=== PATIENT | female | born 1965 | race Caucasian/White ===

== ENCOUNTER 2022-07-31 14:00 | Inpatient (IN) ==
--- OUTSIDE RECORDS SUMMARY | 2022-07-31 14:56 | External Medical Summary | Encounter Summary ---
:1965 Author Care Team Providers Name Role Phone Shakila Crockett NP Primary Care Provider [phone] Marisa Goyal DO General Surgeon [phone] Reason for Visit Left arm pain left arm swollen after surgery Assessment and Plan 1. Phlebitis Patient had dropped a metal planter on her foot and had a laceration. Patient went to the emergency department and was found to have metal shards that she needed to have surgery. For the last 2 days lonnie lebron's left arm along the medial aspect above her elbow is started to hurt and have redness. Patient did have an left antecubital IV for surgery. Erythemic area is 10-1/2 cm x 5 cm. Patient is currently on cephalexin 500 mg 4 times a day. Plan: We will start patient on sulfameth oxazole trimethoprim 1 tablet twice daily for 7 days and order a stat venous ultrasound of her left upper extremity. We will call patient with these results and l et her know if she needs to continue wit h her antibiotics. sulfamethoxazole 800 mg-trimethoprim 160 mg tablet US, duplex, venous, upper extremity Discussion Note: None recorded.Patient educational handouts: No information available. Plan of Care Reminders Provider Appointments Medicare Annual 08/12/2022 3:15PM Shakila Zheng, [facility] CABLE INSTALLATION MANAGER Return to Office on or around [address] mukul NP 07/30/2023 Return to Office on or around 09/27/2023 Lab None recorded. Referral None recorded. Procedures None recorded. Surgeries None recorded. Imaging US, Duplex, Venous, 05/05/2022 [facility] Upper Extremity Medications Name Start Date albuterol 90 mcg/actuation aerosol inhaler albuterol sulfate HFA 90 mcg/actuation aerosol inhaler inhale 2 puffs by mouth every 6 hours i f needed for shortness of ... (REFER TO PRESCRIPTION NOTES). atorvastatin 40 mg tablet take 1 tablet by mouth once daily calcium carbonate 1200 mg daily calcium carbonate 600 mg-vitamin D3 5 mcg (200 unit) t ablet cyanocobalamin (vit B-12) 1,000 mcg/mL injection solut ion Inject 1 mL every month by intramuscular route. Eliquis 5 mg tablet take 2 tablets by mouth twice a day for 7 days then t gabriela 1 tablet twice a day eszopiclone 1 mg tablet take 1 tablet by mouth at bedtime fentanyl 12 mcg/hr transdermal patch apply 1 patch every 72 hours fluoxetine 40 mg capsule take 2 capsules by mouth once daily ipratropium 0.5 mg-albuterol 2.5 mg/2.5 mL solution fo r nebulization Inhale 1 mL every 6 hours by inhalation route as need ed. levothyroxine 100 mcg tablet take 1 tablet by mouth once daily lithium carbonate 300 mg capsule take 1 capsule by mouth once daily metoclopramide 10 mg tablet take 1 tablet by mouth before meals TAKE ABOUT 30 MIN UTES BEFORE MEALS molnupiravir 200 mg capsule (EUA) naloxone 4 mg/actuation nasal spray ADMINISTER A SINGLE spray INTO ONE NOSTRIL CALL 911 M AY REPEAT ONCE omeprazole 20 mg capsule,delayed release take 1 capsule by mouth twice a day oxycodone-acetaminophen 10 mg-325 mg tablet take 1 tablet by mouth three times a day NEEDED FO R PAIN Prolia 60 mg/mL subcutaneous syringe 07/17/2022 Inject 1 mL every day by subcutaneous route. promethazine 25 mg tablet take 1 tablet by mouth every 8 hours Promethegan 25 mg rectal suppository unwrap and insert 1 suppository rectall y every 6 hours if needed for nausea and vomiting scopolamine 1 mg over 3 days transdermal patch apply 1 PATCH TO SKIN BEHIND EAR AND REPLACE EVERY 72 HOURS DIRECTED sucralfate 100 mg/mL oral suspension take 10 milliliters by mouth four times a day topiramate 25 mg tablet take 1-4 tablets by mouth twice a day Trelegy Ellipta 1 qd valacyclovir 1 gram tablet take 1 tablet by mouth twice a day Vitamin D3 25 mcg (1,000 unit) capsule Take 2 capsules every day by oral route. Xtampza ER 18 mg capsule sprinkle take 1 capsule by mouth every 12 hours Yupelri 175 mcg/3 mL solution for nebulization inhale contents of 1 vial WITH NEBULIZE R ONCE DAILY RINSE AND CLEAR MOUTH AFTER USE zolpidem 10 mg tablet take 1 tablet by mouth at bedtime Notes: Also takes Chad, monty med ications with patient verbally. -AG 07/30 Medications Administered None recorded. Vitals Height Weight BMI Blood Pressure 5 ft 6.5 in 112/58 mm[Hg] Results Lab Results None recorded. 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 Bipolar Disorder Active 11/14/2019 History of Malignant Neoplasm of Cervix Active 11/14/20 19 History of Malignant Neoplasm of Uterine Body Active History of non-Hodgkins Lymphoma Active 11/14/2019 History of Pulmonary Embolus Active 11/14/2019 Impingement Syndrome of Shoulder Region Active 05/02/20 20 Partial Thickness Rotator Cuff Tear Active 05/02/2020 Primary Herpes Simplex Infection of Genitalia Active SjGren's Syndrome Active 08/06/2021 Persistent Insomnia Active 02/19/2022 Unexplained Weight Loss Active 02/19/2022 Insomnia Active 02/25/2022 Second Degree Atrioventricular Block Active 04/16/2022 Bradycardia Active 04/16/2022 Postural Dizziness Active 04/16/2022 Nausea and Vomiting Active 04/16/2022 Phlebitis Active 05/05/2022 Thrombophlebitis Active 05/05/2022 Superficial Thrombophlebitis Active 05/06/2022 Hernia of Anterior Abdominal Wall Active 06/17/2022 Dysfunction of Eustachian Tube Active 07/03/2022 Lymphadenopathy Active 07/03/2022 History of Myocardial Infarction Active 07/17/2022 Lesion of Spleen Active 07/17/2022 Malignant Neoplastic Disease Active Pulmonary Embolism Active Pharyngitis Active Acute Exacerbation of Chronic Bronchitis Active Chronic Obstructive Lung Disease Active Cholecystitis Active Cellulitis Active Pain in Right Lower Limb Active Vertigo Active Headache Active Neck Swelling Active Cough Active Chest Pain Active Rib Pain Active Fracture of Phalanx of Foot Active Procedures Date Name Performed by 11/16/2019 Hysterectomy Information not avai lable 01/10/2019 Excision Information not avai lable Notes: Excision of soft ti ssue masses, left elbow in the subcutaneous tissue by Dr. Marisa Goyal. 11/16/2013 Breast Implants Information not avai lable Fracture Surgery Information not avai lable Notes: left foot open fx metatarsals Procedure on Tongue Information not avai lable Notes: removed lump Elbow Surgery Information not avai lable Notes: multiple soft tissue mass remov als Wrist Surgery Information not avai lable Notes: left Shoulder Surgery Information not avai lable Notes: left Caesarean Section Information not avai lable Tonsilectomy/adenoids Information not av ailable 04/16/2022 [facility] [address] [place] [address] [place] [id number] (Work Place) 05/05/2022 US, Duplex, Venous, Upper Extremity [facility] [address] [facility] [place] [id number] (Work Place) Vaccine List Vaccine Type COVID-19 (SARS-COV-2) vaccine, unspecifi ed 12/31/2020 01/28/2021 influenza, injectable, quadrivalent, pre servative free 09/27/20180.5 mL 09/12/20190.5 mL 10.5 mL Tdap 09/27/20180.5 mL Social History Tobacco Smoking Status Light Tobacco Smoker (1/4 pack per da y) Do you have difficulty walking or climbing N stairs? What type of diet are you following? REGULAR Are you able to walk? YESWOREST Are you able to care for yourself? Y Are you currently employed? N Have you processed blood or body fluids N from an Ebola virus disease patient without appropriate PPE? What is your relationship status? What is your level of alcohol consumption? None Which illicit or recreational drugs have none you used? Have you been to an area known to be high N risk for COVID-19? Are you deaf or do you have serious N difficulty hearing? Are you passively exposed to smoke? Y Do you use your seat belt or car seat Y routinely? Do you or have you ever used any other N forms of tobacco or nicotine? Do you have difficulty dressing or bathing? N What is the highest grade or level of [id number] school you have completed or the highest degree you have received? Has tobacco cessation counseling been Y provided? Are you blind or do you have difficulty Y seeing? Do you have smoke and carbon monoxide Y detectors in your home? In the 14 days before symptom onset, have N you had close contact with a person who is under investigation for COVID-19 while that person was ill? Do you have difficulty doing errands alone? N Do you reside in or have you traveled to an area where Ebola virus transmission is active? What was the date of your most recent 07/30/2022 tobacco screening? Do you or have you ever used e-cigarettes Current user of el ectronic cigarettes or vape? Do you have an advanced directive? N Do you use any illicit or recreational N drugs? What is your exercise level? Occasional In the 14 days before symptom onset, have N you had close contact with a laboratory-confirmed COVID-19 while that case was ill? Have there been any changes to your family N or social situation? How many years have you smoked tobacco? 35 Do you or have you ever used smokeless Never used smokeless tobacco tobacco? On what date was tobacco cessation 07/03/2022 counseling provided? Do you have difficulty concentrating, N remembering or making decisions? What is your level of caffeine consumption? Heavy Do you feel stressed (tense, restless, [id number] nervous, or anxious, or unable to sleep at night)? 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 Yes Past Encounters 05/05/2022 Phlebitis Shakila Crockett CABLE INSTALLATION MANAGER: [address] [facility] [place] [address], Ph. 04/16/2022 Postural Dizziness; Nausea and Vomiting; Bradycardia; Second Degree Atrioventricular Block Shakila Crockett, CABLE INSTALLATION MANAGER: [address] [place] [address], Ph. History of Present Illness Note: <div>56-year-old female in today with concerns of left arm pain after a foot surgery.</div><div>
</div><div>Patient had dropped a metal planter on her foot and had a laceration. Patient went to the emergency department and was found to have metal shards that sheneeded to have surgery. For the last 2 days patient's left arm along the medial aspect aboveher elbow is started to hurt and have redness. Patient did have an left antecubital IV for surgery. Erythemic area is 10-1/2 cm x 5 cm. Patient is currently on cephalexin 500 mg 4 times a day.</div> Review of Systems Comprehensive General Adult ROS Reported By: Patient Constitutional: Required Findings Pain scale (5 / 10). Constitutional: no fever, no night sweats, no s ignificant weight gain, no significant weight loss, no exercise intolerance, no chills, no malaise Eyes: Eyes: no dry eyes, no vision change, no irritation, no eye disease/injury ENMT: Ears: no difficulty hearing, no ear pain. Nose: no frequent nosebleeds, no nose problems , no sinus problems. Mouth/Throat: no sore throat, no bleeding gums, no snoring, no dry mouth, no mouth ulcers, no oral abnorm alities, no teeth problems, no ringing in the ears, no sinu sitis Cardiovascular: Cardiovascular: no chest jovanni n, no arm pain on exertion, no shortness of breath when wal hossein, no shortness of breath when lying down, no palpitations, no known heart murmur, no ankle swelling Respiratory: Respiratory: cough Gastrointestinal: Gastrointestinal: no abdomin al pain, no nausea, no vomiting, no constipation, normal appe tite, no diarrhea, not vomiting blood, no dyspepsia, no GERD Genitourinary: Genitourinary: no incontinen ce, no difficulty urinating, no hematuria, no increased freq uency Musculoskeletal: Musculoskeletal: muscle ache s, difficulty walking Integumentary: Skin: no abnormal mole, no j aundice, no rashes, no laceration, no non-healing areas, no lorna nges in hair/nails, no psoriasis, no change in skin color, no breast lump Neurologic: Neurologic: weakness, dizzin ess, gait dysfunction Psychiatric: Psych: anxiety Endocrine: Endocrine: no fatigue Hematologic/Lymphatic: Hematologic/Lymphatic no swo llen glands, no bruising, no excessive bleeding, no anemi a, no phlebitis Allergic/Immunologic: Allergy/Immunologic: no runn y nose, no sinus pressure, no itching, no hives, no freque nt sneezing Notes: <div><strong>PAIN ASSESSMENT </strong></div><div>1. Pain assessed rating {{0|1|2|3|4| 5*|6|7|8|9|10}}/10 using standard pain scale.</div><div>2. Int ervention for pain {{n/a|yes|no}} ___</div><div>3. Pain reassessed at minutes as {{0|1|2 |3|4|5|6|7|8|9|10}} using standard pain scale.</div><div><stron g> SAFETY / ABUSE SCREENING ASSESSMENT </strong></div><d iv>1. Have you fallen in the last 30 days? {{yes*|no}}</div><d iv>2. Are you currently in a relationship where you feel threatened or afraid? {{yes|no*}}</div><div>3. [place] / neglect symptoms observed by clinician? {{yes|no}} If yes , was a referral made to an agency {{n/a|yes|no}}</div><div>&lt ;br></div> Physical Exam Skin Exam Reported By: Patient Skin: Lower Extremities Right: pat ch; Warm and tender Notes: <div>General appearance: No acute distress, pleasant.
Grooming: Adequate.
Orientation: X3
Speech: Fluent
Comprehension: Intact
Eye contact: Good< br>Mood: Good
Thoughts: Logical
Insight: Good
Judgment: Good
Recall: Good</div><div>Assessment: 2 0-minute [id number] interview discussing symptoms and treatment optio ns
</div>"
--- OUTSIDE RECORDS SUMMARY | 2022-07-31 14:56 | External Medical Summary ---
:1965 Author Care Team Providers Name Role Phone ALVAL STOCK DO General Surgeon [phone] [employer]AKIL[employer] Primary Care Provider [phone] Allergies Code Code System Name Reaction Severity Status Onset 7052 RxNorm Morphine Active 05/05/2022 NKDA Notes: Patient indicated NO allergies 07/29/2022 Medications Name Status Start Date Stop Date albuterol 90 mcg/actuation aerosol inhaler Active Not available albuterol sulfate HFA 90 mcg/actuation aerosol inhaler Active Not available inhale 2 puffs by mouth every 6 hours i f needed for shortness of ... (REFER TO PRESCRIPTION NOTES). amoxicillin 875 mg-potassium clavulanate 125 mg Completed 04/22/2017 01/04/2019 tablet aspirin 81 mg tablet,delayed release Completed 06/17/2022 atorvastatin 40 mg tablet Active Not av ailable take 1 tablet by mouth once daily atorvastatin calcium 40 mg tabs Completed 04/16/2020 azithromycin 250 mg tablet Completed 01/21 take 2 tablets by mouth today then take 1 tablet DAILY FOR 4 DA YS azithromycin 500 mg tablet Completed 08/02 BinaxNOW COVID-19 Ag Card kit Completed biotin Completed 04/16/2020 calcium carbonate Active Not available 1200 mg daily calcium carbonate 600 mg-vitamin D3 5 mcg (200 Active Not available unit) tablet cephalexin 500 mg capsule Completed 2021 take 1 capsule by mouth four times a day ciprofloxacin 250 mg tablet Completed 09/16 clotrimazole 10 mg sherin Completed 2019 cyanocobalamin (vit B-12) 1,000 mcg/mL injection solution Active Not available Inject 1 mL every month by intramuscular route. diphenhydramine 25 mg-acetaminophen 500 mg Completed 01/05/2017 tablet docusate sodium 100 mg capsule Completed 0 04/22/2017 Eliquis 5 mg tablet Active Not availabl e take 2 tablets by mouth twice a day for 7 days then take 1 tablet twice a day erythromycin 5 mg/gram (0.5 %) eye ointment Completed 05/16/2019 eszopiclone 1 mg tablet Active Not avai lable take 1 tablet by mouth at bedtime eszopiclone 2 mg tablet Completed 02/20/20 22 take 1 tablet by mouth at bedtime fentanyl 12 mcg/hr transdermal patch Active Not available apply 1 patch every 72 hours fluconazole 150 mg tablet Completed 2018 Take 1 tablet every day by oral route. fluconazole 200 mg tablet Completed 2017 fluoxetine 20 mg capsule Completed 022 fluoxetine 40 mg capsule Active Not arpit ilable take 2 capsules by mouth once daily fluoxetine 60 mg tablet Completed 11/05/20 21 take 1 tablet by mouth once daily fluticasone propionate 50 mcg/actuation blister Completed 04/28/2017 powder for inhalation hydrocodone 10 mg-acetaminophen 325 mg tablet Completed 10/29/2016 hydrocodone 5 mg-acetaminophen 325 mg tablet Completed 06/17/2022 take 1 tablet by mouth every 6 hours hydrocodone 7.5 mg-acetaminophen 325 mg tablet Completed 10/29/2016 ibuprofen Completed 11/13/2021 prn ibuprofen 200 mg capsule Completed 017 ipratropium 0.5 mg-albuterol 2.5 mg/2.5 mL solution for nebuliza tion Active Not available Inhale 1 mL every 6 hours by inhalation route as needed. ipratropium 0.5 mg-albuterol 3 mg (2.5 mg Completed 06/17/2022 base)/3 mL nebulization soln levothyroxine 100 mcg tablet Active Not available take 1 tablet by mouth once daily levothyroxine 50 mcg tablet Completed 12/17 levothyroxine 75 mcg tablet Completed 07/17 levothyroxine 88 mcg tablet Active Not available levothyroxine sodium 100 mcg tabs Completed 04/16/2020 lidocaine 5 % topical patch Active 07/31/2021 Not available lithium carbonate 300 mg capsule Active Not available take 1 capsule by mouth once daily lithium carbonate 300 mg tablet Completed 09/27/2018 Take 1 tablet every day by oral route. methylprednisolone 4 mg tablets in a dose pack Completed 11/13/2021 use as directed FOLLOW DIRECTIONS ON BACK OF FOIL PACK metoclopramide 10 mg tablet Active Not available take 1 tablet by mouth before meals TAKE ABOUT 30 MINUTES BEFOR E MEALS molnupiravir 200 mg capsule (EUA) Active Not available naloxone 4 mg/actuation nasal spray Active Not available ADMINISTER A SINGLE spray INTO ONE NOSTRIL CALL 911 MAY REPEAT ONCE nystatin 100,000 unit/mL oral suspension Completed 11/13/2021 omeprazole 20 mg cpdr Completed 04/16/2020 omeprazole 20 mg capsule,delayed release Active Not available take 1 capsule by mouth twice a day ondansetron HCl 4 mg tablet Completed 12/21/201712/17 oxycodone ER 10 mg tablet,crush resistant,extended release 12 hr Completed 11/14/2019 Take 1 tablet every 12 hours by oral route. oxycodone-acetaminophen 10 mg-325 mg tablet Active Not available take 1 tablet by mouth three times a day NEEDED FOR PAIN OxyContin 20 mg tablet,crush resistant,extended release Unknown Not available take 1 tablet by mouth every 12 hours oxygen Completed 11/13/2021 Paxlovid 300 mg (150 mg x 2)-100 mg tablets in a dose pack (EUA) Completed 05/06/2022 Take 3 tablets twice a day by oral route. prednisone 10 mg tablet Completed 12/21/2017 01/04/20 19 prednisone 20 mg tablet Completed 01/22/20 21 take 1 tablet by mouth once daily prednisone 5 mg tablet Completed 6 pregabalin 100 mg capsule Completed 2016 Prolia 60 mg/mL subcutaneous syringe Active 07/17/2022 Not available Inject 1 mL every day by subcutaneous route. promethazine 25 mg tablet Active Not av ailable take 1 tablet by mouth every 8 hours Promethegan 25 mg rectal suppository Active Not available unwrap and insert 1 suppository rectall y every 6 hours if needed for nausea and vomiting rivaroxaban 10 mg tablet Completed 016 rivaroxaban 20 mg tablet Completed 017 scopolamine 1 mg over 3 days transdermal patch Active Not available apply 1 PATCH TO SKIN BEHIND EAR AND REPLACE EVERY 72 HOURS DIRECTED sennosides 8.6 mg tablet Completed 016 sertraline 100 mg tablet Completed 020 Take 1 tablet every day by oral route. Spiriva with HandiHaler Completed 09/27/20 18 1 inhalation daily sucralfate 1 gram tablet Completed 018 sucralfate 100 mg/mL oral suspension Active Not available take 10 milliliters by mouth four times a day sulfamethoxazole 800 mg-trimethoprim 160 mg tablet Active Not available take 1 tablet by mouth twice a day for 7 days Symbicort 160 mcg-4.5 mcg/actuation HFA aerosol Completed 06/17/2022 inhaler tiotropium bromide 18 mcg capsule with Completed 06/17/2022 inhalation device topiramate 25 mg tablet Active Not avai lable take 1-4 tablets by mouth twice a day Trelegy Ellipta Active Not available 1 qd valacyclovir 1 gram tablet Active Not a vailable take 1 tablet by mouth twice a day valacyclovir 500 mg tablet Completed 06/17 Vitamin D3 25 mcg (1,000 unit) capsule Active Not available Take 2 capsules every day by oral route. Xtampza ER 18 mg capsule sprinkle Active Not available take 1 capsule by mouth every 12 hours Yupelri 175 mcg/3 mL solution for nebulization Active Not available inhale contents of 1 vial WITH NEBULIZE R ONCE DAILY RINSE AND CLEAR MOUTH AFTER USE zolpidem 10 mg tablet Active Not availa ble take 1 tablet by mouth at bedtime zolpidem 5 mg tablet Completed 04/16/2022 take 1 tablet by mouth at bedtime Notes: Also takes Kratom, verified med ications with patient verbally. 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 Al Stock. 11/16/2013 Breast Implants Information not avai lable [...] avai lable Tonsilectomy/adenoids Information not av ailable 05/16/2019 Unlisted Imaging Order [facility] [address] [place] [id number] (Work Place) 07/19/2019 MAMMO, Screening, Bilateral [facility] [address] [place], [place] [id number] (Work Place) 08/02/2019 MAMMO, Diagnostic, Digital, Unilateral [facility] [address] [place] [id number] (Work Place) 11/30/2019 US, Abdomen [facility] [address] [place] [id number] (Work Place) 01/30/2020 US, Breast [facility] [address] [place] [address], [place] [id number] (Work Place) 02/15/2020 Unlisted Imaging Order [facility] [address] [place] [id number] (Work Place) 06/19/2020 Dexa [facility] [address] [place] [id number] (Work Place) 10/22/2020 MAMMO, Screening, Digital, Bilateral [facility] [address] [place] [id number] (Work Place) 10/22/2020 US, Breast, Unilateral [facility] [address] [place] [id number] (Work Place) 08/06/2021 MAMMO, Screening, Digital, Bilateral [facility] [address] [place] [id number] (Work Place) 11/18/2021 CT, Neck, Soft Tissue, W/wo Contrast [facility] [address] [place] [address], [place] [id number] (Work Place) 12/11/2021 PET-CT, Skull Base to Mid-thigh Scan [facility] [address] [place] [address], [place] [id number] (Work Place) 01/02/2022 XR, Chest, 2 View [facility] [address] [place] [address], [place] [id number] (Work Place) 04/16/2022 Electrocardiogram [facility] [address] [place] [id number] (Work Place) 05/05/2022 US, Duplex, Venous, [facility] Extremity [facility] [address] [place] [address], [place] [id number] (Work Place) Results Lab Results Date Name Specimen Result Interpretation Description Value Range Status Address 04/16/2022 CBC W/ Whole Wbc 4.6 K/mcL 4.5-11.0 Final P athologists' Auto Diff Blood K/mcL Regiona l Lab: [address] [facility] , [place] Whole Rbc 4.13 3.59-5.38 Final Patholo gists' Blood M/mcL M/mcL Regional L ab: [address] [facility] , [place] Whole Hgb 12.6 g/dL 11.2-15.7 Final Path ologists' Blood g/dL Regional L ab: [address] [facility] , [place] Whole Hct 38.6 % 34.1-44.9 % Final Patho logists' Blood Regional L ab: [address] [facility] , [place] Whole Mcv 93.5 fL 80.0-100.0 Final Patho logists' Blood fL Regional L ab: [address] [facility] , [place] Whole Mch 30.5 pg 26.0-34.0 pg Final Pat hologists' Blood Regional L ab: [address] [facility] , [place] Whole Mchc 32.6 g/dL 31.0-36.0 Final Path ologists' Blood g/dL Regional L ab: [address] [facility] , [place] Whole Rdw 13.1 % 11.5-14.5 % Final Patho logists' Blood Regional L ab: [address] [facility] , [place] Whole Plt CT 263 K/mcL 140-440 Final Patho logists' Blood K/mcL Regional L ab: [address] [facility] , [place] Whole High Mpv 10.6 fL 7.4-10.4 fL Final Path ologists' Blood Regional L ab: [address] [facility] , [place] Whole Neut % 38.8 % 38.0-78.0 % Final Path ologists' Blood Regional L ab: [address] [facility] , [place] Whole High Lymph 50.2 % 15.5-49.0 % Final Patho logists' Blood % Regional L ab: [address] [facility] , [place] Whole [place] % 6.8 % 1.0-12.0 % Final Patho logists' Blood Regional L ab: [address] [facility] , [place] Whole Eos % 3.5 % 0.0-7.0 % Final Patholo gists' Blood Regional L ab: [address] [facility] , [place] Whole Baso % 0.7 % 0.0-2.0 % Final Pathol ogists' Blood Regional L ab: [address] , [place] Whole Low Absolu 1.78 1.80-8.00 Final Pathol ogists' Blood te K/mcL K/mcL Regional L ab: Neutrop [address], hil [place] Count Whole Lymph 2.30 1.50-4.80 Final Patholo gists' Blood # K/mcL K/mcL Regional L ab: [address] , [place] Whole [place] # 0.31 0.10-0.90 Final Pathol ogists' Blood K/mcL K/mcL Regional L ab: [address] , [place] Whole Eos # 0.16 0.00-0.70 Final Patholo gists' Blood K/mcL K/mcL Regional L ab: [address] [facility] , [place] Whole Baso # 0.03 0.00-0.30 Final Pathol ogists' Blood K/mcL K/mcL Regional L ab: [address] [facility] , [place] 04/16/2022 Troponin Plasma Tropon <0.01 <0.03 NG/mL Final Pathologists' T, Serum in T NG/mL Regional Lab: [address] [place] [address] 04/16/2022 CMP, Plasma Glucos 87 mg/dL 70-105 mg/dL Lesli l Pathologists' Serum or e,rando Regiona l Lab: Plasma m [address] [facility] , [place] Plasma Blood 8 mg/dL 6-20 mg/dL Final Patho logists' Urea Regional L ab: Nitroge [address], n [place] Plasma Creati 0.6 mg/dL 0.6-1.1 Final Patho logists' nine mg/dL Regional L ab: [address] , [place] Plasma Sodium 137 133-145 Final Patholog ists' mmol/L mmol/L Regional L ab: [address] , [place] Plasma Potass 4.3 3.3-5.1 Final Patholog ists' ium mmol/L mmol/L Regional L ab: [address] [facility] , [place] Plasma Chlori 101 96-108 Final Pathologi sts' de mmol/L mmol/L Regional L ab: [address] [facility] , [place] Plasma Carbon 30 mmol/L 22-30 mmol/L Final Pathologists' Dioxide Regional Lab: [address] [facility] , [place] Plasma Low Anion 6.0 8.0-16.0 Final Patholog ists' Gap Regional L ab: [address] , [place] Plasma Calciu 8.7 mg/dL 8.6-10.4 Final Path ologists' m mg/dL Regional L ab: [address] , [place] Plasma Total 6.1 gm/dL 5.9-8.4 Final Pathol ogists' Protein gm/dL Regional Lab: [address] , [place] Plasma Albumi 4.2 gm/dL 3.2-5.2 Final Patho logists' n gm/dL Regional L ab: [address] , [place] Plasma Low Globul 1.9 gm/dL 2.2-3.7 Final Patho logists' in gm/dL Regional L ab: [address] , [place] Plasma Alb/gl 2.2 1.0-2.3 Final Patholog ists' ob Regional L ab: Ratio [address] , [place] Plasma Biliru 0.3 mg/dL 0.1-1.0 Final Patho logists' bin,tot mg/dL Regional Lab: al [address] , [place] Plasma AST/SG 18 U/L <32 U/L Final Patholog ists' OT Regional L ab: [address] , [place] Plasma ALT/SG 8 U/L <40 U/L Final Patholog ists' PT Regional L ab: [address] , [place] Plasma Low Alkali 36 U/L 39-117 U/L Final Patho logists' ne Regional L ab: Phospha [address], tase [place] Plasma Glomer 102 Final Pathologi sts' ular Regional L ab: Filtrat [address], ion [place] Rate 04/16/2022 UA U Urine yellow Final Pathol ogists' W/microsc Color Regiona l Lab: opic [address] , Always, [place] (CS If Ind.) U Urine clear clear Final Pathologis ts' [place] Regional Lab: nce [address] , [place] U Specif <=1.005 1.000-1.035 Final Pat hologists' ic Regional L ab: Deport [address], ,urine [place] U pH,uri 6.0 5.0-9.0 Final Patholog ists' ne Regional L ab: [address] , [place] U Urine negative negative Final Pathol ogists' Protein mg/dL mg/dL Regional Lab: [address] , [place] U Urine negative negative Final Pathol ogists' Glucose mg/dL mg/dL Regional Lab: (UA) [address] , [place] U Urine negative negative Final Pathol ogists' Ketone mg/dL mg/dL Regional L ab: [address] , [place] U Urine normal negative/nor Final Path ologists' Urobili mg/dL mal mg/dL Region al Lab: nogen [address] , [place] U Urine negative negative Final Pathol ogists' Bilirub mg/dL mg/dL Regional Lab: in [address] , [place] U ABNORM Urine small negative Final Patholog ists' AL Blood valeria/mcL valeria/mcL Regional Lab: [address] , [place] U Urine negative negative Final Pathol ogists' Nitrite Regional Lab: [address] , [place] U Urine negative negative /uL Final Pa thologists' Leukocy /uL Regional Lab: te [address] , Esteras [place] e U Urine 2 /hpf 0-3 /hpf Final Patholog ists' RBC Regional L ab: [address] , [place] U Urine 1 /hpf 0-4 /hpf Final Patholog ists' WBC Regional L ab: [address] , [place] U Urine 0 /hpf 0-4 /hpf Final Patholog ists' [place] Regional Lab: s Epi [address] , Cells [place] U Urine none /hpf 0 /hpf Final Patholo gists' Bacteri Regional Lab: a [address] , [place] U ABNORM Urine few /hpf none /hpf Final Patho logists' AL Mucus Regional L ab: [address] , [place] U Add no Final Pathologis ts' Culture Regional Lab: ? [address] , [place] 04/10/2022 Noninvasi Stool Cologu negative negative Final [employer] [facility] Colorecta Result (Cologu jacqui l Cancer Reporta Orders Only): DNA + ble [address] , Blood Margy Screening , QL, Stool 02/19/2022 Drug U Amphet none Final Patho logists' Screen, amine,u detected Region al Lab: Urine rine [address] , Screen [place] U Barbit none Final Pathologi sts' urates, detected Regiona l Lab: Urine [address] , Screen [place] U Benzod none Final Pathologi sts' iazepin detected Regiona l Lab: es,urin [address], e,scre [place] U Cannab none Final Pathologi sts' inoid,u detected Regiona l Lab: rine [address] , Screen [place] U Cocain none Final Pathologi sts' e,urine detected Regiona l Lab: Screen [address] , [place] U ABNORM Opiate suspect Final Patholog ists' AL ,urine positive Regional Lab: Screen [address] , [place] U ABNORM Oxycod suspect Final Patholog ists' AL one,uri positive Regiona l Lab: ne [address] , Screen [place] U Phenyc none Final Pathologi sts' yclidin detected Regiona l Lab: e,urine [address], Screen [place] U Methad none Final Pathologi sts' one,uri detected Regiona l Lab: ne [address] , Screen [place] 02/19/2022 Opiates, U Opiate positive Final P athologists' Quantitat Confirm Region al Lab: brayden, ation [address] , Urine [place] 02/19/2022 Oxycodone U Oxycod positive Final Pathologists' ,oxymorph one,oxy Region al Lab: one Conf morphon [address], ([facility]) e Conf [place] ([facility]) 02/19/2022 Oxycodone U Oxycod positive Final Pathologists' ,oxymorph one,oxy Region al Lab: one Conf morphon [address], ([facility]) e Conf [place] ([facility]) 02/11/2022 BMP, Plasma High Glucos 130 mg/dL 70-105 mg/dL Fin al Pathologists' Serum or e,rando Regiona l Lab: Plasma m [address] , [place] Plasma Low Blood 5 mg/dL 6-20 mg/dL Final Patho logists' Urea Regional L ab: Nitroge [address], n [place] Plasma Creati 0.6 mg/dL 0.6-1.1 Final Patho logists' nine mg/dL Regional L ab: [address] , [place] Plasma Sodium 141 133-145 Final Patholog ists' mmol/L mmol/L Regional L ab: [address] , [place] Plasma Potass 4.0 3.3-5.1 Final Patholog ists' ium mmol/L mmol/L Regional L ab: [address] , [place] Plasma Chlori 108 96-108 Final Pathologi sts' de mmol/L mmol/L Regional L ab: [address] , [place] Plasma Carbon 23 mmol/L 22-30 mmol/L Final Pathologists' Dioxide Regional Lab: [address] , [place] Plasma Anion 10.0 8.0-16.0 Final Patholog ists' Gap Regional L ab: [address] , [place] Plasma Calciu 9.6 mg/dL 8.6-10.4 Final Path ologists' m mg/dL Regional L ab: [address] , [place] Plasma Glomer 102 Final Pathologi sts' ular Regional L ab: Filtrat [address], ion [place] Rate 02/11/2022 Magnesium Plasma Magnes 1.8 mg/dL 1.6-2.5 Final Pathologists' , Serum ium mg/dL Regional Lab: or Plasma [address] , [place] 02/11/2022 Phosphoru Plasma Phosph 4.1 mg/dL 2.5-4.5 Final Pathologists' s, Serum orus mg/dL Regional Lab: or Plasma [address], [place] 02/11/2022 [place], Serum Lithiu 0.6 Final Pat hologists' Serum m mmol/L Regional L ab: [address] , [place] 11/05/2021 CMP, Plasma Glucos 97 mg/dL 70-105 mg/dL Lesli l Pathologists' Serum or e,rando Regiona l Lab: Plasma m [address] , [place] Plasma Blood 7 mg/dL 6-20 mg/dL Final Patho logists' Urea Regional L ab: Nitroge [address], n [place] Plasma Creati 0.7 mg/dL 0.6-1.1 Final Patho logists' nine mg/dL Regional L ab: [address] , [place] Plasma Sodium 139 133-145 Final Patholog ists' mmol/L mmol/L Regional L ab: [address] , [place] Plasma Potass 3.5 3.3-5.1 Final Patholog ists' ium mmol/L mmol/L Regional L ab: [address] , [place] Plasma Chlori 104 96-108 Final Pathologi sts' de mmol/L mmol/L Regional L ab: [address] , [place] Plasma Carbon 26 mmol/L 22-30 mmol/L Final Pathologists' Dioxide Regional Lab: [address] , [place] Plasma Anion 9.0 8.0-16.0 Final Patholog ists' Gap Regional L ab: [address] , [place] Plasma Calciu 8.8 mg/dL 8.6-10.4 Final Path ologists' m mg/dL Regional L ab: [address] , [place] Plasma Total 6.1 gm/dL 5.9-8.4 Final Pathol ogists' Protein gm/dL Regional Lab: [address] , [place] Plasma Albumi 3.8 gm/dL 3.2-5.2 Final Patho logists' n gm/dL Regional L ab: [address] , [place] Plasma Globul 2.3 gm/dL 2.2-3.7 Final Patho logists' in gm/dL Regional L ab: [address] , [place] Plasma Alb/gl 1.7 1.0-2.3 Final Patholog ists' ob Regional L ab: Ratio [address] , [place] Plasma Biliru 0.2 mg/dL 0.1-1.0 Final Patho logists' bin,tot mg/dL Regional Lab: al [address] , [place] Plasma AST/SG 13 U/L <32 U/L Final Patholog ists' OT Regional L ab: [address] , [place] Plasma ALT/SG 8 U/L <40 U/L Final Patholog ists' PT Regional L ab: [address] , [place] Plasma Low Alkali 38 U/L 39-117 U/L Final Patho logists' ne Regional L ab: Phospha [address], tase [place] Plasma Glomer 98 Final Pathologi sts' ular Regional L ab: Filtrat [address], ion [place] Rate 11/05/2021 TSH, Plasma Thyroi 0.76 0.27-5.01 Final Pa thologists' Serum or d uIU/mL uIU/mL Regional Lab: Plasma Stimula [address], ting [place] Hormone 11/05/2021 CBC W/ Whole Wbc 6.4 K/mcL 4.5-11.0 Final P athologists' Manual Blood K/mcL Regional L ab: Diff [address] , [place] Whole Rbc 3.90 3.59-5.38 Final Patholo gists' Blood M/mcL M/mcL Regional L ab: [address] , [place] Whole Hgb 12.0 g/dL 11.2-15.7 Final Path ologists' Blood g/dL Regional L ab: [address] , [place] Whole Hct 36.5 % 34.1-44.9 % Final Patho logists' Blood Regional L ab: [address] , [place] Whole Mcv 93.6 fL 80.0-100.0 Final Patho logists' Blood fL Regional L ab: [address] , [place] Whole Mch 30.8 pg 26.0-34.0 pg Final Pat hologists' Blood Regional L ab: [address] , [place] Whole Mchc 32.9 g/dL 31.0-36.0 Final Path ologists' Blood g/dL Regional L ab: [address] , [place] Whole Rdw 13.0 % 11.5-14.5 % Final Patho logists' Blood Regional L ab: [address] , [place] Whole [address]t CT 303 K/mcL 140-440 Final Patho logists' Blood K/mcL Regional L ab: [address] , [place] Whole Mpv 10.3 fL 7.4-10.4 fL Final Path ologists' Blood Regional L ab: [address] , [place] Whole Low Segmen 37 % 38-78 % Final Patholog ists' Blood jg Regional L ab: Neutrop [address], hils [place] Whole High Lympho 53 % 15-49 % Final Patholog ists' Blood cyte Regional L ab: [address] , [place] Whole Monocy 5 % 1-12 % Final Pathologi sts' Blood te Regional L ab: [address] , [place] Whole Eosino 5 % 0-7 % Final Pathologi sts' Blood lasha Regional L ab: [address] , [place] Whole Platel normal normal Final Pathologi sts' Blood et Regional L ab: Estimat [address], e [place] Whole RBC normal normal Final Pathologis ts' Blood Morphol Regional Lab: ogy [address] , [place] 10/09/2021 [place], Serum Lithiu 0.5 Final Pat hologists' Serum m mmol/L Regional L ab: [address] , [place] 09/09/2021 [place], Serum Lithiu <0.1 Final Pat hologists' Serum m mmol/L Regional L ab: [address] , [place] 08/06/2021 Amylase, Plasma Low Amylas 27 U/L 28-100 U/L Final Pathologists' Serum or e Regional Lab: Plasma [address] , [place] 08/06/2021 Lipase, Plasma Lipase 15 U/L 7-60 U/L Final Pa thologists' Serum or Regional Lab: Plasma [address] , [place] 08/06/2021 CMP, Plasma Glucos 74 mg/dL 70-105 mg/dL Lesli l Pathologists' Serum or e,rando Regiona l Lab: Plasma m [address] , [place] Plasma Low Blood 5 mg/dL 6-20 mg/dL Final Patho logists' Urea Regional L ab: Nitroge [address], n [place] Plasma Creati 0.6 mg/dL 0.6-1.1 Final Patho logists' nine mg/dL Regional L ab: [address] , [place] Plasma Sodium 138 133-145 Final Patholog ists' mmol/L mmol/L Regional L ab: [address] , [place] Plasma Potass 4.8 3.3-5.1 Final Patholog ists' ium mmol/L mmol/L Regional L ab: [address] , [place] Plasma Chlori 101 96-108 Final Pathologi sts' de mmol/L mmol/L Regional L ab: [address] [place] Plasma Carbon 27 mmol/L 22-30 mmol/L Final Pathologists' Dioxide Regional Lab: [address] [place] Plasma Anion 10.0 8.0-16.0 Final Patholog ists' Gap Regional L ab: [address] , [place] Plasma Calciu 9.6 mg/dL 8.6-10.4 Final Path ologists' m mg/dL Regional L ab: [address] , [place] Plasma Total 6.6 gm/dL 5.9-8.4 Final Pathol ogists' Protein gm/dL Regional Lab: [address] [place] Plasma Albumi 4.2 gm/dL 3.2-5.2 Final Patho logists' n gm/dL Regional L ab: [address] , [place] Plasma Globul 2.4 gm/dL 2.2-3.7 Final Patho logists' in gm/dL Regional L ab: [address] , [place] Plasma Alb/gl 1.8 1.0-2.3 Final Patholog ists' ob Regional L ab: Ratio [address] , [place] Plasma Biliru 0.2 mg/dL 0.1-1.0 Final Patho logists' bin,tot mg/dL Regional Lab: al [address] , [place] Plasma AST/SG 15 U/L <32 U/L Final Patholog ists' OT Regional L ab: [address] , [place] Plasma ALT/SG 8 U/L <40 U/L Final Patholog ists' PT Regional L ab: [address] , [place] Plasma Alkali 45 U/L 39-117 U/L Final Patho logists' ne Regional L ab: Phospha [address], tase [place] Plasma Glomer 103 Final Pathologi sts' ular Regional L ab: Filtrat [address], ion [place] Rate 08/06/2021 TSH, Plasma Thyroi 0.97 0.27-5.01 Final Pa thologists' Serum or d uIU/mL uIU/mL Regional Lab: Plasma Stimula [address], ting [place] Hormone 08/06/2021 Lipid Plasma High Choles 247 mg/dL <200 mg/dL Final Pathologists' Panel, terol Regional L ab: Blood [address] , [place] Plasma High Trigly 346 mg/dL <150 mg/dL Final Pa thologists' cerides Regional Lab: [address] , [place] Plasma High LDL,ca 135 mg/dL <100 mg/dL Final Pa thologists' lculate Regional Lab: d [address] , [place] Plasma HDL 43 mg/dL >40 mg/dL Final Patho logists' Cholest Regional Lab: francisco [address] , [place] Plasma High non-HD 204 mg/dL <130 mg/dL Final Pa thologists' L Regional L ab: Cholest [address], francisco [place] 08/06/2021 CBC W/ Whole Wbc 5.5 K/mcL 4.5-11.0 Final P athologists' Auto Diff Blood K/mcL Regiona l Lab: [address] , [place] Whole Rbc 4.30 3.59-5.38 Final Patholo gists' Blood M/mcL M/mcL Regional L ab: [address] , [place] Whole Hgb 13.6 g/dL 11.2-15.7 Final Path ologists' Blood g/dL Regional L ab: [address] , [place] Whole Hct 40.1 % 34.1-44.9 % Final Patho logists' Blood Regional L ab: [address] , [place] Whole Mcv 93.3 fL 80.0-100.0 Final Patho logists' Blood fL Regional L ab: [address] , [place] Whole Mch 31.6 pg 26.0-34.0 pg Final Pat hologists' Blood Regional L ab: [address] , [place] Whole Mchc 33.9 g/dL 31.0-36.0 Final Path ologists' Blood g/dL Regional L ab: [address] , [place] Whole Rdw 13.2 % 11.5-14.5 % Final Patho logists' Blood Regional L ab: [address] , [place] Whole Plt CT 323 K/mcL 140-440 Final Patho logists' Blood K/mcL Regional L ab: [address] , [place] Whole High Mpv 10.6 fL 7.4-10.4 fL Final Path ologists' Blood Regional L ab: [address] , [place] Whole Neut % 46.0 % 38.0-78.0 % Final Path ologists' Blood Regional L ab: [address] , [place] Whole Lymph 45.8 % 15.5-49.0 % Final Patho logists' Blood % Regional L ab: [address] , [place] Whole [place] % 5.3 % 1.0-12.0 % Final Patho logists' Blood Regional L ab: [address] , [place] Whole Eos % 2.4 % 0.0-7.0 % Final Patholo gists' Blood Regional L ab: [address] , [place] Whole Baso % 0.5 % 0.0-2.0 % Final Pathol ogists' Blood Regional L ab: [address] , [place] Whole Absolu 2.51 1.80-8.00 Final Pathol ogists' Blood te K/mcL K/mcL Regional L ab: Neutrop [address], hil [place] Count Whole Lymph 2.50 1.50-4.80 Final Patholo gists' Blood # K/mcL K/mcL Regional L ab: [address] , [place] Whole [place] # 0.29 0.10-0.90 Final Pathol ogists' Blood K/mcL K/mcL Regional L ab: [address] , [place] Whole Eos # 0.13 0.00-0.70 Final Patholo gists' Blood K/mcL K/mcL Regional L ab: [address] , [place] Whole Baso # 0.03 0.00-0.30 Final Pathol ogists' Blood K/mcL K/mcL Regional L ab: [address] , [place] 08/06/2021 UA U Urine test not Final Path ologists' W/microsc Color performed Karine onal Lab: opic [address] , Always, [place] (CS If Ind.) U ABNORM Urine test not clear Final Patholog ists' AL Appeara performed Region al Lab: nce [address] , [place] U Specif test not 1.000-1.035 Final Pa thologists' ic performed Regiona l Lab: Deport [address], ,urine [place] U pH,uri test not 5.0-9.0 Final Pathol ogists' ne performed Regiona l Lab: [address] , [place] U ABNORM Urine test not negative Final Pathol ogists' AL Protein performed mg/dL Region al Lab: mg/dL [address] , [place] U ABNORM Urine test not negative Final Pathol ogists' AL Glucose performed mg/dL Region al Lab: (UA) mg/dL [address] , [place] U ABNORM Urine test not negative Final Pathol ogists' AL Ketone performed mg/dL Regiona l Lab: mg/dL [address] , [place] U ABNORM Urine test not negative/nor Final Pa thologists' AL Urobili performed mal mg/dL Reg ional Lab: nogen mg/dL [address] , [place] U ABNORM Urine test not negative Final Pathol ogists' AL Bilirub performed mg/dL Region al Lab: in mg/dL [address] , [place] U ABNORM Urine test not negative Final Pathol ogists' AL Blood performed mg/dL Regiona l Lab: mg/dL [address] , [place] U ABNORM Urine test not negative Final Pathol ogists' AL Nitrite performed Region al Lab: [address] , [place] U ABNORM Urine test not negative /ug Final Pa thologists' AL Leukocy performed Region al Lab: te /ug [address] , Esteras [place] e U Urine test not 0-3 /hpf Final Pathol ogists' RBC performed Regiona l Lab: /hpf [address] , [place] U Urine test not 0-4 /hpf Final Pathol ogists' WBC performed Regiona l Lab: /hpf [address] , [place] U Urine test not 0-4 /hpf Final Pathol ogists' [place] performed Region nc Lab: s Epi /hpf [address] , Cells [place] U ABNORM Urine test not 0 /hpf Final Patholog ists' AL Bacteri performed Region nc Lab: a /hpf [address] , [place] U Add test not Final Patholog ists' Culture performed Region nc Lab: ? [address] , [place] 02/26/2021 Drug U Amphet none Final Patho logists' Screen, amine,u detected Region al Lab: Urine rine [address] , Screen [place] U Barbit none Final Pathologi sts' urates, detected Regiona l Lab: Urine [address] , Screen [place] U Benzod none Final Pathologi sts' iazepin detected Regiona l Lab: es,urin [address], e,scre [place] U Cannab none Final Pathologi sts' inoid,u detected Regiona l Lab: rine [address] , Screen [place] U Cocain none Final Pathologi sts' e,urine detected Regiona l Lab: Screen [address] , [place] U ABNORM Opiate suspect Final Patholog ists' AL ,urine positive Regional Lab: Screen [address] , [place] U ABNORM Oxycod suspect Final Patholog ists' AL one,uri positive Regiona l Lab: ne [address] , Screen [place] U Phenyc none Final Pathologi sts' yclidin detected Regiona l Lab: e,urine [address], Screen [place] U Methad none Final Pathologi sts' one,uri detected Regiona l Lab: ne [address] , Screen [place] 02/26/2021 Opiates, U Opiate positive Final P athologists' Quantitat Confirm Region al Lab: brayden, ation [address] , Urine [place] 01/21/2021 Terence Prep, Swab Source other Final Pa thologists' Fungal Regional L ab: [address] , [place] Swab Specim other Final Pathologi sts' en Regional L ab: Descrip [address], tion [place] Swab Terence no Final Pathologis ts' Result budding Regional Lab: yeasts or [address], fungal [place] elements seen. 01/21/2021 Wet [place] Source other Final Pa thologists' Regional L ab: [address] , [place] Saline Specim other Final Pathologi sts' en Regional L ab: Descrip [address], tion [place] Saline Wet Final Pathologis ts' [place] Regional L ab: Result [address] , [place] 01/21/2021 Syphilis Serum Syphil non-react Final Pathologists' is brayden Regional L ab: [address] , [place] 01/21/2021 Hepatitis Serum Hepati non-react non-reactive Final Pathologists' Panel tis a brayden Regional L ab: (A+B+C), Antibod [address], Acute, y IgM [place] Serum Serum Hepati non-react non-reactive Final Pathologists' tis C brayden Regional L ab: Antibod [address], y [place] Serum Hepati non-react non-reactive Final Pathologists' tis B brayden Regional L ab: Core [address] , Antibod [place] y IgM Serum Hepati negative negative Final Patho logists' tis B Regional L ab: Surface [address], Antigen [place] 01/21/2021 HIV 1+2 Serum HIV non-react non-reactive Fin al Pathologists' AB + HIV 1/2 brayden Regional Lab: 1 P24 Ag, Ag/Ab [address], Qualitati 4TH [place] ve Generat Immunoass ion ay, Serum 01/21/2021 CT + NG Misc Chlamy negative negative Final Pathologists' RNA, zaid Regional L ab: Urine Trachom [address], atis [place] Misc Neisse negative negative Final Patho logists' refugio Regional L ab: Gonorrh [address], oeae [place] 01/21/2021 Hsv (1+2) Not High Hsv 1 8.90 Final Pat hologists' Igg Ab, Specified IgG, index Region al Lab: Serum Type [address] , Specifi [place] c Ab Not High Hsv 2 9.27 Final Pathologis ts' Specified IgG, index Regiona l Lab: Type [address] , Specifi [place] c Ab 09/19/2020 Phosphoru Plasma Phosph 4.3 mg/dL 2.5-4.5 Final Pathologists' s, Serum orus mg/dL Regional Lab: or Plasma [address], [place] 09/19/2020 BMP, Plasma Glucos 81 mg/dL 70-105 mg/dL Lesli l Pathologists' Serum or e,rando Regiona l Lab: Plasma m [address] , [place] Plasma Low Blood 4 mg/dL 6-20 mg/dL Final Patho logists' Urea Regional L ab: Nitroge [address], n [place] Plasma Creati 0.7 mg/dL 0.6-1.1 Final Patho logists' nine mg/dL Regional L ab: [address] , [place] Plasma Sodium 139 133-145 Final Patholog ists' mmol/L mmol/L Regional L ab: [address] , [place] Plasma Potass 3.6 3.3-5.1 Final Patholog ists' ium mmol/L mmol/L Regional L ab: [address] , [place] Plasma Chlori 101 96-108 Final Pathologi sts' de mmol/L mmol/L Regional L ab: [address] , [place] Plasma Carbon 29 mmol/L 22-30 mmol/L Final Pathologists' Dioxide Regional Lab: [address] , [place] Plasma Anion 9.0 8.0-16.0 Final Patholog ists' [place] Regional L ab: [address] , [place] Plasma Calciu 8.8 mg/dL 8.6-10.4 Final Path ologists' m mg/dL Regional L ab: [address] , [place] Plasma Glomer 98 Final Pathologi sts' ular Regional L ab: Filtrat [address], ion [place] Rate 09/19/2020 Magnesium Plasma Magnes 1.9 mg/dL 1.6-2.5 Final Pathologists' , Serum ium mg/dL Regional Lab: or Plasma [address], [place] 06/23/2020 C Diff STOOL Result Patho logists' Toxin s Regional L ab: A+B, [address] , Qualitati [place] ve, Stool 06/19/2020 CBC W/ Automated Wbc 4.9 K/mcL 4.50-11.00 Fin al Pathologists' Auto Diff blood K/mcL Regiona l Lab: basophil [address], count [place] (number/vo lume) Automated Rbc 4.18 3.59-5.38 Final Path ologists' blood M/mcL M/mcL Regional L ab: basophil [address], count [place] (number/vo lume) Automated Hemogl 12.8 g/dL 11.2-15.7 Final Pathologists' blood obin g/dL Regional L ab: basophil [address], count [place] (number/vo lume) Automated Hemato 39.2 % 34.1-44.9 % Final P athologists' blood crit Regional L ab: basophil [address], count [place] (number/vo lume) Automated Mean 93.8 fL 80.0-100.0 Final Pa thologists' blood Cell fL Regional L ab: basophil Volume [address], count [place] (number/vo lume) Automated Mean 30.6 pg 26.0-34.0 pg Final Pathologists' blood Corpusc Regional Lab: basophil ular [address], count Hemoglo Jaime (number/vo bin lume) Automated Mean 32.7 g/dL 31.0-36.0 Final P athologists' blood Corpusc g/dL Regional Lab: basophil ular [address], count HGB Jaime (number/vo Conc lume) Automated Red 13.6 % 11.5-14.5 % Final Pa thologists' blood Cell Regional L ab: basophil Distrib [address], count ution Jaime (number/vo Width lume) Automated [place] 280 K/mcL 140-440 Final Pa thologists' blood et K/mcL Regional L ab: basophil Count [address], count [place] (number/vo lume) Automated High Mean 11.1 fL 7.4-10.4 fL Final P athologists' blood Platele Regional Lab: basophil t [address], count Volume [place] (number/vo lume) Automated Gran % 50.0 % 38.0-78.0 % Final P athologists' blood Regional L ab: basophil [address], count [place] (number/vo lume) Automated Lymph 40.4 % 15.5-49.0 % Final Pa thologists' blood % Regional L ab: basophil [address], count [place] (number/vo lume) Automated [place] % 5.5 % 1.0-12.0 % Final Pa thologists' blood Regional L ab: basophil [address], count [place] (number/vo lume) Automated Eos % 3.3 % 0.0-7.0 % Final Path ologists' blood Regional L ab: basophil [address], count [place] (number/vo lume) Automated Baso % 0.8 % 0.0-2.0 % Final Pat hologists' blood Regional L ab: basophil [address], count [place] (number/vo lume) Automated Gran # 2.44 1.80-8.00 Final Pat hologists' blood K/mcL K/mcL Regional L ab: basophil [address], count [place] (number/vo lume) Automated Lymph 1.97 1.50-4.80 Final Path ologists' blood # K/mcL K/mcL Regional L ab: basophil [address], count [place] (number/vo lume) Automated [place] # 0.27 0.10-0.90 Final Pat hologists' blood K/mcL K/mcL Regional L ab: basophil [address], count [place] (number/vo lume) Automated Eos # 0.16 0.00-0.70 Final Path ologists' blood K/mcL K/mcL Regional L ab: basophil [address], count [place] (number/vo lume) Automated Baso # 0.04 0.00-0.30 Final Pat hologists' blood K/mcL K/mcL Regional L ab: basophil [address], count [place] (number/vo lume) 06/19/2020 CMP, Estimation Glucos 93 mg/dL 70-105 mg/dL Final Pathologists' Serum or of e,rando Regiona l Lab: Plasma glomerular m [address], filtration [place] rate (GFR)/1.73 sq m using serum, plasma, or whole blood creatin Estimation Blood 10 mg/dL 6-20 mg/dL Final Pathologists' of Urea Regional L ab: glomerular Nitroge [address], filtration n [place] rate (GFR)/1.73 sq m using serum, plasma, or whole blood creatin Estimation Creati 0.7 mg/dL 0.6-1.1 Final P athologists' of nine mg/dL Regional L ab: glomerular [address], filtration [place] rate (GFR)/1.73 sq m using serum, plasma, or whole blood creatin Estimation Sodium 143 133-145 Final Path ologists' of mmol/L mmol/L Regional L ab: glomerular [address], filtration [place] rate (GFR)/1.73 sq m using serum, plasma, or whole blood creatin Estimation Potass 3.5 3.3-5.1 Final Path ologists' of ium mmol/L mmol/L Regional L ab: glomerular [address], filtration [place] rate (GFR)/1.73 sq m using serum, plasma, or whole blood creatin Estimation Chlori 105 96-108 Final Patho logists' of de mmol/L mmol/L Regional L ab: glomerular [address], filtration [place] rate (GFR)/1.73 sq m using serum, plasma, or whole blood creatin Estimation Carbon 26 mmol/L 22-30 mmol/L Fin al Pathologists' of Dioxide Regional Lab: glomerular [address], filtration [place] rate (GFR)/1.73 sq m using serum, plasma, or whole blood creatin Estimation Anion 12.0 8-16 Final Pathol ogists' of [place] Regional L ab: glomerular [address], filtration [place] rate (GFR)/1.73 sq m using serum, plasma, or whole blood creatin Estimation Calciu 8.8 mg/dL 8.6-10.4 Final Pathologists' of m mg/dL Regional L ab: glomerular [address], filtration [place] rate (GFR)/1.73 sq m using serum, plasma, or whole blood creatin Estimation Total 6.3 gm/dL 5.9-8.4 Final Pa thologists' of Protein gm/dL Regional Lab: glomerular [address], filtration [place] rate (GFR)/1.73 sq m using serum, plasma, or whole blood creatin Estimation Albumi 3.8 gm/dL 3.2-5.2 Final P athologists' of n gm/dL Regional L ab: glomerular [address], filtration [place] rate (GFR)/1.73 sq m using serum, plasma, or whole blood creatin Estimation Globul 2.5 gm/dL 2.2-3.7 Final P athologists' of in gm/dL Regional L ab: glomerular [address], filtration [place] rate (GFR)/1.73 sq m using serum, plasma, or whole blood creatin Estimation Alb/gl 1.5 1.0-2.3 Final Path ologists' of ob Regional L ab: glomerular Ratio [address], filtration [place] rate (GFR)/1.73 sq m using serum, plasma, or whole blood creatin Estimation Biliru 0.2 mg/dL 0.0-1.0 Final P athologists' of bin,tot mg/dL Regional Lab: glomerular al [address], filtration [place] rate (GFR)/1.73 sq m using serum, plasma, or whole blood creatin Estimation AST/SG 14 U/l 0-37 U/l Final Pat hologists' of OT Regional L ab: glomerular [address], filtration [place] rate (GFR)/1.73 sq m using serum, plasma, or whole blood creatin Estimation ALT/SG 5 U/l 0-40 U/l Final Pat hologists' of PT Regional L ab: glomerular [address], filtration [place] rate (GFR)/1.73 sq m using serum, plasma, or whole blood creatin Estimation Alkali 39 U/L 39-117 U/L Final P athologists' of ne Regional L ab: glomerular Phospha [address], filtration tase [place] rate (GFR)/1.73 sq m using serum, plasma, or whole blood creatin Estimation Glomer 99 Final Patho logists' of ular Regional L ab: glomerular Filtrat [address], filtration ion [place] rate Rate (GFR)/1.73 sq m using serum, plasma, or whole blood creatin Estimation Result Patho logists' of s Regional L ab: glomerular [address], filtration [place] rate (GFR)/1.73 sq m using serum, plasma, or whole blood creatin 06/18/2020 Drug Urine Amphet none nondetected Final Pathologists' Screen, methadone amine,u detected Reg ional Lab: Urine detection rine [address], by Screen [place] screening method Urine Barbit none nondetected Final Path ologists' methadone urates, detected [facility] Lab: detection Urine [address], by Screen [place] screening method Urine Benzod none nondetected Final Path ologists' methadone iazepin detected [facility] Lab: detection es,urin [address], by e,scree [place] screening n method Urine Cannab none nondetected Final Path ologists' methadone inoid,u detected [facility] on[facility] Lab: detection rine [address], by Screen [place] screening method Urine Cocain none nondetected Final Path ologists' methadone e,urine detected [facility] on[facility] Lab: detection Screen [address], by [place] screening method Urine High Opiate suspect nondetected Final Pat hologists' methadone ,urine positive Regio nal Lab: detection Screen [address], by [place] screening method Urine Oxycod none nondetected Final Path ologists' methadone one,uri detected [facility] on[facility] Lab: detection ne [address], by Screen [place] screening method Urine Phenyc none nondetected Final Path ologists' methadone yclidin detected [facility] on[facility] Lab: detection e,urine [address], by Screen [place] screening method Urine Methad none nondetected Final Path ologists' methadone one,uri detected [facility] onal Lab: detection ne [address], by Screen [place] screening method Urine Result Pathologi sts' methadone s Regiona l Lab: detection [address], by [place] screening method 06/18/2020 Lipid High Choles 230 mg/dL <200 mg/dL Final Pathologists' Panel, terol Regional L ab: Blood [address] , [place] High Trigly 294 mg/dL <150 mg/dL Final Pa thologists' cerides Regional Lab: [address] , [place] Low HDL 34 mg/dL >40 mg/dL Final Patho logists' Cholest Regional Lab: francisco [address] , [place] High LDL,ca 138 mg/dL see chart Final Pat hologists' lculate mg/dL Regional Lab: d [address] , [place] High non-HD 196 LDL Final Pathologi sts' L target+30 Regiona l Lab: Cholest [address], [place] 06/18/2020 TSH, Serum or TSH 3.12 0.27-5.01 Final P athologists' Serum or plasma with uIU/mL uIU/mL Regional Lab: Plasma thyroid Reflex [address], stimulatin FT4 [place] g hormone (TSH) measuremen t (units/vol ume) Serum or Result Patholo gists' plasma s Regional L ab: thyroid [address], stimulatin [place] g hormone (TSH) measuremen t (units/vol ume) 06/18/2020 Opiates, Urine Opiate positive N NG/mL Final Pathologists' Quantitat opiates Confirm NG/mL Regio nal Lab: brayden, detection ation [address], Urine Paml [place] Urine Result Pathologi sts' opiates s Regional Lab: detection [address], [place] 04/16/2020 Histology Pos outpatien Final [place] Specimen t [facility]: [address], [place] Final Final [place] DX [facility]: [address] e 2, [place] Pre-op dysplasti Final Ana te DX c nevus. [facility]: [address] e 2, [place] Gross Final [place] Desc [facility]: [address] e 2, [place] 12/29/2019 Urinalysi Urine yellow Final Pat hologists' s, Color Regional L ab: Microscop [address], ic [place] Urine clear Final Pathologis ts' Appeara Regional Lab: nce [address] , [place] Specif 1.011 1.000-1.035 Final Path ologists' ic Regional L ab: Deport [address], ,urine [place] pH,uri 6.0 5.0-9.0 Final Patholog ists' ne Regional L ab: [address] , [place] Urine neg mg/dL neg mg/dL Final Path ologists' Protein Regional Lab: [address] , [place] Urine negative neg mg/dL Final Patho logists' Glucose mg/dL Regional Lab: (UA) [address] , [place] Urine neg mg/dL neg mg/dL Final Path ologists' Ketone Regional L ab: [address] , [place] Urine neg mg/dL neg mg/dL Final Path ologists' Urobili Regional Lab: nogen [address] , [place] Urine neg mg/dL neg mg/dL Final Path ologists' Bilirub Regional Lab: in [address] , [place] High Urine 0.2 mg/dL <0.03 mg/dL Final Pa thologists' Blood Regional L ab: [address] , [place] Urine neg neg Final Pathologis ts' Nitrite Regional Lab: [address] , [place] Urine neg /uL neg /uL Final Patholog ists' Leukocy Regional Lab: te [address] , Esteras [place] e High Urine 2 /hpf 0-1 /hpf Final Patholog ists' RBC Regional L ab: [address] , [place] Urine 4 /hpf 0-4 /hpf Final Patholog ists' WBC Regional L ab: [address] , [place] Urine 3 /hpf 0-4 /hpf Final Patholog ists' [place] Regional Lab: s [address] , Epithel [place] ial Cell Urine 0 /hpf 0 /hpf Final Pathologis ts' Bacteri Regional Lab: a [address] , [place] High Urine 92 /lpf 0-2 /lpf Final Patholo gists' Hyaline Regional Lab: Cast [address] , [place] High Urine many /hpf 0 /hpf Final Patholo gists' Mucus Regional L ab: [address] , [place] Add no Final Pathologis ts' Culture Regional Lab: ? [address] , [place] 11/30/2019 Urinalysi Urine yellow Final Pat hologists' s, Color Regional L ab: Microscop [address], ic [place] Urine clear Final Pathologis ts' Appe[place] Regional Lab: nce [address] , [place] Specif 1.023 1.000-1.035 Final Path ologists' ic Regional L ab: Deport [address], ,urine [place] pH,uri 5.0 5.0-9.0 Final Patholog ists' ne Regional L ab: [address] , [place] High Urine 30 mg/dL neg mg/dL Final Patho logists' Protein Regional Lab: [address] , [place] Urine negative neg mg/dL Final Patho logists' Glucose mg/dL Regional Lab: (UA) [address] , [place] Urine neg mg/dL neg mg/dL Final Path ologists' Ketone Regional L ab: [address] , [place] Urine neg mg/dL neg mg/dL Final Path ologists' Urobili Regional Lab: nogen [address] , [place] Urine neg mg/dL neg mg/dL Final Path ologists' Bilirub Regional Lab: in [address] , [place] High Urine 0.2 mg/dL <0.03 mg/dL Final Pa thologists' Blood Regional L ab: [address] , [place] Urine neg neg Final Pathologis ts' Nitrite Regional Lab: [address] , [place] Urine neg /uL neg /uL Final Patholog ists' Leukocy Regional Lab: te [address] , Esteras [place] e High Urine 11 /hpf 0-1 /hpf Final Patholo gists' RBC Regional L ab: [address] , [place] High Urine 6 /hpf 0-4 /hpf Final Patholog ists' WBC Regional L ab: [address] , [place] Urine 2 /hpf 0-4 /hpf Final Patholog ists' [place] Regional Lab: s [address] , Epithel [place] ial Cell Urine < 1 /hpf 0-2 /hpf Final Pathol ogists' Transit Regional Lab: ional [address] , Epi [place] Cells Urine 0 /hpf 0 /hpf Final Pathologis ts' Bacteri Regional Lab: a [address] , [place] High Urine 165 /lpf 0-2 /lpf Final Pathol ogists' Hyaline Regional Lab: Cast [address] , [place] High Urine many /hpf 0 /hpf Final Patholo gists' Mucus Regional L ab: [address] , [place] Add no Final Pathologis ts' Culture Regional Lab: ? [address] , [place] 11/14/2019 Urinalysi Urine yellow Final Pat hologists' s, Color Regional L ab: Microscop [address], ic [place] Urine clear Final Pathologis ts' [place] Regional Lab: nce [address] , [place] Specif 1.019 1.000-1.035 Final Path ologists' ic Regional L ab: Deport [address], ,urine [place] pH,uri 5.0 5.0-9.0 Final Patholog ists' ne Regional L ab: [address] , [place] Urine neg mg/dL neg mg/dL Final Path ologists' Protein Regional Lab: [address] , [place] Urine negative neg mg/dL Final Patho logists' Glucose mg/dL Regional Lab: (UA) [address] , [place] Urine neg mg/dL neg mg/dL Final Path ologists' Ketone [facility] L ab: [address] , [place] Urine neg mg/dL neg mg/dL Final Path ologists' Urobili Regional Lab: nogen [address] , [place] Urine neg mg/dL neg mg/dL Final Path ologists' Bilirub Regional Lab: in [address] , [place] High Urine 0.2 mg/dL <0.03 mg/dL Final Pa thologists' Blood Regional L ab: [address] , [place] Urine neg neg Final Pathologis ts' Nitrite Regional Lab: [address] , [place] Urine neg /uL neg /uL Final Patholog ists' Leukocy Regional Lab: te [address] , [place] e High Urine 5 /hpf 0-1 /hpf Final Patholog ists' RBC Regional L ab: [address] , [place] Urine 4 /hpf 0-4 /hpf Final Patholog ists' WBC Regional L ab: [address] , [place] Urine 1 /hpf 0-4 /hpf Final Patholog ists' [place] [facility] Lab: s [address] , Epithel [place] ial Cell Urine 0 /hpf 0 /hpf Final Pathologis ts' Bacteri Regional Lab: a [address] , [place] High Urine 8 /lpf 0-2 /lpf Final Patholog ists' Hyaline Regional Lab: Cast [address] , [place] Urine mod /hpf 0 /hpf Final Patholog ists' Mucus Regional L ab: [address] , [place] Add no Final Pathologis ts' Culture Regional Lab: ? [address] , [place] 11/14/2019 CBC W/ Automated Wbc 6.9 K/mcL 4.5-11.0 Final Pathologists' Auto Diff blood K/mcL Regiona l Lab: basophil [address], count [place] (number/vo lume) Automated Rbc 4.37 4.00-5.20 Final Path ologists' blood M/mcL M/mcL Regional L ab: basophil [address], count [place] (number/vo lume) Automated Hemogl 13.5 g/dL 12.0-15.0 Final Pathologists' blood obin g/dL Regional L ab: basophil [address], count [place] (number/vo lume) Automated Hemato 41.2 % 36.0-48.0 % Final P athologists' blood crit Regional L ab: basophil [address], count [place] (number/vo lume) Automated Mean 94.1 fL 80.0-100.0 Final Pa thologists' blood Cell fL Regional L ab: basophil Volume [address], count [place] (number/vo lume) Automated Mean 30.9 pg 26.0-34.0 pg Final Pathologists' blood Corpusc Regional Lab: basophil ular [address], count Hemoglo [place] (number/vo bin lume) Automated Mean 32.8 g/dL 31.0-36.0 Final P athologists' blood Corpusc g/dL Regional Lab: basophil ular [address], count HGB [place] (number/vo Conc lume) Automated Red 14.2 % 11.5-14.5 % Final Pa thologists' blood Cell Regional L ab: basophil Distrib [address], count ution [place] (number/vo Width lume) Automated Platel 393 K/mcL 140-440 Final Pa thologists' blood et K/mcL Regional L ab: basophil Count [address], count [place] (number/vo lume) Automated Mean 8.3 fL 7.4-10.4 fL Final Pa thologists' blood Platele Regional Lab: basophil t [address], count Volume [place] (number/vo lume) Automated Gran % 53.2 % 38.0-78.0 % Final P athologists' blood Regional L ab: basophil [address], count [place] (number/vo lume) Automated Lymph 38.3 % 15.5-49.0 % Final Pa thologists' blood % Regional L ab: basophil [address], count [place] (number/vo lume) Automated [place] % 4.6 % 1.0-12.0 % Final Pa thologists' blood Regional L ab: basophil [address], count [place] (number/vo lume) Automated Eos % 3.3 % 0.0-7.0 % Final Path ologists' blood Regional L ab: basophil [address], count [place] (number/vo lume) Automated Baso % 0.6 % 0.0-2.0 % Final Pat hologists' blood Regional L ab: basophil [address], count [place] (number/vo lume) Automated Gran # 3.7 K/mcL 1.8-8.0 Final Pa thologists' blood K/mcL Regional L ab: basophil [address], count [place] (number/vo lume) Automated Lymph 2.6 K/mcL 1.5-4.8 Final Pat hologists' blood # K/mcL Regional L ab: basophil [address], count [place] (number/vo lume) Automated [place] # 0.3 K/mcL 0.1-0.9 Final Pa thologists' blood K/mcL Regional L ab: basophil [address], count [place] (number/vo lume) Automated Eos # 0.2 K/mcL 0.0-0.7 Final Pat hologists' blood K/mcL Regional L ab: basophil [address], count [place] (number/vo lume) Automated Baso # 0.0 K/mcL 0.0-0.3 Final Pa thologists' blood K/mcL Regional L ab: basophil [address], count [place] (number/vo lume) 11/14/2019 CMP, Glucos 99 mg/dL 70-105 mg/dL Lesli l Pathologists' Serum or e,rando Regiona l Lab: Plasma m [address] , [place] Low Blood 5 mg/dL 6-20 mg/dL Final Patho logists' Urea Regional L ab: Nitroge [address], n [place] Creati 0.8 mg/dL 0.6-1.1 Final Patho logists' nine mg/dL Regional L ab: [address] , [place] Sodium 136 133-145 Final Patholog ists' mmol/L mmol/L Regional L ab: [address] , [place] Potass 4.2 3.3-5.1 Final Patholog ists' ium mmol/L mmol/L Regional L ab: [address] , [place] Chlori 98 mmol/L 96-108 Final Pathol ogists' de mmol/L Regional L ab: [address] , [place] Carbon 26 mmol/L 22-30 mmol/L Final Pathologists' Dioxide Regional Lab: [address] , [place] Anion 12.0 8-16 Final Pathologis ts' Gap [facility] L ab: [address] , [place] Calciu 9.4 mg/dL 8.6-10.4 Final Path ologists' m mg/dL Regional L ab: [address] , [place] Total 7.0 gm/dL 5.9-8.4 Final Pathol ogists' Protein gm/dL Regional Lab: [address] , [place] Albumi 4.1 gm/dL 3.2-5.2 Final Patho logists' n gm/dL Regional L ab: [address] , [place] Globul 2.9 gm/dL 2.2-3.7 Final Patho logists' in gm/dL Regional L ab: [address] , [place] Alb/gl 1.4 1.0-2.3 Final Patholog ists' ob Regional L ab: Ratio [address] , [place] Biliru < 0.2 0.0-1.0 Final Patholog ists' bin,tot mg/dL mg/dL Regional Lab: al [address] , [place] AST/SG 20 U/l 0-37 U/l Final Patholo gists' OT Regional L ab: [address] , [place] ALT/SG 6 U/l 0-40 U/l Final Patholo gists' PT Regional L ab: [address] , [place] Low Alkali 28 U/L 39-117 U/L Final Patho logists' ne Regional L ab: Phospha [address], tase [place] Glomer 84 Final Pathologi sts' ular Regional L ab: Filtrat [address], ion [place] Rate 11/14/2019 Lipid High Choles 312 mg/dL <200 mg/dL Final Pathologists' Panel, terol Regional L ab: Blood [address] , [place] High Trigly 640 mg/dL <150 mg/dL Final Pa thologists' cerides Regional Lab: [address] , [place] Low HDL 30 mg/dL >40 mg/dL Final Patho logists' Cholest Regional Lab: francisco [address] , [place] LDL,ca tnp mg/dL see chart Final Pat hologists' lculate mg/dL Regional Lab: d [address] , [place] High non-HD 282 LDL Final Pathologi sts' L target+30 Regiona l Lab: Cholest [address], [place] 11/14/2019 TSH, Serum or High Thyroi 7.36 0.27-5.01 Final Pathologists' Serum or plasma d uIU/mL uIU/mL Regional Lab: Plasma thyroid Stimula [address], stimulatin ting Anamt on g hormone Hormone (TSH) measuremen t Serum or Result Patholo gists' plasma s Regional L ab: thyroid [address], stimulatin [place] on g hormone (TSH) measuremen t 11/14/2019 Cytology Qa agree Final Luan mclaughlin Agree/d Family isagree Medicine [facility]: [address], [place] Specim satisfact Final Ana te en ory, no Family Adequac endocervi Medici ne - y jacy [place]: [address], present [place] Commen specimen Final Tristat e t submitted Family for HPV Medicine - testing. [place] : [address], [place] ABNORM Genera epithelia Final Ana te AL l l cell Family Categor abnormali Medici ne - ization ty [place]: [address], [place] ABNORM Screen atypical Final Tristat e AL ing squamous Family Test cells of Medicine - Interpr undetermi [facility] on: [address], significa Lew[place] n nce Manager Care HPV test Final Tristat e al if ASCUS: Family Comment yes Medicine - [place]: [address], [place] 11/14/2019 HPV DNA, ENDOCERVIX Result Pathologists' High-risk s Regiona l Lab: [address] , [place] 05/26/2019 B-hem THROAT Result Patho logists' Strep Ql s Regional Lab: Cult [address] , [place] 05/16/2019 Urinalysi Urine yellow Final Pat hologists' s, Color Regional L ab: Microscop [address], ic [place] Urine clear Final Pathologis ts' Appeara Regional Lab: nce [address] , [place] Specif 1.019 1.000-1.035 Final Path ologists' ic Regional L ab: Deport [address], ,urine [place] pH,uri 5.0 5.0-9.0 Final Patholog ists' ne Regional L ab: [address] , [place] Urine neg mg/dL neg mg/dL Final Path ologists' Protein Regional Lab: [address] , [place] Urine negative neg mg/dL Final Patho logists' Glucose mg/dL Regional Lab: (UA) [address] , [place] Urine neg mg/dL neg mg/dL Final Path ologists' Ketone Regional L ab: [address] , [place] Urine neg mg/dL neg mg/dL Final Path ologists' Urobili Regional Lab: nogen [address] , [place] Urine neg mg/dL neg mg/dL Final Path ologists' Bilirub Regional Lab: in [address] , [place] Urine neg mg/dL <0.03 mg/dL Final Pa thologists' Blood Regional L ab: [address] , [place] Urine neg neg Final Pathologis ts' Nitrite Regional Lab: [address] , [place] Urine neg /uL neg /uL Final Patholog ists' Leukocy Regional Lab: te [address] , [place] High Urine 3 /hpf 0-1 /hpf Final Patholog ists' RBC Regional L ab: [address] , [place] Urine 3 /hpf 0-4 /hpf Final Patholog ists' WBC Regional L ab: [address] , [place] High Urine 6 /hpf 0-4 /hpf Final Patholog ists' [place] Regional Lab: s [address] , Epithel [place] ial Cell Urine < 1 /hpf 0-2 /hpf Final Pathol ogists' Transit Regional Lab: ional [address] , Epi [place] Cells Urine 0 /hpf 0 /hpf Final Pathologis ts' Bacteri Regional Lab: a [address] , [place] Urine mod /hpf 0 /hpf Final Patholog ists' Mucus Regional L ab: [address] , [place] Add no Final Pathologis ts' Culture Regional Lab: ? [address] , [place] 05/16/2019 CBC W/ Automated Wbc 6.3 K/mcL 4.5-11.0 Final Pathologists' Auto Diff blood K/mcL Regiona l Lab: basophil [address], count [place] (number/vo lume) Automated Rbc 4.20 4.00-5.20 Final Path ologists' blood M/mcL M/mcL Regional L ab: basophil [address], count [place] (number/vo lume) Automated Hemogl 12.8 g/dL 12.0-15.0 Final Pathologists' blood obin g/dL Regional L ab: basophil [address], count [place] (number/vo lume) Automated Hemato 38.8 % 36.0-48.0 % Final P athologists' blood crit Regional L ab: basophil [address], count [place] (number/vo lume) Automated Mean 92.3 fL 80.0-100.0 Final Pa thologists' blood Cell fL Regional L ab: basophil Volume [address], count [place] (number/vo lume) Automated Mean 30.4 pg 26.0-34.0 pg Final Pathologists' blood Corpusc Regional Lab: basophil ular [address], count Hemoglo [place] (number/vo bin lume) Automated Mean 32.9 g/dL 31.0-36.0 Final P athologists' blood Corpusc g/dL Regional Lab: basophil ular [address], count HGB [place] (number/vo Conc lume) Automated Red 14.5 % 11.5-14.5 % Final Pa thologists' blood Cell Regional L ab: basophil Distrib [address], count ution [place] (number/vo Width lume) Automated Platel 245 K/mcL 140-440 Final Pa thologists' blood et K/mcL Regional L ab: basophil Count [address], count [place] (number/vo lume) Automated Mean 9.6 fL 7.4-10.4 fL Final Pa thologists' blood Platele Regional Lab: basophil t [address], count Volume [place] (number/vo lume) Automated Gran % 51.4 % 38.0-78.0 % Final P athologists' blood Regional L ab: basophil [address], count [place] (number/vo lume) Automated Lymph 37.5 % 15.5-49.0 % Final Pa thologists' blood % Regional L ab: basophil [address], count [place] (number/vo lume) Automated [place] % 5.3 % 1.0-12.0 % Final Pa thologists' blood Regional L ab: basophil [address], count [place] (number/vo lume) Automated Eos % 5.3 % 0.0-7.0 % Final Path ologists' blood Regional L ab: basophil [address], count [place] (number/vo lume) Automated Baso % 0.5 % 0.0-2.0 % Final Pat hologists' blood Regional L ab: basophil [address], count [place] (number/vo lume) Automated Gran # 3.3 K/mcL 1.8-8.0 Final Pa thologists' blood K/mcL Regional L ab: basophil [address], count [place] (number/vo lume) Automated Lymph 2.4 K/mcL 1.5-4.8 Final Pat hologists' blood # K/mcL Regional L ab: basophil [address], count [place] (number/vo lume) Automated [place] # 0.3 K/mcL 0.1-0.9 Final Pa thologists' blood K/mcL Regional L ab: basophil [address], count [place] (number/vo lume) Automated Eos # 0.3 K/mcL 0.0-0.7 Final Pat hologists' blood K/mcL Regional L ab: basophil [address], count [place] (number/vo lume) Automated Baso # 0.0 K/mcL 0.0-0.3 Final Pa thologists' blood K/mcL Regional L ab: basophil [address], count [place] (number/vo lume) 05/16/2019 CMP, Glucos 100 mg/dL 70-105 mg/dL Fin al Pathologists' Serum or e,rando Regiona l Lab: Plasma m [address] , [place] Blood 9 mg/dL 6-20 mg/dL Final Patho logists' Urea Regional L ab: Nitroge [address], n [place] Creati 0.8 mg/dL 0.6-1.1 Final Patho logists' nine mg/dL Regional L ab: [address] , [place] Sodium 139 133-145 Final Patholog ists' mmol/L mmol/L Regional L ab: [address] , [place] Potass 3.8 3.3-5.1 Final Patholog ists' ium mmol/L mmol/L Regional L ab: [address] , [place] Chlori 102 96-108 Final Pathologi sts' de mmol/L mmol/L Regional L ab: [address] , [place] Carbon 25 mmol/L 22-30 mmol/L Final Pathologists' Dioxide Regional Lab: [address] , [place] Anion 12.0 8-16 Final Pathologis ts' Gap Regional L ab: [address] , [place] Calciu 8.8 mg/dL 8.6-10.4 Final Path ologists' m mg/dL Regional L ab: [address] , [place] Total 6.5 gm/dL 5.9-8.4 Final Pathol ogists' Protein gm/dL Regional Lab: [address] , [place] Albumi 3.8 gm/dL 3.2-5.2 Final Patho logists' n gm/dL Regional L ab: [address] , [place] Globul 2.7 gm/dL 2.2-3.7 Final Patho logists' in gm/dL Regional L ab: [address] , [place] Alb/gl 1.4 1.0-2.3 Final Patholog ists' ob Regional L ab: Ratio [address] , [place] Biliru < 0.2 0.0-1.0 Final Patholog ists' bin,tot mg/dL mg/dL Regional Lab: al [address] , [place] AST/SG 15 U/l 0-37 U/l Final Patholo gists' OT Regional L ab: [address] , [place] ALT/SG 8 U/l 0-40 U/l Final Patholo gists' PT Regional L ab: [address] , [place] Alkali 45 U/L 39-117 U/L Final Patho logists' ne Regional L ab: Phospha [address], tase [place] Glomer 85 Final Pathologi sts' ular Regional L ab: Filtrat [address], ion [place] Rate 05/16/2019 Amylase, Amylas 35 U/L 28-100 U/L Final Pathologists' Serum or e Regional Lab: Plasma [address] , [place] 05/16/2019 Lipase, Serum or Lipase 20 U/L 7-60 U/L Final Pathologists' Serum or plasma Regional Lab: Plasma lipase [address] , measuremen [place] on t (enzymatic activity/v olume) 05/16/2019 [place], Serum or Lithiu < 0.1 Final P athologists' Serum plasma m Test mmol/L Regional L ab: lithium [address], measuremen [place] on t (moles/vol ume) Serum or Result Patholo gists' plasma s Regional L ab: lithium [address], measuremen [place] on t (moles/vol ume) 12/24/2018 TSH, Serum or TSH 3.62 0.27-5.01 Final P athologists' Serum or plasma with uIU/mL uIU/mL Regional Lab: Plasma thyroid Reflex [address], stimulatin FT4 [place] on g hormone (TSH) measuremen t (units/vol ume) Serum or Result Patholo gists' plasma s Regional L ab: thyroid [address], stimulatin [place] g hormone (TSH) measuremen t (units/vol ume) 10/26/2018 Drug Urine Amphet none nondetected Final Pathologists' Screen, methadone amine,u detected Reg ional Lab: Urine detection rine [address], by Screen [place] screening method Urine Barbit none nondetected Final Path ologists' methadone urates, detected Karine onal Lab: detection Urine [address], by Screen [place] screening method Urine Benzod none nondetected Final Path ologists' methadone iazepin detected Karine onal Lab: detection es,urin [address], by e,scree [place] screening n method Urine Cannab none nondetected Final Path ologists' methadone inoid,u detected Karine onal Lab: detection rine [address], by Screen [place] screening method Urine Cocain none nondetected Final Path ologists' methadone e,urine detected Karine onal Lab: detection Screen [address], by [place] screening method Urine Opiate none nondetected Final Path ologists' methadone ,urine detected Regio nal Lab: detection Screen [address], by [place] screening method Urine High Oxycod suspect nondetected Final Pat hologists' methadone one,uri positive Karine onal Lab: detection ne [address], by Screen [place] screening method Urine Phenyc none nondetected Final Path ologists' methadone yclidin detected [place]ine onal Lab: detection e,urine [address], by Screen [place] screening method Urine Methad none nondetected Final Path ologists' methadone one,uri detected Karine onal Lab: detection ne [address], by Screen [place] screening method Urine Result Pathologi sts' methadone s Regiona l Lab: detection [address], by [place] screening method 10/26/2018 Opiates, Urine Opiate positive N NG/mL Final Pathologists' Quantitat opiates Confirm NG/mL Regio nal Lab: brayden, detection ation [address], Urine Paml [place] Urine Result Pathologi sts' opiates s Regional Lab: detection [address], [place] 09/27/2018 CBC W/ Automated Wbc 5.3 K/mcL 4.5-11.0 Final Pathologists' Auto Diff blood K/mcL Regiona l Lab: basophil [address], count [place] (number/vo lume) Automated Rbc 4.06 4.00-5.20 Final Path ologists' blood M/mcL M/mcL Regional L ab: basophil [address], count [place] (number/vo lume) Automated Hemogl 12.6 g/dL 12.0-15.0 Final Pathologists' blood obin g/dL Regional L ab: basophil [address], count [place] (number/vo lume) Automated Hemato 37.9 % 36.0-48.0 % Final P athologists' blood crit Regional L ab: basophil [address], count [place] (number/vo lume) Automated Mean 93.3 fL 80.0-100.0 Final Pa thologists' blood Cell fL Regional L ab: basophil Volume [address], count [place] (number/vo lume) Automated Mean 31.2 pg 26.0-34.0 pg Final Pathologists' blood Corpusc Regional Lab: basophil ular [address], count Hemoglo [place] (number/vo bin lume) Automated Mean 33.4 g/dL 31.0-36.0 Final P athologists' blood Corpusc g/dL Regional Lab: basophil ular [address], count HGB [place] (number/vo Conc lume) Automated Red 14.0 % 11.5-14.5 % Final Pa thologists' blood Cell Regional L ab: basophil Distrib [address], count ution [place] (number/vo Width lume) Automated Platel 279 K/mcL 140-440 Final Pa thologists' blood et K/mcL Regional L ab: basophil Count [address], count [place] (number/vo lume) Automated Mean 9.4 fL 7.4-10.4 fL Final Pa thologists' blood Platele Regional Lab: basophil t [address], count Volume [place] (number/vo lume) Automated Gran % 43.3 % 38.0-78.0 % Final P athologists' blood Regional L ab: basophil [address], count [place] (number/vo lume) Automated Lymph 46.3 % 15.5-49.0 % Final Pa thologists' blood % Regional L ab: basophil [address], count [place] (number/vo lume) Automated [place] % 6.0 % 1.0-12.0 % Final Pa thologists' blood Regional L ab: basophil [address], count [place] (number/vo lume) Automated Eos % 3.6 % 0.0-7.0 % Final Path ologists' blood Regional L ab: basophil [address], count [place] (number/vo lume) Automated Baso % 0.8 % 0.0-2.0 % Final Pat hologists' blood Regional L ab: basophil [address], count [place] (number/vo lume) Automated Gran # 2.3 K/mcL 1.8-8.0 Final Pa thologists' blood K/mcL Regional L ab: basophil [address], count [place] (number/vo lume) Automated Lymph 2.5 K/mcL 1.5-4.8 Final Pat hologists' blood # K/mcL Regional L ab: basophil [address], count [place] (number/vo lume) Automated [place] # 0.3 K/mcL 0.1-0.9 Final Pa thologists' blood K/mcL Regional L ab: basophil [address], count [place] (number/vo lume) Automated Eos # 0.2 K/mcL 0.0-0.7 Final Pat hologists' blood K/mcL Regional L ab: basophil [address], count [place] (number/vo lume) Automated Baso # 0.0 K/mcL 0.0-0.3 Final Pa thologists' blood K/mcL Regional L ab: basophil [address], count [place] (number/vo lume) 09/27/2018 CMP, Glucos 102 mg/dL 70-105 mg/dL Fin al Pathologists' Serum or e,rando Regiona l Lab: Plasma m [address] , [place] Blood 8 mg/dL 6-20 mg/dL Final Patho logists' Urea Regional L ab: Nitroge [address], n [place] Creati 0.6 mg/dL 0.6-1.1 Final Patho logists' nine mg/dL Regional L ab: [address] , [place] Sodium 140 133-145 Final Patholog ists' mmol/L mmol/L Regional L ab: [address] , [place] Potass 3.5 3.3-5.1 Final Patholog ists' ium mmol/L mmol/L Regional L ab: [address] , [place] Chlori 104 96-108 Final Pathologi sts' de mmol/L mmol/L Regional L ab: [address] , [place] Carbon 27 mmol/L 22-30 mmol/L Final Pathologists' Dioxide Regional Lab: [address] , [place] Anion 9.0 8-16 Final Pathologis ts' Gap Regional L ab: [address] , [place] Calciu 9.4 mg/dL 8.6-10.4 Final Path ologists' m mg/dL Regional L ab: [address] , [place] Total 6.4 gm/dL 5.9-8.4 Final Pathol ogists' Protein gm/dL Regional Lab: [address] , [place] Albumi 3.9 gm/dL 3.2-5.2 Final Patho logists' n gm/dL Regional L ab: [address] , [place] Globul 2.5 gm/dL 2.2-3.7 Final Patho logists' in gm/dL Regional L ab: [address] , [place] Alb/gl 1.6 1.0-2.3 Final Patholog ists' ob Regional L ab: Ratio [address] , [place] Biliru 0.2 mg/dL 0.0-1.0 Final Patho logists' bin,tot mg/dL Regional Lab: al [address] , [place] AST/SG 13 U/l 0-37 U/l Final Patholo gists' OT Regional L ab: [address] , [place] ALT/SG 8 U/l 0-40 U/l Final Patholo gists' PT Regional L ab: [address] , [place] Low Alkali 30 U/L 39-117 U/L Final Patho logists' ne Regional L ab: Phospha [address], tase [place] Glomer 106 Final Pathologi sts' ular Regional L ab: Filtrat [address], ion [place] Rate 09/27/2018 Lipid High Choles 294 mg/dL <200 mg/dL Final Pathologists' Panel, terol Regional L ab: Blood [address] , [place] High Trigly 220 mg/dL <150 mg/dL Final Pa thologists' cerides Regional Lab: [address] , [place] HDL 46 mg/dL >40 mg/dL Final Patho logists' Cholest Regional Lab: francisco [address] , [place] High LDL,ca 205 mg/dL see chart Final Pat hologists' lculate mg/dL Regional Lab: d [address] , [place] High non-HD 248 LDL Final Pathologi sts' L target+30 Regiona l Lab: Cholest [address], [place] 09/27/2018 TSH, Serum or Low TSH 0.24 0.27-5.01 Final P athologists' Serum or plasma with uIU/mL uIU/mL Regional Lab: Plasma thyroid Reflex [address], stimulatin FT4 [place] on g hormone (TSH) measuremen t (units/vol ume) 09/27/2018 T4, Free, Free 0.97 0.7-1.7 Final Pa thologists' Serum T4 NG/dL NG/dL Regional L ab: Reflex [address] , Test [place] 09/27/2018 Urinalysi Urine yellow Final Pat hologists' s, Color Regional L ab: Microscop [address], ic [place] Urine hazy Final Pathologis ts' [place] Regional Lab: nce [address] , [place] Specif 1.023 1.000-1.035 Final Path ologists' ic Regional L ab: Deport [address], ,urine [place] pH,uri 5.0 5.0-9.0 Final Patholog ists' ne Regional L ab: [address] , [place] Urine neg mg/dL neg mg/dL Final Path ologists' Protein Regional Lab: [address] , [place] Urine negative neg mg/dL Final Patho logists' Glucose mg/dL Regional Lab: (UA) [address] , [place] Urine neg mg/dL neg mg/dL Final Path ologists' Ketone Regional L ab: [address] , [place] Urine neg mg/dL neg mg/dL Final Path ologists' Urobili Regional Lab: nogen [address] , [place] Urine neg mg/dL neg mg/dL Final Path ologists' Bilirub Regional Lab: in [address] , [place] High Urine 0.2 mg/dL <0.03 mg/dL Final Pa thologists' Blood Regional L ab: [address] , [place] Urine neg neg Final Pathologis ts' Nitrite Regional Lab: [address] , [place] Urine neg /uL neg /uL Final Patholog ists' Leukocy Regional Lab: te [address] , Esteras [place] e High Urine 2 /hpf 0-1 /hpf Final Patholog ists' RBC Regional L ab: [address] , [place] Urine 3 /hpf 0-4 /hpf Final Patholog ists' WBC Regional L ab: [address] , [place] Urine 1 /hpf 0-4 /hpf Final Patholog ists' [place] Regional Lab: s [address] , Epithel [place] ial Cell Urine 0 /hpf 0 /hpf Final Pathologis ts' Bacteri Regional Lab: a [address] [facility] , [place] High Urine many /hpf 0 /hpf Final Patholo gists' Calcium Regional Lab: Oxalate [address], Crystal [place] Urine 24 /lpf 0-2 /lpf Final Patholo gists' [facility]: Cast [address] [facility] , [place] High Urine many /hpf 0 /hpf Final Patholo gists' M[facility]us [facility]: [address] [facility] , [place] Add no Final Pathologis ts' [facility]: ? [address] [facility] , [place] Past Encounters 07/30/2022 Preoperative Cardiovascular Examination; Premature Atrial Contraction; Coronary Arteriosclerosis; Mixed Hyperlipidemia Samir Palomino MD: [address] [place] [address] , [place] [id number], Ph. 07/17/2022 Lesion of Spleen; History of non-Hodgkin s Lymphoma Shakila Kwan SECURITY PROFESSIONALS: [address] [facility] [place] [address], Ph. 07/03/2022 Dysfunction of Eustachian Tube; Lymphade nopathy Shakila Kwan SECURITY PROFESSIONALS: [address] [facility] [place] [address], Ph. 06/17/2022 Hernia of Anterior Abdominal Wall Shakila Kwan SECURITY PROFESSIONALS: [address] [facility] [place] [address], Ph. 05/20/2022 Superficial Thrombophlebitis Shakila Kwan SECURITY PROFESSIONALS: [address] [facility] [place] [address], Ph. 05/05/2022 Phlebitis Shakila Kwan SECURITY PROFESSIONALS: [address] [facility] [place] [address], Ph. 04/16/2022 Postural Dizziness; Nausea and Vomiting; Bradycardia; Second Degree Atrioventricular Block Shakila Kwan SECURITY PROFESSIONALS: [address] [place] [address], Ph. 03/04/2022 Persistent Insomnia; Chronic Depression; Unexplained Weight Loss; Fatigue Shakila Kwan SECURITY PROFESSIONALS: [address] [place] [address], Ph. 02/19/2022 Persistent Insomnia; Chronic Depression; Osteoporosis; Long-term Current Use of Opiate Analgesic Drug; Unexplained Weight Loss Shakila Kwan SECURITY PROFESSIONALS: [address] [place] [address], Ph. 02/11/2022 Osteoporosis; Bipolar Disorder Shakila Kwan SECURITY PROFESSIONALS: [address] [place] [address], Ph. 11/13/2021 History of non-Hodgkins Lymphoma; Diffic ulty Swallowing Food; Gastroesophageal Reflux Disease; Unexplained Weight Loss; Fatigue; Neuropathic Pain Shakila Kwan SECURITY PROFESSIONALS: [address] [place] [address], Ph. 11/05/2021 Difficulty Swallowing Food; History of n on-Hodgkins Lymphoma; Unexplained Weight Loss Shakila Kwan SECURITY PROFESSIONALS: [address] [place] [address], Ph. 08/06/2021 Osteoporosis; Chronic Obstructive Lung D isease; History of Pulmonary Embolus; Neuropathic Pain; History of non-Hodgkins Lymphoma; History of Malignant Neoplasm of Uterine Body; History of Malignant Neop lasm of Cervix; Bipolar Disorder; Chroni c Depression; Hypothyroidism; Mixed Hyperlipidemia; Mammographic Mass of Left Breast; Screening Mammography; Insomnia; Abdominal Pain; Costal Chondritis Shakila Kwan SECURITY PROFESSIONALS: [address] [address], [place] [address], Ph. 06/10/2021 Neuropathic Pain; Tobacco Dependence Syn drome; Chronic Obstructive Lung Disease Shakila Kwan SECURITY PROFESSIONALS: [address] [address], [place] [address], Ph. Social History Tobacco Smoking Status Light Tobacco Smoker (1/4 pack per da y) Vaccine List Vaccine Type COVID-19 (SARS-COV-2) vaccine, unspecifi ed 12/31/2020 01/28/2021 influenza, injectable, quadrivalent, pre servative free 09/27/20180.5 mL 09/12/20190.5 mL 10.5 mL Tdap 09/27/20180.5 mL Plan of Care Reminders Provider Appointments None recorded. Lab None recorded. Referral None recorded. Procedures None recorded. Surgeries None recorded. Imaging None recorded. Vitals 07/30/2022 11:30AM CARDIO- NEW PATIENT Height Weight BMI Blood Pressure 5 ft 6.5 in 109 lbs 17.3 kg/m2 110/63 mm[Hg] 07/17/2022 04:00PM Established Patient 45 Height Weight BMI Blood Pressure 5 ft 6.5 in 112 lbs 17.8 kg/m2 100/60 mm[Hg] 07/03/2022 04:15PM Established Patient 30 Height Weight BMI Blood Pressure 5 ft 6.5 in 113 lbs 18 kg/m2 102/60 mm[Hg] 06/17/2022 03:30PM Established Patient 30 Height Weight BMI Blood Pressure 5 ft 6.5 in 111.2 lbs 17.7 kg/m2 114/62 mm[Hg] 05/20/2022 02:45PM Established Patient 30 Height Weight BMI Blood Pressure 5 ft 6.5 in 113.4 lbs 18 kg/m2 128/64 mm[Hg] 05/05/2022 02:45PM Established Patient 30 Height Weight BMI Blood Pressure 5 ft 6.5 in 112/58 mm[Hg] 04/16/2022 03:30PM Established Patient 30 Height Weight BMI Blood Pressure 5 ft 6.5 in 113 lbs 18 kg/m2 114/86 mm[Hg] 03/04/2022 04:15PM Established Patient 30 Height Weight BMI Blood Pressure 5 ft 6.5 in 112.4 lbs 17.9 kg/m2 112/90 mm[Hg] 02/19/2022 04:15PM Established Patient 30 Height Weight BMI Blood Pressure 5 ft 6.5 in 111.8 lbs 17.8 kg/m2 102/80 mm[Hg] 02/11/2022 04:00PM Nurse Visit Height Weight BMI 5 ft 6.5 in 110.6 lbs 17.6 kg/m2 11/13/2021 03:30PM Established Patient 15 Height Weight BMI Blood Pressure 5 ft 6.5 in 111.6 lbs 17.7 kg/m2 104/64 mm[Hg] 11/05/2021 04:30PM Established Patient 30 Height Weight BMI Blood Pressure 5 ft 6.5 in 117 lbs 18.6 kg/m2 106/68 mm[Hg] 08/06/2021 02:45PM Physical 45 Height Weight BMI Blood Pressure 5 ft 6.5 in 119 lbs 18.9 kg/m2 108/60 mm[Hg] 06/10/2021 04:00PM Established Patient 30 Height Weight BMI 5 ft 6.5 in 116.6 lbs 18.5 kg/m2 01/21/2021 04:00PM Established Patient 30 Height Weight BMI Blood Pressure 5 ft 6.5 in 128 lbs 20.4 kg/m2 116/78 mm[Hg] 12/19/2020 04:00PM Established Patient 30 Height Weight BMI Blood Pressure 5 ft 6.5 in 129.7 lbs 20.6 kg/m2 98/64 mm[Hg] 06/19/2020 11:30AM Established Patient 30 Height Weight BMI Blood Pressure 5 ft 6.5 in 136 lbs 21.6 kg/m2 124/80 mm[Hg] 04/16/2020 11:00AM Procedure 45 Height Weight BMI Blood Pressure 5 ft 6.5 in 141.8 lbs 22.5 kg/m2 118/82 mm[Hg] 11/30/2019 02:00PM Established Patient 30 Height Weight BMI Blood Pressure 5 ft 6.5 in 153 lbs 24.3 kg/m2 112/80 mm[Hg] 11/14/2019 11:00AM Physical 45 Height Weight BMI 5 ft 6.5 in 153.4 lbs 24.4 kg/m2 10/20/2019 04:30PM Established Patient 30 Height Weight BMI Blood Pressure 5 ft 6.5 in 155.9 lbs 24.8 kg/m2 118/74 mm[Hg] 10/06/2019 01:30PM Established Patient 30 Height Weight BMI Blood Pressure 5 ft 6.5 in 151.6 lbs 24.1 kg/m2 128/90 mm[Hg] 09/12/2019 03:00PM Established Patient 30 Height Weight BMI Blood Pressure 5 ft 6.5 in 152.2 lbs 24.2 kg/m2 102/74 mm[Hg] 06/06/2019 02:00PM Established Patient 30 Height Weight BMI Blood Pressure 5 ft 6.5 in 154 lbs 24.5 kg/m2 110/82 mm[Hg] 05/26/2019 10:30AM Established Patient 30 Height Weight BMI Blood Pressure 5 ft 6.5 in 146.5 lbs 23.3 kg/m2 114/78 mm[Hg] 05/16/2019 02:30PM Established Patient 30 Height Weight BMI Blood Pressure 5 ft 6.5 in 156.7 lbs 24.9 kg/m2 110/76 mm[Hg] 03/23/2019 10:45AM Established Patient 30 Height Weight BMI Blood Pressure 5 ft 6.5 in 150 lbs 23.8 kg/m2 110/72 mm[Hg] 02/10/2019 03:30PM Post-Op Height Weight BMI Blood Pressure 5 ft 6.5 in 164 lbs 26.1 kg/m2 118/66 mm[Hg] 12/30/2018 11:30AM Any 30 Height Weight BMI Blood Pressure 5 ft 6.5 in 156.7 lbs 24.9 kg/m2 118/90 mm[Hg] 12/16/2018 02:15PM Any 30 Height Weight BMI Blood Pressure 5 ft 6.5 in 160 lbs 25.4 kg/m2 98/68 mm[Hg] 10/26/2018 01:30PM Any 30 Height Weight BMI Blood Pressure 5 ft 6.5 in 152.2 lbs 24.2 kg/m2 122/78 mm[Hg] 09/27/2018 09:00AM New Patient 45 Height Weight BMI Blood Pressure 5 ft 6.5 in 151.6 lbs 24.1 kg/m2 112/78 mm[Hg] 08/02/2018 03:00PM Any 30 Height Weight BMI Blood Pressure 5 ft 8 in 153 lbs 23.3 kg/m2 132/78 mm[Hg]
--- OUTSIDE RECORDS SUMMARY | 2022-07-31 14:56 | External Medical Summary | Encounter Summary ---
:1965 Author Care Team Providers Name Role Phone Shakila Crockett NP Primary Care Provider [phone] Marisa Goyal DO General Surgeon [phone] Reason for Visit 2 WK FOLLOW-UP left basilic dvt, left foot fracture Assessment and Plan 1. Superficial thrombophlebitis Patient has a history of superficial th rombophlebitis from an IV that was started when she was having foot surgery. MEDICATIONS: Clopidogrel 5 mg 1 tablet t wice daily. Patient had a venous duplex ultrasound o f her left arm on May 05, 2022. IMPRESSION: Left basilic vein DVT. The patient was s ent to the ER Patient does have a history of pulmonary embolism. Patient will on Eliquis 5 mg 1 tablets twice daily for 90 days. Patient reports today that her arm is co mpletely fine there is no problems. She has no pain no redness no swelling. Plan: Patient will continue with the demetri pidogrel 5 mg twice daily for a total of 90 days. Discussion Note: None recorded.Patient educational handouts: No information available. Plan of Care Reminders Provider Appointments Medicare Annual 08/12/2022 3:15PM Shakila Zheng, [facility] FIRST GRADE TEACHER Return to Office on or around Mónica March [facility], 07/30/2023 FIRST GRADE TEACHER Return to Office on or around 09/27/2023 Lab None recorded. Referral None recorded. Procedures None recorded. Surgeries None recorded. Imaging None recorded. Medications Name Start Date albuterol 90 mcg/actuation [...] in 113.4 lbs 18 kg/m2 128/64 mm[Hg] Results Lab Results None recorded. Allergies [...] avai lable Tonsilectomy/adenoids Information not av ailable 05/05/2022 US, Duplex, Venous, Upper Extremity [facility] [address] [place] [address] (Work Place) Vaccine List Vaccine Type COVID-19 [...] is the highest grade or level of [id number] school you have completed or the highest [...] in or have you traveled to an N area where Ebola virus transmission is active? [...] Heavy Do you feel stressed (tense, restless, [id number] nervous, or anxious, or unable to sleep [...] you have difficulty seeing?? Yes Past Encounters 05/20/2022 Superficial Thrombophlebitis Shakila Crockett FIRST GRADE TEACHER: [address] [facility] [place] [address], Ph. 05/05/2022 Phlebitis Shakila Crockett NP: [address] [facility] [place] [address], Ph. History of Present Illness Note: <div>56-year-old female in today for follow-up of her superficial thrombophlebitis.</div><div>
</div><div>Patient has a history of superficial thrombophlebitis from an IV that was started when she was having foot surgery. </div><div>MEDICATIONS: Clopidogrel 5 mg 1 tablet twice daily.</div><div>Patient had a venous duplex ultrasound of her left arm on May 05, 2022. </div><div>IMPRESSION: </div><div>Left basilic vein DVT. The patient was sent to the ER</div><div>Patient does have a history of pulmonary embolism. Patient will on Eliquis 5 mg 1 tablets twice daily for 90 days. </div><div>Pat ient reports today that her arm is completely fine there is no problems. She has no pain no redness no swelling.</div> Review of Systems Comprehensive General Adult ROS Reported By: Patient Constitutional: Constitutional: no fever, no night sweats, no significant weight gain, no significant weight loss, no exercise intolerance, no chills, no m alaise Eyes: Eyes: no dry eyes, no vision [...] heart murmur, no ankle swelling Respiratory: Respiratory: no cough, no wh eezing, no shortness of breath, no coughing up blood, no sleep apnea Gastrointestinal: Gastrointestinal: no abdomin al pain, no nausea, no vomiting, no constipation, normal appe tite, no diarrhea, not vomiting blood, no dyspepsia, no GERD Genitourinary: Genitourinary: no incontinen ce, no difficulty urinating, no hematuria, no increased freq uency Musculoskeletal: Musculoskeletal: ; left foot Integumentary: Skin: changes in hair/nails; growth right abdomen Neurologic: Neurologic: no loss of consc iousness, no weakness, no numbness, no seizures, no di zziness, no migraines, no headaches, no tremor, no gai t dysfunction, no paralysis Psychiatric: Psych: no depression, no sle ep disturbances, feeling safe in a relationship, no alcohol abu se, no anxiety, no hallucinations, no suicidal thoughts, no moo d swings, no memory loss, no agitation, no dementia, no d elirium Endocrine: Endocrine: no fatigue Hematologic/Lymphatic: Hematologic/Lymphatic no swo llen glands, no bruising, no excessive bleeding, no anemi a, no phlebitis Notes: <div><strong>PAIN ASSESSMENT </strong></div><div>1. Pain assessed rating {{0|1|2|3*|4 |5|6|7|8|9|10}}/10 using standard pain scale.</div><div>2. Int ervention for [...] to an agency {{n/a|yes|no}}</div><div>&lt ;br></div> Physical Exam Notes: <div>General appearance: No acute distress, pleasant.</div><div>Grooming: Adequate.</div><div>Orientat ion: X3</div><div>Speech: Fluent</div><div>Comprehensi on: Intact</div><div>Eye contact: Good</div><div>Mood: Good</d iv><div>Thoughts: Logical</div><div>Insight: Good</div><div>Judgment: Anando d</div><div>Recall: Good</div><div>Assessment: 20-minute [id number] inter view discussing symptoms and treatment options</div><div>No redness , swelling, or pain noted upon examination of patient's left arm.</div>"
--- OUTSIDE RECORDS SUMMARY | 2022-07-31 14:56 | External Medical Summary | Encounter Summary ---
:1965 Author Care Team Providers Name Role Phone Shakila Crockett DESIGN ENGINEERING TECHNICIAN Primary Care Provider [phone] Marisa Goyal DO General Surgeon [phone] Reason for Visit ER FOLLOW-UP Assessment and Plan Assessment Note Called and discussed patient's radiolog y report with Dr. Addison Chaves radiologist at [facility]. 1. Lesion of spleen Patient presented to [facility] 07/14/2022 for left upper quadrant pain. Patient had undergone echo, labs, abdominal pelvic CT with contrast and was found that her splenic lesion appeared to be enlarging. Patient has a history of non-Hodgkin's l ymphoma. Abdominal MRI 06/2019 IMPRESSION: Spleen has a lesion within the splenic h ilum which measures 25x25 mm in the axial plane. Previous me asurement from 10/17/16 showed a lesion at 34x27 mm. It is there fore smaller. Improving splenic lesion in size and enh ancement when compared with 10/17/16. Long-term shrinkage of the les ion does imply a benign etiology. Clinical correlation certainly is needed. MR Cholangiopancreatophraphy 03/2020 IMPRESSION: Stable lesion in the splenic hilum, unch anged over multiple examinations dating back to 2014. PET/CT 12/2021 IMPRESSION: Stable splenic lesion, not metabolically active. Spleen is normal in size. There is a 23 mm low density lesion identified in the spleen which is stable since 07/31/2021 of doubtful significance. Plan: Patient was to see Dr. Jennifer Goyal for a abdominal wall hernia will send a referral for evaluation of splenic lesion. general surgeon referral - appointmen t already scheduled for 07/31/2022 for hernia, pain most likely from splenic lesion 2. History of non-Hodgkins lymphoma 2008 Discussion Note: None recorded.Patient educational handouts: No information available. Plan of Care Reminders Provider Appointments Medicare Annual 08/12/2022 3:15PM Shakila Zheng, [facility] DESIGN ENGINEERING TECHNICIAN Return to Office on or around [facility], 07/30/2023 DESIGN ENGINEERING TECHNICIAN Return to Office on or around 09/27/2023 Lab None recorded. Referral General Surgeon 07/17/2022 Marisa Arias Referral Procedures None recorded. Surgeries None recorded. Imaging [...] in 112 lbs 17.8 kg/m2 100/60 mm[Hg] Results Lab Results None recorded. Allergies [...] avai lable Tonsilectomy/adenoids Information not av ailable Vaccine List Vaccine Type COVID-19 (SARS-COV-2) vaccine, [...] is the highest grade or level of [id number] school you have completed or the highest [...] Heavy Do you feel stressed (tense, restless, [id number] nervous, or anxious, or unable to sleep [...] you have difficulty seeing?? Yes Past Encounters 07/17/2022 Lesion of Spleen; History of non-Hodgkin s Lymphoma Shakila Crockett, DESIGN ENGINEERING TECHNICIAN: [address] [place] [address], Ph. 07/03/2022 Dysfunction of Eustachian Tube; Lymphade nopathy Shakila Crockett, DESIGN ENGINEERING TECHNICIAN: [address] [place] [address], Ph. 06/17/2022 Hernia of Anterior Abdominal Wall Shakila Crockett, DESIGN ENGINEERING TECHNICIAN: [address] [place] [address], Ph. History of Present Illness Note: <div>56-year-old female in today for follow-up of her ER visit on 07/14/2022. Patient has a long complicated history of bipolar, COPD, A. fib with a history of an SC, non-Hodgkin's lymphoma, malignant neoplasm of her cervix and uterus, pulmonary embolus.</div><div>
</div><div>Patient presented to [facility] 07/14/2022 for left upper quadrant pain. Patient had undergone echo, labs, abdominal pelvic CT with contrast and was found that her splenic lesion appeared to be enlarging.</div><div>Patient has a history of non-Hodgkin's lymphoma.</div><div>
</div><div>Abdominal MRI 06/2019</div><div>IMPRESSION: </div><div><div>Spleen has a lesion within the splenic hilum which measures</div></div><div><div>25x25 mm in the axial plane. Previous measurement from 10/17/16</div></div><div><div>showed a lesion at 34x27 mm. It is therefore smaller.</div><div><div>Improving splenic lesion in size and enhancement when compared with</div><div>
</div></div><div><div>10/17/16. Long-term shrinkage of the lesion does imply a benign</div><div>
</div></div><div><div>etiology. Clinical correlation certainly is needed.< /div><div>
</div></div><div>
</div></div><div>MR Cholangiopancreatophraphy 03/2020</div><div>IMPRESSION: </div><div&gt ;<div>Stable lesion in the splenic hilum, unchanged over multiple</div></div><di v>examinations dating back to 2014.</div><div>
</div><div>PET/CT 12/2021</div><div><div>IMPRESSION:</div></div><div>Stable splenic lesion, not metabolically active.</div><div><div>Spleen is normal in size. There is a 23 mm low density</div></div><div><div>lesion identified in the spleen which is stable since</div></div><div>07/31/2021 of doubtful significance.</div> Review of Systems Comprehensive General Adult ROS [...] blood, no sleep apnea Gastrointestinal: Gastrointestinal: no nausea, no vomiting, no constipation, normal appetite, no diarrhea , not vomiting blood, no dyspepsia, no GERD, abdomina l pain Genitourinary: Genitourinary: no incontinen ce, no difficulty urinating, no hematuria, no increased freq uency Musculoskeletal: Musculoskeletal: no muscle a ches, no muscle weakness, no arthralgias/joint pain, no b ack pain, no swelling in the extremities, no neck pain, n o difficulty walking, no cramps, no osteoporosis, no fracture s Integumentary: Skin: no abnormal mole, no j aundice, no rashes, no laceration, no non-healing areas, no lorna nges in hair/nails, no psoriasis, no change in skin color, no breast lump, growths/lesions Neurologic: Neurologic: no loss of consc iousness, [...] no dementia, no d elirium Endocrine: Endocrine: fatigue Hematologic/Lymphatic: Hematologic/Lymphatic no swo llen glands, no bruising, no excessive bleeding, no phleb itis, anemia Allergic/Immunologic: Allergy/Immunologic: no runn y nose, no sinus pressure, no itching, no hives, no freque nt sneezing Notes: <div>
</div><div>
</di v> Physical Exam Notes: <div>General appearance: No acute distress, pleasant.</div><div>Grooming: Adequate.</div><div>Orientat ion: X3</div><div>Speech: Fluent</div><div>Comprehensi on: Intact</div><div>Eye contact: Good</div><div>Mood: Good</d iv><div>Thoughts: Logical</div><div>Insight: Good</div><div>Judgment: Goo d</div><div>Recall: Good</div><div>Assessment: 20-minute [id number] inter view discussing symptoms and treatment options</div><div>
</div>
--- OUTSIDE RECORDS SUMMARY | 2022-07-31 14:56 | External Medical Summary | Encounter Summary ---
:1965 Author Care Team Providers Name Role Phone Shakila Crockett MASTER CONTROL ENGINEER Primary Care Provider [phone] Marisa Goyal DO General Surgeon [phone] Reason for Visit Lump painful lump on belly button Assessment and Plan 1. Hernia of anterior abdominal wall Patient has had abdominal wall hernia t hat is inferior and slightly to the left of her umbilicus. Patient reports she has had the hernia for several years but has noticed over the last 4 months she is several times a day. Patient denies that its "actual pain," but more of an irritation. Plan: Patient education was provided latia casa and in writing on hernia care instructions. Patient education was provided on ventral hernia medical emergency. Patient would like to have a consultation wi th the surgeon to see what it would enta il for surgery. Referral will be sent to Dr. Marisa Goyal. hernia: care instructions general surgeon referral - Please con tact patient to schedule appointment. If additional information is needed or you have any questions, please call [facility]'s Referral Department @ [phone]. Than k you Discussion Note: None recorded. Plan of Care Reminders Provider Appointments Medicare Annual 08/12/2022 3:15PM Shakila Zheng, [facility] MASTER CONTROL ENGINEER Return to Office on or around Mónica March [facility], 07/30/2023 MASTER CONTROL ENGINEER Return to Office on or around 09/27/2023 Lab None recorded. Referral General Surgeon 06/17/2022 Marisa Arias Referral Procedures None recorded. Surgeries [...] mouth at bedtime Notes: Also takes Chad, verified med ications with patient verbally. -AG 07/30 Medications Administered None recorded. Vitals Height Weight BMI Blood Pressure 5 ft 6.5 in 111.2 lbs 17.7 kg/m2 114/62 mm[Hg] Results Lab Results None recorded. Allergies [...] is the highest grade or level of [id number] school you have completed or the highest [...] Heavy Do you feel stressed (tense, restless, [id number] nervous, or anxious, or unable to sleep [...] you have difficulty seeing?? Yes Past Encounters 06/17/2022 Hernia of Anterior Abdominal Wall Shakila Crockett NP: [address] [place] [address], Ph. 05/20/2022 Superficial Thrombophlebitis Shakila Crockett NP: [address] [place] [address], Ph. History of Present Illness Note: <div>56-year-old female in today for follow-up of her abdominal wall hernia.</div><div>
</div><div>Patient has had abdominal wall hernia that is inferior and slightly to the left of her umbilicus. Patient reports she has had the hernia for several years but has noticed over the last 4 months she is several times a day. Patient denies that its "actual pain," but more of an irritation.</div> Review of Systems Comprehensive General Adult ROS [...] up blood, no sleep apnea Gastrointestinal: Gastrointestinal: abdominal pain; thinks has hernia Genitourinary: Genitourinary: no incontinen ce, no difficulty urinating, no hematuria, no increased freq uency Musculoskeletal: Musculoskeletal: muscle ache s; thinks has hernia Integumentary: Skin: ; worried about top of foot healing Neurologic: Neurologic: no loss of consc iousness, [...] you fallen in the last 30 days? {{yes|no*}}</div><d iv>2. Are you currently in a relationship where you feel threatened or afraid? {{yes|no*}}</div><div>3. [place] / neglect symptoms observed by clinician? {{yes|no}} If yes , was a referral made to an agency {{n/a|yes|no}}</div><div>&lt ;br></div> Physical Exam Notes: <div>General appearance: No acute distress, pleasant.</div><div>Grooming: Adequate.</div><div>Orientat ion: X3</div><div>Speech: Fluent</div><div>Comprehensi on: Intact</div><div>Eye contact: Good</div><div>Mood: Good</d iv><div>Thoughts: Logical</div><div>Insight: Good</div><div>Judgment: Goo d</div><div>Recall: Good</div><div>Assessment: 20-minute [id number]. Ante rior abdominal wall hernia inferior into the left of umbilicus. Approximately 3 cm in diameter</div>
--- OUTSIDE RECORDS SUMMARY | 2022-07-31 14:56 | External Medical Summary | Encounter Summary ---
:1965 Author Care Team Providers Name Role Phone Shakila Crockett KIDS CLUB ATTENDANT Primary Care Provider [phone] Marisa Goyal DO General Surgeon [phone] Reason for Visit Throat lump left side of neck, painful Assessment and Plan 1. Dysfunction of eustachian tube Patient is noting clicking with talking and swallowing of the left ear. She is also noting pain along the left side of her neck for the last 2 weeks. She is not having any difficulty with swallowing is not having any kind of sinus drainage. Patient does have a history of non- Hodgkin's lymphoma. On examination patient is afebrile and a ppears nontoxic. She does appear to have slight fluid behind her tympanic membrane. Patient does not have any sinus drainage her mucous membranes are pink and fadumo st. Tenderness along the left cervical a nterior chain but with only a slight swelling of the mid lymph node. Plan: Patient will use Nasacort nasal sp ray daily along with taking generic Zyrtec daily. Patient will let me know within 2 weeks if this does not resolve. May look at another soft tissue CT of the neck. eustachian tube problems: care instru ctions 2. Lymphadenopathy swollen lymph nodes: care instruction s Discussion Note: None recorded. Plan of Care Reminders Provider Appointments Medicare Annual 08/12/2022 3:15PM Shakila Zheng, Kristopher [employer] CLUB ATTENDANT Return to Office on or around Mónica Daly, 07/30/2023 KIDS CLUB ATTENDANT Return to Office on or around 09/27/2023 [...] in 113 lbs 18 kg/m2 102/60 mm[Hg] Results Lab Results None recorded. Allergies [...] is the highest grade or level of [id number] school you have completed or the highest [...] Heavy Do you feel stressed (tense, restless, [id number] nervous, or anxious, or unable to sleep [...] you have difficulty seeing?? Yes Past Encounters 07/03/2022 Dysfunction of Eustachian Tube; Lymphade nopathy Shakila Crockett NP: [address] [place] [address], Ph. 06/17/2022 Hernia of Anterior Abdominal Wall Shakila Crockett KIDS CLUB ATTENDANT: [address] [place] [address], Ph. History of Present Illness Note: <div>56-year-old female in today with concerns of clicking of her left ear and pain in the left side of her throat.</div><div>
</div><div>Patient is noting clicking with talking and swallowing of the left ear. She is also noting pain along the left side of her neck for the last 2 weeks. She is not having any difficulty with swallowing is not having any kind of sinus drainage. Patient does have a history of non-Hodgkin's lymphoma.</div><div>On examination patient is afebrile and appears nontoxic. She does appear to have slight fluid behind h er tympanic membrane. Patient does not have any sinus drainage her mucous membranes are pink and moist. Tenderness along the left cervical anterior chain but with only a slight swelling of the mid lymph node.</div> Review of Systems Comprehensive General Adult ROS [...] skin color, no breast lump Neurologic: Neurologic: no loss of consc iousness, [...] no freque nt sneezing Notes: <div><strong>PAIN ASSESSMENT </strong>
1. Pain assessed rating {{0|1|2|3|4|5|6|7|8|9 |10}}/10 using standard pain scale.
2. Intervention fo r pain {{n/a|yes|no}} ___
3. Pain reassessed at minutes as {{0|1|2|3| 4|5|6|7|8|9|10}} using standard pain scale.
<strong> SAFE TY / ABUSE SCREENING ASSESSMENT </strong>
1. Have you fallen in the last 30 days? {{yes|no}}
2. Are you cur rently in a relationship where you feel threatened or afraid? { {yes|no}}
3. Abuse / neglect symptoms observed by clinici an? {{yes|no}} If yes, was a referral made to an agency { {n/a|yes|no}}
</div> Physical Exam Upper Respiratory Exam Reported By: Patient Constitutional: General Appearance: too thin Head and Face: Inspection of face: no swell ing. Palpation and percussion of sinuses: no tenderness. Sali vary glands: no enlargement, no tenderness Eyes: Lids and Conjunctivae: no in jection, anicteric, pink, lids are normal, conjunctiva: no muco id discharge. Pupils: equal, round ENMT: Ears and Nose: no scars, no lesions, no masses. EACs and TMs outer ear: right and left external auditory canals normal, tympanic membranes mobile and reactiv e to light , effusion(s) left. Nasal Passages: no nasal discharge . Lips and Gums: no sores, no bleeding. Hearing: normal. Oropharynx: no erythema, no lesions, no exudates, no postnasal drip, uvula mid line, no pooling of saliva Neck: Neck: suppleness, no masses, symmetrical, tender left. Thyroid no thyromegaly, nontender, no m asses Lymphatic System: Cervical lymph nodes: no inf lammation, not palpable, tenderness left Respiratory: Respiratory effort: breathin g normally, no inspiratory retraction. Auscultation: no wheezes, no rhonchi, no crackles, breath sounds normal Cardiovascular: Heart Palpitation: PMI not d isplaced. Auscultation: irregularly irregular rhythm Skin: skin inspection: no rashes, no lesions, no ulcers"
--- OUTSIDE RECORDS SUMMARY | 2022-07-31 14:56 | External Medical Summary | Encounter Summary ---
:1965 Author Care Team Providers Name Role Phone Shakila Crockett VICE PRESIDENT OF COMMUNICATIONS Primary Care Provider [phone] Marisa Goyal DO General Surgeon [phone] Reason for Visit new patient; Bradycardia; CARDIAC CLEARA NCE Need EKG for cardiac clearance.Most rece nt labs/imaging in EMR. -AG 07/25/22 Assessment and Plan 1. Preoperative cardiovascular examinat ion Perioperative cardiac risk is elevated but acceptable. 2. Premature atrial contraction Frequent PACs noted on EKG. Not heart b lock. Patient reassured. Relatively asymptomatic. No specific RX for now. 3. Coronary arteriosclerosis According to chart, patient has had cor onary stent in 2010. Patient does not recall. No concerning symptoms at this time. On statin. Eliquis for anticoagulation rather than aspirin given history of pulmonary embolism. 4. Mixed hyperlipidemia Continue statin. Discussion Note Follow up in one year. Patient educational handouts: No information available. Plan of Care Reminders Provider Appointments Medicare Annual 08/12/2022 3:15PM Shakila Zheng, [facility] VICE PRESIDENT OF COMMUNICATIONS Return to Office on or around March [facility], 07/30/2023 VICE PRESIDENT OF COMMUNICATIONS Return to Office on or around 09/27/2023 [...] in 109 lbs 17.3 kg/m2 110/63 mm[Hg] Results Lab Results None recorded. Allergies Code Code System Name Reaction Severity Onset 7091 RxNorm Morphine 05/05/2022 NKDA Notes: Patient indicated [...] pre servative free 09/27/20180.5 mL 09/12/20190.5 mL .5 mL Tdap 09/27/20180.5 mL Social History Tobacco [...] is the highest grade or level of [id number] school you have completed or the highest [...] Heavy Do you feel stressed (tense, restless, [id number] nervous, or anxious, or unable to sleep [...] you have difficulty seeing?? Yes Past Encounters 07/30/2022 Preoperative Cardiovascular Examination; Premature Atrial Contraction; Coronary Arteriosclerosis; Mixed Hyperlipidemia Samir Palomino MD: [address] [place] [address] , [place] [address], Ph. 07/17/2022 Lesion of Spleen; History of non-Hodgkin s Lymphoma Shakila Crockett VICE PRESIDENT OF COMMUNICATIONS: [address] [facility] [place] [address], Ph. 07/03/2022 Dysfunction of Eustachian Tube; Lymphade nopathy Shakila Crockett NP: [address] [facility] [place] [address], Ph. History of Present Illness Note: <div>Abdominal hernia. Splenic mass. Patient is being seen preoperatively in consultation. Having EGD. Possibly J tube. Problems with gastric emptying. </div><div>
</div><div>Losing weight. Painful eating. </div><div>
</div><div>CARDIAC and medical history:</div><div>Coronary stent 2010</div><div>History of pulmonary embolism</div><div>History of NHL</div><div>History of gastric cancer</div><div>Uterine mass -- precancerous. S/P hysterectomy.</div><div>
</div><div>Data review:</div><div>I have independently interpreted:</div><div>EKG 06/2022. Sinus with PACs.</div><div>EKG 04/2022. Sinus with PACs.</div><div>
</div><div>Labs:</div><div>Trop < 0.01 04/2022</div><div>Cr 0.8 06/2022</div><div>HCT 32 06/2022 </div><div>
</div><div>
</div><div>
</div> Review of Systems Brief Cardiology ROS Reported By: Patient Cardio Basic: Cardiovascular Symptoms: no chest pressure, no lightheadedness, no leg caden a, no syncope, no orthopnea, no PND, no claudication, chest pain, dyspnea on exertion, fatigue, palpitations Constitutional: Constitutional: no fever, no night sweats, no significant weight gain, no significant weight loss, no exercise intolerance Eyes: Eyes: no dry eyes, no irrita tion, no vision change ENMT: Ears: no difficulty hearing, no ear pain. Nose: no frequent nosebleeds, no nose/sinus pr oblems. Mouth/Throat: no sore throat, no bleeding gums, no snoring, no dry mouth, no mouth ulcers, no oral abnormalitie s, no teeth problems Respiratory: Respiratory: no cough, no wh eezing, no coughing up blood, no sleep apnea Musculoskeletal: Musculoskeletal: no muscle a ches, no muscle weakness, no arthralgias/joint pain, no b ack pain, no swelling in the extremities Neurologic: Neurologic: no loss of consc iousness, no weakness, no numbness, no seizures, no di zziness, no headaches Psychiatric: Psych: no depression, no sle ep disturbances, feeling safe in relationship, no alcohol abu se Hematologic/Lymphatic: Hematologic/Lymphatic no swo llen glands, no bruising Physical Exam Notes: <div>Examination
</div><d iv>Vitals see above</div><div>
</div ><div>General. No acute distress. Conversant.</div><div>
&l t;/div><div>HEENT. Normocephalic atraumatic. Mucous membranes moist. Scle ra anicteric. Oropharynx clear.</div><div>
</div>< div>Chest. Clear. Normal effort. Symmetric.</div><div>
</d iv><div>Cardiovascular. JVP is normal. Normal S1 and S2. No gallops or rubs.< /div><div>
</div><div>Abdomen. Normal bowel sounds. Soft nontender nondi stended. No appreciated hepatosplenomegaly.</div><di v>
</div><div>Extremities. No cyanosis. No clubbing. No edema.</div><di v>
</div><div>Skin. Warm and dry. No rashes.</div><div>
</div> <div>Neurological. Alert and oriented x3. Nonfocal. No asymmetry is no jg.</div><div>
</div><div>Psychiatric. Affect and tone are normal.< /div><div>
</div><div>
</div><div>
</div>
[2022-07-31 16:06] LABS: Basophils # (Auto) 0.04 K/mcL (0.00-0.30); Basophils % (Auto) 0.9 % (0.0-2.0); Eosinophils # (Auto) 0.12 K/mcL (0.00-0.70); Eosinophils % (Auto) 2.7 % (0.0-7.0); Hematocrit 33.8 % (34.1-44.9); Hemoglobin 11.5 g/dL (11.2-15.7); Lymphocytes # (Auto) 1.98 K/mcL (1.50-4.80); Lymphocytes % (Auto) 44.9 % (15.5-49.0); Mean Cell Volume 93.1 fL (80.0-100.0); Mean Platelet Volume 10.7 fL (7.4-10.4); Monocytes # (Auto) 0.27 K/mcL (0.10-0.90); Monocytes % (Auto) 6.1 % (1.0-12.0); Neutrophils % (Auto) 45.4 % (38.0-78.0); Platelet Count 216 K/mcL (140-440); RBC 3.63 M/mcL (3.59-5.38); Red Cell Distribution Width 13.2 % (11.5-14.5); WBC 4.4 K/mcL (4.5-11.0)
[2022-07-31] MEDS: 0.9 % SODIUM CHLORIDE 1,000 ML IV SCH (16:19)
[2022-07-31 16:35] LABS: ALT/SGPT 6 U/L (<40); AST/SGOT 14 U/L (<32); Albumin 3.7 gm/dL (3.2-5.2); Albumin/Globulin Ratio 1.3 (1.0-2.3); Alkaline Phosphatase 34 U/L (39-117); Bilirubin,Direct < 0.2 mg/dL (0-0.3); Bilirubin,Total 0.2 mg/dL (0.1-1.0); Blood Urea Nitrogen 5 mg/dL (6-20); Carbon Dioxide 28 mmol/L (22-30); Chloride 96 mmol/L (96-108); Globulin 2.8 gm/dL (2.2-3.7); Glomerular Filtration Rate 97; Glucose 88 mg/dL (70-105); Lactate Dehydrogenase 185 U/L (135-225); Phosphorous 4.5 mg/dL (2.5-4.5); Triglycerides 178 mg/dL (<150); Uric Acid 3.6 mg/dL (2.5-8.0)
[2022-07-31] MEDS ORDERED: fentaNYL 50 MCG PATCH TOPICAL SCH (17:00)
[2022-07-31] MEDS ORDERED: BENZOCAINE 1 SPRAY BOTTLE TOPICAL PRN (17:12)
[2022-07-31] MEDS: HYDROmorphone 1 MG/ML SYRINGE IV PRN ×2 (17:16→21:35)
[2022-07-31] MEDS ORDERED: LIDOCAINE VISCOUS 2% 15 ML UNIT DOSE CUP PO ONE (17:30)
--- NOTE | 2022-07-31 17:33 | General Surg History&Physical ---
HPI History of Present Illness Patient information: Note initiated : 07/31/22 at 5:17 pm Service Date, if different from initiated Date: [] Patient: Kimmie Morrow a 56 y/o F admitted on 07/31/22 for gastric outlet obstruction EGD. Chief Complaint: [] History of present illness: Ms. Sobeida Lucas is a 56 year old F admitted with prolonged and severe symptoms of gastric outlet obstruction. The patient gives a history of weight loss of o latia 60 pounds over the past 2 years however review of her records revealed that she has had symptoms since May 2017. She has had epigastric and left upper quadrant pain. She has pain after every meal and has had constant nausea with episodic vomiting of undigested food within hours of eating. Her pain radiates through to her back. She uses promethazine 4 times a day for the nausea and vomiting but continues to be symptomatic. CT of the abdomen and pelvis shows a major enlargement of the stomach without any deformity and what normal-appearing pylorus but dilated duodenum suggesting that she has obstruction distal to the first portion of the duodenum. This would be compatible with acute SMA syndrome however she may have other etiologies. A gastric emptying studies shows prolonged emptying of the stomach compatible with gastric outlet syndrome. Upper GI shows dilated stomach with poor emptying into the duodenum. Patient remains severely symptomatic and is admitted for urgent upper endoscopy and probable need for laparotomy with gastrojejunostomy. This has been discussed with her in detail The patient was referred to me initially for evaluation of the splenic mass. She was told that she needed urgent splenectomy because of the splenic mass and the mass was the reason for her symptoms however review of her old records revealed that the splenic mass has been present since 2011 and there was no significant change on the CT performed in 2020. Recent CT showed the mass to be in the hilum and was 2.5 x 2.5cm. This is unchanged since 2011. A PET/CT performed on in December 2021 showed that the mass was not metabolically active and was stable since the previous study done in July 2021. Because of this I do not think that the splenic lesion is of any clinical significance. Further work-up of that will be delayed this time. Constitutional Constitutional: Present anorexia, fatigue, malaise and weight loss (Documented 60 pound weight loss) EENT Eyes: Present other (Dysphagia) Nose, mouth and throat: Present headache(s) and vertigo Additional comments: Dentures Cardiovascular Cardiovascular: Present chest pain and dyspnea on exertion Respiratory Respiratory: Present wheezing Gastrointestinal Gastrointestinal: Present abdominal pain, belching, bloating, change in bowel habits, cramping, dysphagia, early satiety, heartburn and nausea Musculoskeletal Musculoskeletal: Present back pain and numbness Neurological Neurological: Present headache(s), numbness, tingling, vertigo and weakness Psychiatric Psychiatric: Present anxiety and depression Hematologic/Lymphatic Hematologic/Lymphatic: Absent easy bleeding, easy bruising or lymphadenopathy Allergic/Immunologic Allergic/Immunologic: Absent tongue swelling, throat swelling, uticaria or wheezing PFSH PFSH All Active Problems (Updated 07/31/22 @ 14:07 by Mariana Hill MD) Duodenal obstruction (Acute) Chronic pain after cancer treatment (Acute) Acute pain (Acute) Unintentional weight loss (Acute) Epigastric abdominal pain (Acute) Protein calorie malnutrition (Acute) Gastric outlet obstruction (Acute) Gastroparesis (Acute) Nausea and vomiting in adult (Acute) Acute rhinosinusitis (Chronic) Hemorrhoids (Chronic) Abdominal pain (Chronic) Splenic mass (Chronic) Foreign body (FB) in soft tissue (Chronic) Laceration of dorsum of left foot (Chronic) Hemoptysis (Chronic) CHF (congestive heart failure) (Chronic) Depression (Chronic) Myocardial infarction (Chronic) Atrial fibrillation (Chronic) History of radiation therapy (Chronic) History of chemotherapy (Chronic) Gastric cancer (Chronic ~2005) Pulmonary embolism (Chronic) Chronic anticoagulation (Chronic) residential prescription opiate use (Chronic) Tobacco use (Chronic) History of total abdominal hysterectomy (Chronic) Cervical cancer (Chronic ~1998) Uterine cancer (Chronic) Non-Hodgkin lymphoma (Chronic) Bipolar 1 disorder, mixed (Chronic) Splenic mass (Chronic) Epigastric abdominal pain (Chronic) GERD (gastroesophageal reflux disease) (Chronic) Bilateral shoulder pain (Chronic) Neuropathic pain (Chronic) Chronic pain syndrome (Chronic) Emphysema, unspecified (Chronic) Acute sinusitis (Chronic) Bursitis of right shoulder (Chronic) Hypothyroidism (Chronic) Esophageal spasm (Chronic) COPD (chronic obstructive pulmonary disease) (Chronic) COPD with acute exacerbation (Chronic) Left arm pain (Chronic) Medical History Abdominal pain Acute rhinosinusitis Acute sinusitis Atrial fibrillation Bilateral shoulder pain Bipolar 1 disorder, mixed Bursitis of right shoulder Cervical cancer (~1998) CHF (congestive heart failure) Chronic anticoagulation Chronic pain syndrome COPD (chronic obstructive pulmonary disease) COPD with acute exacerbation Depression Emphysema, unspecified Epigastric abdominal pain Esophageal spasm Foreign body (FB) in soft tissue Gastric cancer (~2005) GERD (gastroesophageal reflux disease) Hemoptysis Hemorrhoids History of chemotherapy History of pulmonary embolism The patient is an anxious female concerned that that is something seriously wrong with her with multiple medical problems as listed above and in the HPI. At this time I will try and clarify her situation by getting pulmonary function study tests with arterial blood gas and co-oximetry. I will try and get a CT scan of the chest and the pulmonary angiogram mode given her history of pulmonary embolus and the presence of hemoptysis. History of radiation therapy Hypothyroidism Laceration of dorsum of left foot Left arm pain residential prescription opiate use Myocardial infarction Neuropathic pain Non-Hodgkin lymphoma Pulmonary embolism Splenic mass Splenic mass Tobacco use Uterine cancer Surgical History History of biopsy (~2015) spleen History of section History of hysterectomy History of PTCA (~06/2011) History of repair of left rotator cuff History of resection of stomach History of tonsillectomy and adenoidectomy History of total abdominal hysterectomy Status post coronary artery stent placement (~06/2011) Status post wrist surgery Family History Mother Diabetes Hypertension Father COPD (chronic obstructive pulmonary disease) Alcoholism Daughter Migraines Sister Malignant tumor of breast Social History marital status: education level: college occupational status: disabled sexually active: Yes physical activity: none smoking status: Current every day smoker tobacco type: cigarettes per day: 30 pack-years: 30 quit status: considering quitting alcohol intake frequency: holiday/special occasion only substance use type: does not use seatbelt use: always working smoke detector in home: Yes carbon monox detector in home: Yes MEDS/ALLERGIES Home Medications and Allergies Home Medications Medication Instructions Recorded Confirmed Type omeprazole 20 mg capsule,delayed 20 mg PO BIDAC 01/10/16 07/31/22 History release revefenacin 175 mcg/3 mL solution 175 mcg (3 mL) inhalation QDAY #90 06/09/22 07/31/22 Rx for nebulization (Yupematiasi) mL apixaban 5 mg tablet (Eliquis) 5 mg PO BID 07/23/22 07/31/22 History levothyroxine 100 mcg tablet 100 mcg PO QDAY 07/24/22 07/31/22 History metoclopramide HCl 10 mg tablet 10 mg PO QAC Gastroparesis #90 tabs 07/24/22 07/31/22 Rx (Reglan) oxycodone-acetaminophen 10 mg-325 1 tab PO TID PRN Pain 07/24/22 07/31/22 History mg tablet albuterol sulfate 90 mcg/actuation 2 puff inhalation Q6HP PRN dyspnea 07/28/22 07/31/22 History aerosol inhaler eszopiclone 1 mg tablet 1 tab PO HS 07/28/22 07/31/22 History fentanyl 12 mcg/hr transdermal 1 patch transdermal Q72H #5 ea 07/28/22 07/31/22 Rx patch fluoxetine 40 mg capsule 2 cap PO QDAY 07/28/22 07/31/22 History lithium carbonate 300 mg capsule 1 cap PO QDAY 07/28/22 07/31/22 History naloxone 4 mg/actuation nasal spray 1 spray intranasal QDAY 07/28/22 07/31/22 History promethazine 25 mg rectal 25 mg NM Q6H PRN nausea and 07/28/22 07/31/22 Rx suppository vomiting #12 ea scopolamine base 1 mg over 3 days 1 patch transdermal Q72H #24 ea 07/28/22 07/31/22 Rx transdermal patch sucralfate 100 mg/mL oral 10 ml PO QID 07/28/22 07/31/22 History suspension topiramate 25 mg tablet 1 - 4 tab PO BID 07/28/22 07/31/22 History zolpidem 10 mg tablet 1 tab PO HS 07/28/22 07/31/22 History Xtampza ER 18 mg PO BID 07/31/22 07/31/22 History Allergies Allergy/AdvReac Type Severity Reaction Status Date / Time morphine Allergy Severe dyspnea Verified 07/31/22 12:58 Physical Examination Vital Signs Vital signs: Temp Pulse Resp BP Pulse Ox O2 Del Method 98.3 F 57 L 16 141/80 96 07/31/22 16:00 07/31/22 16:00 07/31/22 16:00 07/31/22 16:00 07/31/22 16:00 07/31/22 16:00 General physical appearance General physical exam: moderate distress, moderate pain, cachectic and chronically ill Eyes Eye exam: PERRL and normal ocular movement ENT ENT exam: no congestion and dentures Head Head exam IM: Present atraumatic, normal inspection and normocephalic Neck Neck exam: no masses, no bruits, trachea midline, no lymphadenopathy and no venous distension Cardiovascular Cardiovascular exam IM: Present normal rate and rhythm, RRR, +S1, +S2 and tachycardia; Absent JVD Respiratory Respiratory exam: normal expansion, normal respiratory effort and clear to auscultation Abdomen Abdomen: Present tender (Epigastric and right upper quadrant tenderness) Integumentary Integumentary: Present no rash, no growths and no abnormal pigmentation Neurologic Neurologic: Present normal coordination and normal sensation Musculoskeletal Musculoskeletal: Present normal gait and normal posture Psychiatric Psychiatric: Present oriented to time, oriented to person, oriented to place, speech is normal and memory intact Results Labs Result diagrams: 07/31/22 15:19 07/31/22 15:19 Labs: Abnormal lab results 07/31/22 07/31/22 Range/Units 15:19 15:19 WBC 4.4 L (4.5-11.0) K/mcL Hct 33.8 L (34.1-44.9) % MPV 10.7 H (7.4-10.4) fL Sodium 131 L (133-145) mmol/L Anion Gap 7.0 L (8.0-16.0) BUN 5 L (6-20) mg/dL Alkaline Phosphatase 34 L (39-117) U/L Triglycerides 178 H (<150) mg/dL Diabetes panel 07/31/22 Range/Units 15:19 Sodium 131 L (133-145) mmol/L Potassium 3.3 (3.3-5.1) mmol/L Chloride 96 (96-108) mmol/L Carbon Dioxide 28 (22-30) mmol/L BUN 5 L (6-20) mg/dL Creatinine 0.7 (0.6-1.1) mg/dL Glucose 88 (70-105) mg/dL Calcium 9.0 (8.6-10.4) mg/dL AST 14 (<32) U/L ALT 6 (<40) U/L Alkaline Phosphatase 34 L (39-117) U/L Total Protein 6.5 (5.9-8.4) gm/dL Albumin 3.7 (3.2-5.2) gm/dL Triglycerides 178 H (<150) mg/dL Calcium panel 07/31/22 Range/Units 15:19 Calcium 9.0 (8.6-10.4) mg/dL Phosphorus 4.5 (2.5-4.5) mg/dL Albumin 3.7 (3.2-5.2) gm/dL Pituitary panel 07/31/22 Range/Units 15:19 Sodium 131 L (133-145) mmol/L Potassium 3.3 (3.3-5.1) mmol/L Chloride 96 (96-108) mmol/L Carbon Dioxide 28 (22-30) mmol/L BUN 5 L (6-20) mg/dL Creatinine 0.7 (0.6-1.1) mg/dL Glucose 88 (70-105) mg/dL Calcium 9.0 (8.6-10.4) mg/dL Adrenal panel 07/31/22 Range/Units 15:19 Sodium 131 L (133-145) mmol/L Potassium 3.3 (3.3-5.1) mmol/L Chloride 96 (96-108) mmol/L Carbon Dioxide 28 (22-30) mmol/L BUN 5 L (6-20) mg/dL Creatinine 0.7 (0.6-1.1) mg/dL Glucose 88 (70-105) mg/dL Calcium 9.0 (8.6-10.4) mg/dL Total Bilirubin 0.2 (0.1-1.0) mg/dL AST 14 (<32) U/L ALT 6 (<40) U/L Alkaline Phosphatase 34 L (39-117) U/L Total Protein 6.5 (5.9-8.4) gm/dL Albumin 3.7 (3.2-5.2) gm/dL All other labs normal. A/P Assessment and plan (1) Duodenal obstruction: Status: Acute (2) Unintentional weight loss: Status: Acute (3) Epigastric abdominal pain: Status: Acute (4) Protein calorie malnutrition: Status: Acute (5) Gastroparesis: Status: Acute (6) Nausea and vomiting in adult: Status: Acute (7) Splenic mass: Status: Chronic (8) Depression: Status: Chronic (9) residential prescription opiate use: Status: Chronic (10) Bipolar 1 disorder, mixed: Status: Chronic Plan Patient is admitted for nasogastric decompression IV hydration Urgent upper endoscopy in the morning Will probably need laparotomy with gastro - jejunostomy bypass the duodenal obstruction Sepsis Sepsis Identified: No Time Spent With Patient Time: Total time spent is greater than 50% in coordination of care (as documented) at patient's floor/unit and/or counseling patient:
[2022-07-31] MEDS: METOCLOPRAMIDE 10 MG/2 ML VIAL IV SCH (17:42)
[2022-07-31] MEDS: PANTOPRAZOLE 40 MG VIAL IV SCH (17:42)
[2022-07-31] MEDS: LORazepam 2 MG/ML VIAL IV PRN (17:43)
[2022-07-31] MEDS: IPRATROPIUM/ALBUTEROL 3 ML AMPUL.NEB NEB SCH (21:19)
[2022-07-31] MEDS: 0.9 % SODIUM CHLORIDE 10 ML SYRINGE IV SCH (21:20)
[2022-07-31] MEDS: ONDANSETRON 4 MG/2 ML VIAL IV PRN (21:35)
[2022-08-01] MEDS: HYDROmorphone 1 MG/ML SYRINGE IV PRN ×2 (01:28→05:46)
--- NOTE | 2022-08-01 02:00 | XRay Report ---
. CLINICAL INFORMATION: Preop. History of COPD COMPARISON: 07/28/2022 plain film and chest CT 11/14/2019 TECHNIQUE: Portable FINDINGS: The heart size, mediastinum and pulmonary vessels are unremarkable. Lung volume is elevated is minimal wall thickening of the bronchi compatible with chronic bronchitis. There are no infiltrates. There are no effusions. The bones and soft tissues are within normal limits. IMPRESSION: Chronic bronchitis. No acute disease. Interpreted and Authenticated by: Guillermo Welch 08/01/22
--- NOTE | 2022-08-01 02:03 | XRay Report ---
CLINICAL INFORMATION: Gastric outlet obstruction COMPARISON: None. FINDINGS: The stool gas pattern is unremarkable. Modest residual enteric contrast seen in the right and proximal transverse colon There is no free air, soft tissue mass, organomegaly or pathologic calcification. IMPRESSION: Normal abdomen Interpreted and Authenticated by: Guillermo Welch 08/01/22
[2022-08-01] MEDS: METOCLOPRAMIDE 10 MG/2 ML VIAL IV SCH ×4 (02:49→18:15)
[2022-08-01] MEDS: IPRATROPIUM/ALBUTEROL 3 ML AMPUL.NEB NEB SCH ×4 (02:50→22:04)
[2022-08-01] MEDS: 0.9 % SODIUM CHLORIDE 1,000 ML IV SCH ×3 (03:07→13:04)
[2022-08-01] MEDS: LORazepam 2 MG/ML VIAL IV PRN (05:47)
[2022-08-01] MEDS: 0.9 % SODIUM CHLORIDE 10 ML SYRINGE IV SCH ×3 (05:49→22:04)
[2022-08-01] MEDS: PANTOPRAZOLE 40 MG VIAL IV SCH ×2 (07:25→17:52)
[2022-08-01] MEDS ORDERED: ENOXAPARIN 40 MG/0.4 ML SYRINGE SQ SCH (09:00)
[2022-08-01] MEDS: ACETAMINOPHEN 1,000 MG/100 ML BAG IV PRN (09:33)
[2022-08-01] MEDS: ONDANSETRON 4 MG/2 ML VIAL IV PRN (09:52)
[2022-08-01] MEDS ORDERED: FLU VACC QS2022-23(6MOS UP)/PF 60 MCG/0.5 ML SYRINGE IM ONE (10:00)
[2022-08-01] MEDS ORDERED: PNEUMOCOCCAL 23-VAL P-SAC VAC 0.5 ML SYRINGE IM ONE (10:00)
--- NOTE | 2022-08-01 10:08 | EKG ---
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
[2022-08-01] MEDS: PROMETHAZINE 25 MG/ML VIAL IV PRN (13:04)
[2022-08-01] MEDS ORDERED: MIDAZOLAM 2 MG/2 ML VIAL ONE (16:30)
[2022-08-01] MEDS ORDERED: GLYCOPYRROLATE 0.2 MG/ML VIAL IV ONE (16:30)
[2022-08-01] MEDS ORDERED: KETAMINE 50 MG/ML Syringe (ANEST) IV ONE (16:30)
[2022-08-01] MEDS ORDERED: PROPOFOL 200 MG/20 ML VIAL IV ONE (16:30)
[2022-08-01] MEDS ORDERED: ONDANSETRON 4 MG/2 ML VIAL ONE (16:30)
[2022-08-01] MEDS ORDERED: LIDOCAINE HCL/PF 100 MG/5 ML SYRINGE IV ONE (16:30)
--- NOTE | 2022-08-01 17:25 | Brief Operative Note ---
Brief Operative Note Date of procedure: 08/01/22 Pre-op diagnosis: GASTROPARESIS AND AMS SYNDROME; WEIGHT LOSS Post-op diagnosis: other (GASTROPARESIS,MAJOR BILE GASTRITIS; SMA SYNDROME) Procedure: EGD Grafts/Implants: No Anesthesia: MAC Findings: DILATED HYPOPERISTALTIC STOMACH WITH RETAINED BILE GASTRIC POOL;NORMAL DUODENAL PERISTALSIS ;MODERATE STENOSIS OF 3RD PORTION OF DUODENUM Complications: none Surgeon: Mariana Hill Estimated blood loss (cc): 0 Specimens Removed/Pathology: none sent Condition: stable Disposition: floor
[2022-08-01] MEDS ORDERED: CEFEPIME 2 GM VIAL IV ONE (17:30)
[2022-08-02] MEDS: 0.9 % SODIUM CHLORIDE 1,000 ML IV SCH ×5 (00:50→23:35)
[2022-08-02] MEDS: HYDROmorphone 1 MG/ML SYRINGE IV PRN ×5 (00:50→22:34)
[2022-08-02] MEDS: METOCLOPRAMIDE 10 MG/2 ML VIAL IV SCH ×4 (00:52→17:09)
[2022-08-02] MEDS: ONDANSETRON 4 MG/2 ML VIAL IV PRN (00:52)
[2022-08-02] MEDS: ACETAMINOPHEN 1,000 MG/100 ML BAG IV PRN ×2 (02:39→18:48)
[2022-08-02] MEDS: PROMETHAZINE 25 MG/ML VIAL IV PRN ×3 (02:45→20:23)
[2022-08-02] MEDS: IPRATROPIUM/ALBUTEROL 3 ML AMPUL.NEB NEB SCH ×4 (03:11→18:54)
[2022-08-02] MEDS: 0.9 % SODIUM CHLORIDE 10 ML SYRINGE IV SCH ×3 (05:20→22:35)
[2022-08-02] MEDS ORDERED: CEFEPIME 2 GM VIAL IV SCH (06:00)
[2022-08-02] MEDS: PANTOPRAZOLE 40 MG VIAL IV SCH ×2 (06:33→17:09)
[2022-08-02] MEDS ORDERED: LEVOTHYROXINE 100 MCG TABLET PO SCH (07:30)
[2022-08-02 07:35] LABS: ALT/SGPT < 5 U/L (<40); AST/SGOT 11 U/L (<32); Albumin 2.8 gm/dL (3.2-5.2); Albumin/Globulin Ratio 1.4 (1.0-2.3); Alkaline Phosphatase 25 U/L (39-117); Bilirubin,Direct < 0.2 mg/dL (0-0.3); Bilirubin,Total 0.3 mg/dL (0.1-1.0); Blood Urea Nitrogen 4 mg/dL (6-20); Calcium 7.7 mg/dL (8.6-10.4); Carbon Dioxide 26 mmol/L (22-30); Chloride 108 mmol/L (96-108); Glomerular Filtration Rate 102; Glucose 94 mg/dL (70-105); Lactate Dehydrogenase 131 U/L (135-225); Phosphorous 2.6 mg/dL (2.5-4.5); Triglycerides 91 mg/dL (<150); Uric Acid 3.3 mg/dL (2.5-8.0)
[2022-08-02 07:37] LABS: Basophils # (Auto) 0.02 K/mcL (0.00-0.30); Basophils % (Auto) 0.4 % (0.0-2.0); Eosinophils # (Auto) 0.09 K/mcL (0.00-0.70); Eosinophils % (Auto) 1.8 % (0.0-7.0); Hematocrit 28.4 % (34.1-44.9); Hemoglobin 9.4 g/dL (11.2-15.7); Lymphocytes # (Auto) 2.39 K/mcL (1.50-4.80); Lymphocytes % (Auto) 46.9 % (15.5-49.0); Mean Cell Volume 93.4 fL (80.0-100.0); Mean Corpuscular HGB Conc 33.1 g/dL (31.0-36.0); Mean Platelet Volume 11.2 fL (7.4-10.4); Monocytes % (Auto) 5.9 % (1.0-12.0); Neutrophils % (Auto) 44.8 % (38.0-78.0); Platelet Count 160 K/mcL (140-440); RBC 3.04 M/mcL (3.59-5.38); Red Cell Distribution Width 13.2 % (11.5-14.5); WBC 5.1 K/mcL (4.5-11.0)
[2022-08-02] MEDS ORDERED: FLUoxetine HCL 20 MG CAPSULE PO SCH (09:00)
[2022-08-02] MEDS ORDERED: SCOPOLAMINE 1 PATCH PATCH TOPICAL PRN (09:00)
[2022-08-02] MEDS ORDERED: IPRATROPIUM/ALBUTEROL 3 ML AMPUL.NEB NEB PRN ×2 (09:00→11:13)
[2022-08-02] MEDS ORDERED: GLYCOPYRROLATE 0.2 MG/ML VIAL IV ONE (09:10)
[2022-08-02] MEDS ORDERED: methylPREDNISolone SOD SUCC 125 MG/2 ML VIAL ONE (09:10)
[2022-08-02] MEDS ORDERED: DEXAMETHASONE 10 MG/ML VIAL ONE (09:10)
[2022-08-02] MEDS ORDERED: MIDAZOLAM 2 MG/2 ML VIAL ONE (09:10)
[2022-08-02] MEDS ORDERED: ONDANSETRON 4 MG/2 ML VIAL ONE (09:10)
[2022-08-02] MEDS ORDERED: PROPOFOL 200 MG/20 ML VIAL IV ONE (09:10)
[2022-08-02] MEDS ORDERED: MAGNESIUM SULFATE 2 GM/50 ML BAG IV ONE (09:10)
[2022-08-02] MEDS ORDERED: fentaNYL 100 MCG/2 ML VIAL IV ONE (09:10)
[2022-08-02] MEDS ORDERED: HYDROmorphone 1 MG/ML SYRINGE ONE (09:10)
[2022-08-02] MEDS ORDERED: SUCCINYLCHOLINE 20 MG/ML ML IV ONE (09:10)
[2022-08-02] MEDS ORDERED: LIDOCAINE HCL/PF 100 MG/5 ML SYRINGE IV ONE (09:10)
[2022-08-02] MEDS ORDERED: KETAMINE 50 MG/ML Syringe (ANEST) IV ONE (09:10)
[2022-08-02] MEDS ORDERED: ROCURONIUM 10 MG/ML ML IV ONE (09:10)
--- NOTE | 2022-08-02 11:05 | Brief Operative Note ---
Brief Operative Note Date of procedure: 08/02/22 Pre-op diagnosis: gastric outlet obstruction;gastroparesis;weight loss Post-op diagnosis: other (gastric outlet obstruction;gastroparesis;weight loss) Procedure: retrocolic gastrojejunostomy Grafts/Implants: No Anesthesia: GETA Findings: dilated stomach and proximal duodenum Complications: none Surgeon: Mariana Hill Estimated blood loss (cc): 25 Specimens Removed/Pathology: none sent Condition: stable Disposition: PACU
[2022-08-02] MEDS ORDERED: ONDANSETRON 4 MG/2 ML VIAL IV PRN (11:13)
[2022-08-02] MEDS ORDERED: PROMETHAZINE 25 MG/ML VIAL IV PRN (11:13)
[2022-08-02] MEDS ORDERED: NALOXONE HCL 0.4 MG/ML VIAL IV PRN (11:13)
[2022-08-02] MEDS ORDERED: LACTATED RINGERS 250 ML IV PRN (11:13)
[2022-08-02] MEDS ORDERED: FLUMAZENIL 0.1 MG/ML ML IV PRN (11:13)
[2022-08-02] MEDS ORDERED: LABETALOL 5 MG/ML ML IV PRN (11:13)
[2022-08-02] MEDS ORDERED: ACETAMINOPHEN 1,000 MG/100 ML BAG IV ONE (11:13)
[2022-08-02] MEDS ORDERED: METOPROLOL TARTRATE 5 MG/5 ML VIAL IV PRN (11:13)
[2022-08-02] MEDS ORDERED: METHOCARBAMOL 1,000 MG/10 ML VIAL IV PRN (11:13)
[2022-08-02] MEDS ORDERED: LACTATED RINGERS 1,000 ML IV SCH (11:15)
[2022-08-02] MEDS ORDERED: TPN PER PHARMACY IV SCH ×2 (11:15→13:27)
[2022-08-02] MEDS: fentaNYL 100 MCG/2 ML VIAL IV PRN ×4 (11:31→12:06)
[2022-08-02] MEDS: HYDROmorphone 0.5 MG/0.5 ML SYRINGE IV PRN ×2 (12:16→12:41)
--- NOTE | 2022-08-02 13:01 | XRay Report ---
CLINICAL INFORMATION: Central line placement COMPARISON: None. TECHNIQUE: Portable FINDINGS: Right IJ central line tip overlies the SVC. No pneumothorax or location from line placement. NG tube extends off the edge of film at least to the proximal gastric body. The heart size, mediastinum and pulmonary vessels are unremarkable. The lungs are clear. There are no effusions. The bones and soft tissues are within normal limits. IMPRESSION: Normal chest. Right IJ line in satisfactory position Interpreted and Authenticated by: Guillermo Welch 08/02/22
[2022-08-02] MEDS ORDERED: fentaNYL 100 MCG/2 ML VIAL IV PRN (13:27)
[2022-08-02] MEDS ORDERED: CALCIUM GLUCONATE IV SCH ×2 (14:00→15:00)
[2022-08-02] MEDS ORDERED: MAGNESIUM SULFATE IV SCH ×2 (14:00→15:00)
[2022-08-02] MEDS ORDERED: POTASSIUM CHLORIDE IV SCH ×2 (14:00→15:00)
[2022-08-02] MEDS ORDERED: [UNRECOGNIZED DRUG - OTHER] IV SCH ×2 (14:00→15:00)
[2022-08-02] MEDS: FAT EMULSION 20% 250 ML IV SCH (16:35)
[2022-08-02] MEDS ORDERED: 0.9 % SODIUM CHLORIDE 10 ML SYRINGE IV PRN (17:50)
[2022-08-02] MEDS ORDERED: DEXTROSE 50% 50 ML VIAL IV PRN (19:22)
[2022-08-02] MEDS ORDERED: DEXTROSE 31 GM ORAL.SUSP PO PRN (19:22)
[2022-08-02] MEDS ORDERED: INSULIN LISPRO 1 UNIT/0.01 ML UNIT SQ ONE (19:55)
[2022-08-02] MEDS ORDERED: 0.9 % SODIUM CHLORIDE 10 ML SYRINGE IV SCH (21:00)
[2022-08-02] MEDS ORDERED: INSULIN LISPRO 1 UNIT/0.01 ML UNIT SQ SCH (21:00)
[2022-08-03] MEDS: ACETAMINOPHEN 1,000 MG/100 ML BAG IV PRN ×2 (00:17→05:16)
[2022-08-03] MEDS: METOCLOPRAMIDE 10 MG/2 ML VIAL IV SCH ×5 (00:19→23:18)
[2022-08-03] MEDS: IPRATROPIUM/ALBUTEROL 3 ML AMPUL.NEB NEB SCH ×4 (00:24→18:34)
[2022-08-03] MEDS: INSULIN LISPRO 1 UNIT/0.01 ML UNIT SQ SCH ×5 (00:24→23:08)
[2022-08-03] MEDS: HYDROmorphone 1 MG/ML SYRINGE IV PRN ×6 (02:27→15:59)
[2022-08-03] MEDS: PROMETHAZINE 25 MG/ML VIAL IV PRN ×3 (02:35→19:51)
[2022-08-03] MEDS: PANTOPRAZOLE 40 MG VIAL IV SCH ×2 (06:42→16:01)
[2022-08-03 06:45] LABS: Basophils # (Auto) 0.02 K/mcL (0.00-0.30); Basophils % (Auto) 0.1 % (0.0-2.0); Eosinophils # (Auto) 0 K/mcL (0.00-0.70); Eosinophils % (Auto) 0 % (0.0-7.0); Hematocrit 31.9 % (34.1-44.9); Hemoglobin 10.6 g/dL (11.2-15.7); Lymphocytes # (Auto) 1.55 K/mcL (1.50-4.80); Lymphocytes % (Auto) 9.9 % (15.5-49.0); Mean Cell Volume 93.5 fL (80.0-100.0); Mean Corpuscular HGB Conc 33.2 g/dL (31.0-36.0); Monocytes # (Auto) 0.85 K/mcL (0.10-0.90); Monocytes % (Auto) 5.4 % (1.0-12.0); Neutrophils % (Auto) 84.1 % (38.0-78.0); Platelet Count 178 K/mcL (140-440); RBC 3.41 M/mcL (3.59-5.38); WBC 15.6 K/mcL (4.5-11.0)
[2022-08-03 07:10] LABS: ALT/SGPT 6 U/L (<40); AST/SGOT 14 U/L (<32); Albumin 3.2 gm/dL (3.2-5.2); Albumin/Globulin Ratio 1.9 (1.0-2.3); Alkaline Phosphatase 29 U/L (39-117); Bilirubin,Direct < 0.2 mg/dL (0-0.3); Bilirubin,Total 0.2 mg/dL (0.1-1.0); Blood Urea Nitrogen 8 mg/dL (6-20); Calcium 8.1 mg/dL (8.6-10.4); Carbon Dioxide 27 mmol/L (22-30); Chloride 105 mmol/L (96-108); Globulin 1.7 gm/dL (2.2-3.7); Glomerular Filtration Rate 102; Glucose 117 mg/dL (70-105); Lactate Dehydrogenase 192 U/L (135-225); Phosphorous 2.7 mg/dL (2.5-4.5); Triglycerides 66 mg/dL (<150); Uric Acid 2.4 mg/dL (2.5-8.0)
[2022-08-03] MEDS: ENOXAPARIN 40 MG/0.4 ML SYRINGE SQ SCH (08:18)
[2022-08-03] MEDS: 0.9 % SODIUM CHLORIDE 10 ML SYRINGE IV SCH ×2 (08:25→21:06)
[2022-08-03] MEDS: 0.9 % SODIUM CHLORIDE 1,000 ML IV SCH ×3 (09:21→21:06)
[2022-08-03] MEDS ORDERED: SUCRETS LOZENGE PO PRN (10:25)
--- NOTE | 2022-08-03 10:33 | General Surgery Progress Note ---
SUBJECTIVE Subjective Patient information: Note initiated : 08/03/22 at 10:27 am Service Date, if different from initiated Date: [] Patient: Kimmie Morrow 56 y/o F admitted on 07/31/22 for gastric outlet obstruction EGD. Chief Complaint: [] Interval history: Patient is stable and is much calmer today. She is having some difficulty with pain management but it is more related to her desire to have her oral oxycodone. The Dilaudid actually controls her pain well. She refuses to take fentanyl. She denies any shortness of breath. Her stoma looks good but she has not had any functions. White blood count 15.6, hemoglobin 10.6, hematocrit 31.9, potassium 3.6, BUN 8, creatinine 0.6. Constitutional Vitals: Vital Signs Temp Pulse Resp BP Pulse Ox O2 Del Method O2 Flow Rate 96.9 F L 64 16 110/59 94 1 08/03/22 06:59 08/03/22 06:59 08/03/22 06:59 08/03/22 06:59 08/03/22 06:59 08/03/22 06:59 08/02/22 18:34 Period Temp Pulse Resp BP Sys/Burnham Pulse Ox O2 Del Method O2 Flow Rate Last 24 Hr 96.9 F-99.0 F 60-80 10-26 89-145/54-87 90-100 Nasal Cannula- Room Air 1-6 Intake and Output 08/02/22 08/03/22 08/03/22 21:59 05:59 13:59 Intake Total 580 1450 977 Output Total 650 1500 Balance -70 -50 977 Intake & Output: Intake & Output 08/02/22 08/03/22 08/03/22 21:59 05:59 13:59 Intake Total 580 1450 977 Output Total 650 1500 Balance -70 -50 977 Intake: IV 100 1450 977 Sodium Chloride 0.9% 1,000 ml @ 1000 977 100 mls/hr IV .Q10H [facility] Rx#: [id number] Intralipid 20% 250 ml @ 25 mls/ 250 hr IV TuThSa@1600 [facility] Rx#: [id number] Oral 480 Output: Urine Catheter Amount 1500 Void Amount 650 Other: Urine Appearance Clear Clear Clear Uretheral (Díaz) Clear Urine Color Bright Yellow Bright Yellow Yellow Uretheral (Díaz) Yellow Urine Odor Normal Uretheral (Díaz) Normal # Bowel Movements 0 Head Head exam: Present atraumatic, normal inspection and normocephalic Eye Eye exam: Present EOMI Pupils: Present normal accommodation ENT ENT exam: Present normal external ear exam and normal oropharynx Neck Neck exam: Present full ROM and normal inspection; Absent tenderness Respiratory Respiratory exam: Present normal respiratory exam and CTAB; Absent rhonchi or wheezes Cardiovascular Cardiovascular exam: Present normal rate and rhythm, RRR, +S1 and +S2; Absent JVD GI/Abdominal GI/Abdominal exam: Present soft and diminished bowel sounds; Absent distended Additional comments: Stoma is pink; incision looks good Extremities Exam Extremities exam: Present neurovascular intact Neurological Exam Neurological exam: Present oriented X3 and reflexes normal Psychiatric Psychiatric exam: Present normal affect and normal mood A/P Assessment and plan (1) Duodenal obstruction: Status: Acute (2) Unintentional weight loss: Status: Acute (3) Protein calorie malnutrition: Status: Acute (4) Gastroparesis: Status: Acute Plan Cepacol lozenges Benadryl 50 mg nightly for sleep Time Spent With Patient Time: Total time spent is greater than 50% in coordination of care (as documented) at patient's floor/unit and/or counseling patient:
[2022-08-03] MEDS: ACETAMINOPHEN 750 MG/75 ML BAG IV SCH ×3 (11:56→23:18)
[2022-08-03] MEDS: POTASSIUM CHLORIDE IV SCH (16:07)
[2022-08-03] MEDS: [UNRECOGNIZED DRUG - OTHER] IV SCH (16:07)
[2022-08-03] MEDS: MAGNESIUM SULFATE IV SCH (16:07)
[2022-08-03] MEDS: CALCIUM GLUCONATE IV SCH (16:07)
[2022-08-03] MEDS: METHOCARBAMOL 1,000 MG/10 ML VIAL IV PRN (17:39)
[2022-08-03] MEDS: HYDROmorphone 0.5 MG/0.5 ML SYRINGE IV PRN ×6 (17:40→23:18)
[2022-08-03] MEDS: diphenhydrAMINE 50 MG/ML VIAL IV SCH (21:06)
[2022-08-04] MEDS: IPRATROPIUM/ALBUTEROL 3 ML AMPUL.NEB NEB SCH ×4 (00:46→19:19)
[2022-08-04] MEDS: METHOCARBAMOL 1,000 MG/10 ML VIAL IV PRN ×3 (00:59→18:48)
[2022-08-04] MEDS: HYDROmorphone 0.5 MG/0.5 ML SYRINGE IV PRN ×11 (00:59→15:54)
[2022-08-04] MEDS: PROMETHAZINE 25 MG/ML VIAL IV PRN ×2 (02:30→18:48)
[2022-08-04] MEDS: INSULIN LISPRO 1 UNIT/0.01 ML UNIT SQ SCH ×3 (05:18→18:05)
[2022-08-04] MEDS: METOCLOPRAMIDE 10 MG/2 ML VIAL IV SCH ×3 (05:30→18:09)
[2022-08-04] MEDS: ACETAMINOPHEN 750 MG/75 ML BAG IV SCH ×3 (05:30→17:20)
[2022-08-04 06:47] LABS: Basophils # (Auto) 0.02 K/mcL (0.00-0.30); Basophils % (Auto) 0.2 % (0.0-2.0); Eosinophils # (Auto) 0.23 K/mcL (0.00-0.70); Eosinophils % (Auto) 2.7 % (0.0-7.0); Hematocrit 29.4 % (34.1-44.9); Hemoglobin 9.6 g/dL (11.2-15.7); Lymphocytes # (Auto) 2.39 K/mcL (1.50-4.80); Lymphocytes % (Auto) 27.9 % (15.5-49.0); Mean Cell Volume 94.8 fL (80.0-100.0); Mean Corpuscular HGB Conc 32.7 g/dL (31.0-36.0); Mean Platelet Volume 10.6 fL (7.4-10.4); Monocytes # (Auto) 0.41 K/mcL (0.10-0.90); Monocytes % (Auto) 4.8 % (1.0-12.0); Neutrophils % (Auto) 64.3 % (38.0-78.0); Platelet Count 162 K/mcL (140-440); Red Cell Distribution Width 13.8 % (11.5-14.5); WBC 8.6 K/mcL (4.5-11.0)
[2022-08-04 07:24] LABS: ALT/SGPT < 5 U/L (<40); AST/SGOT 10 U/L (<32); Albumin 2.7 gm/dL (3.2-5.2); Albumin/Globulin Ratio 1.3 (1.0-2.3); Alkaline Phosphatase 25 U/L (39-117); Bilirubin,Direct < 0.2 mg/dL (0-0.3); Bilirubin,Total < 0.2 mg/dL (0.1-1.0); Blood Urea Nitrogen 8 mg/dL (6-20); Carbon Dioxide 27 mmol/L (22-30); Chloride 109 mmol/L (96-108); Globulin 2.1 gm/dL (2.2-3.7); Glomerular Filtration Rate 108; Glucose 99 mg/dL (70-105); Lactate Dehydrogenase 149 U/L (135-225); Phosphorous 2.9 mg/dL (2.5-4.5); Triglycerides 138 mg/dL (<150); Uric Acid 1.9 mg/dL (2.5-8.0)
[2022-08-04] MEDS: PANTOPRAZOLE 40 MG VIAL IV SCH ×2 (07:51→17:19)
[2022-08-04] MEDS: ENOXAPARIN 40 MG/0.4 ML SYRINGE SQ SCH (07:52)
[2022-08-04] MEDS: 0.9 % SODIUM CHLORIDE 1,000 ML IV SCH ×2 (07:53→18:03)
[2022-08-04] MEDS ORDERED: PNEUMOCOCCAL 23-VAL P-SAC VAC 0.5 ML SYRINGE IM ONE (10:00)
[2022-08-04] MEDS: 0.9 % SODIUM CHLORIDE 10 ML SYRINGE IV SCH ×2 (11:02→19:59)
[2022-08-04] MEDS: CALCIUM GLUCONATE IV SCH (15:05)
[2022-08-04] MEDS: MAGNESIUM SULFATE IV SCH (15:05)
[2022-08-04] MEDS: POTASSIUM CHLORIDE IV SCH (15:05)
[2022-08-04] MEDS: [UNRECOGNIZED DRUG - OTHER] IV SCH (15:05)
--- NOTE | 2022-08-04 16:19 | General Surgery Progress Note ---
SUBJECTIVE Subjective Patient information: Note initiated : 08/04/22 at 4:11 pm Service Date, if different from initiated Date: [] Patient: Kimmie Morrow 56 y/o F admitted on 07/31/22 for gastric outlet obstruction EGD. Chief Complaint: [] Interval history: . Patient is progressing well today. Her pain is not well controlled with the 0.5 of Dilaudid every hour so she will be switched back to 1 mg every 2 hours. She is advised that I cannot increase her narcotics more. She has a moderate amount of bilious drainage through her NG. She denies nausea. White blood count 8.6, hemoglobin 9.6, hematocrit 29.4, potassium 3.3, BUN 8, creatinine 0.5. Her incision is healing nicely. Constitutional Vitals: Vital Signs Temp Pulse Resp BP Pulse Ox O2 Del Method O2 Flow Rate 98.3 F 83 18 137/88 96 1 08/04/22 15:53 08/04/22 15:53 08/04/22 15:53 08/04/22 15:53 08/04/22 15:53 08/04/22 15:53 08/02/22 18:34 Period Temp Pulse Resp BP Sys/Burnham Pulse Ox O2 Del Method O2 Flow Rate Last 24 Hr 97.1 F-98.8 F 51-83 14-18 114-137/62-88 92-98 Room Air-Room Air Intake and Output 08/04/22 08/04/22 08/04/22 05:59 13:59 21:59 Intake Total 375 1150 1378 Output Total 1800 2550 900 Balance -1425 -1400 478 Weight 116 lb Patient Weight 08/05/22 05:59 Weight 116 lb Intake & Output: Intake & Output 08/04/22 08/04/22 08/04/22 05:59 13:59 21:59 Intake Total 375 1150 1378 Output Total 1800 2550 900 Balance -1425 -1400 478 Weight 116 lb Intake: IV 75 1150 1378 Sodium Chloride 0.9% 1,000 ml @ 1000 100 mls/hr IV .Q10H [facility] Rx#: [id number] Calcium Gluconate 13.95 Meq 1378 Magnesium Sulfate 16.24 Meq Potassium Chloride 20 Meq Potassium Phosphate 60 Meq Infuvite Adult 10 ml In Clinimix 5%-20% Solution 2,000 ml @ 60 mls/hr IV DAILY@1500 [facility] Rx#:[id number] Oral 300 Output: Gastric Drainage 450 Right Nare 450 Urine Catheter Amount 1350 2550 900 Other: Urine Appearance Clear Clear Uretheral (Díaz) Clear Urine Color Yellow Yellow Uretheral (Díaz) Yellow Bright Yellow Urine Odor Normal Normal ENT ENT exam: Present normal external ear exam and normal oropharynx Neck Neck exam: Present normal inspection Respiratory Respiratory exam: Present normal respiratory exam and CTAB Cardiovascular Cardiovascular exam: Present RRR, +S1 and +S2; Absent JVD GI/Abdominal GI/Abdominal exam: Present normal bowel sounds; Absent soft or distended Extremities Exam Extremities exam: Present neurovascular intact Neurological Exam Neurological exam: Present oriented X3 and reflexes normal Psychiatric Psychiatric exam: Present agitated and anxious A/P Assessment and plan (1) Duodenal obstruction: Status: Acute (2) Unintentional weight loss: Status: Acute (3) Protein calorie malnutrition: Status: Acute (4) Gastric outlet obstruction: Status: Acute (5) Gastroparesis: Status: Acute (6) Nausea and vomiting in adult: Status: Acute Plan Nasogastric tube will be clamped Time Spent With Patient Time: Total time spent is greater than 50% in coordination of care (as documented) at patient's floor/unit and/or counseling patient:
[2022-08-04] MEDS: HYDROmorphone 1 MG/ML SYRINGE IV PRN ×3 (17:19→22:33)
[2022-08-04] MEDS: diphenhydrAMINE 50 MG/ML VIAL IV SCH (19:57)
[2022-08-05] MEDS: ACETAMINOPHEN 750 MG/75 ML BAG IV SCH ×4 (00:22→18:03)
[2022-08-05] MEDS: METHOCARBAMOL 1,000 MG/10 ML VIAL IV PRN ×3 (00:25→11:54)
[2022-08-05] MEDS: METOCLOPRAMIDE 10 MG/2 ML VIAL IV SCH ×4 (00:26→17:37)
[2022-08-05] MEDS: PROMETHAZINE 25 MG/ML VIAL IV PRN ×2 (00:26→05:38)
[2022-08-05] MEDS: HYDROmorphone 1 MG/ML SYRINGE IV PRN ×10 (00:41→22:26)
[2022-08-05] MEDS: INSULIN LISPRO 1 UNIT/0.01 ML UNIT SQ SCH ×4 (00:42→17:17)
[2022-08-05] MEDS: IPRATROPIUM/ALBUTEROL 3 ML AMPUL.NEB NEB SCH ×2 (03:05→07:52)
[2022-08-05] MEDS: 0.9 % SODIUM CHLORIDE 1,000 ML IV SCH ×2 (03:22→14:35)
[2022-08-05] MEDS: PANTOPRAZOLE 40 MG VIAL IV SCH ×2 (07:55→17:37)
[2022-08-05] MEDS: ENOXAPARIN 40 MG/0.4 ML SYRINGE SQ SCH (08:05)
[2022-08-05] MEDS ORDERED: IPRATROPIUM/ALBUTEROL 3 ML AMPUL.NEB NEB PRN (10:11)
[2022-08-05] MEDS: 0.9 % SODIUM CHLORIDE 10 ML SYRINGE IV SCH (11:32)
[2022-08-05] MEDS: oxyCODONE HCL 5 MG TABLET PO PRN ×2 (14:34→19:49)
[2022-08-05] MEDS: [UNRECOGNIZED DRUG - OTHER] IV SCH (15:14)
[2022-08-05] MEDS: POTASSIUM CHLORIDE IV SCH (15:14)
[2022-08-05] MEDS: CALCIUM GLUCONATE IV SCH (15:14)
[2022-08-05] MEDS: MAGNESIUM SULFATE IV SCH (15:14)
[2022-08-05] MEDS: FAT EMULSION 20% 250 ML IV SCH (16:02)
[2022-08-05] MEDS: diphenhydrAMINE 50 MG/ML VIAL IV SCH (20:13)
[2022-08-06] MEDS: PROMETHAZINE 25 MG/ML VIAL IV PRN ×3 (00:20→21:43)
[2022-08-06] MEDS: METOCLOPRAMIDE 10 MG/2 ML VIAL IV SCH ×4 (00:21→17:54)
[2022-08-06] MEDS: HYDROmorphone 1 MG/ML SYRINGE IV PRN ×8 (00:21→21:43)
[2022-08-06] MEDS: METHOCARBAMOL 1,000 MG/10 ML VIAL IV PRN ×4 (00:21→21:42)
[2022-08-06] MEDS: 0.9 % SODIUM CHLORIDE 10 ML SYRINGE IV SCH ×2 (00:22→07:50)
[2022-08-06] MEDS: ACETAMINOPHEN 750 MG/75 ML BAG IV SCH ×4 (00:23→18:29)
[2022-08-06] MEDS: 0.9 % SODIUM CHLORIDE 1,000 ML IV SCH ×2 (00:25→12:10)
[2022-08-06] MEDS: INSULIN LISPRO 1 UNIT/0.01 ML UNIT SQ SCH ×4 (00:40→18:10)
[2022-08-06] MEDS: oxyCODONE HCL 5 MG TABLET PO PRN ×4 (03:20→20:28)
[2022-08-06 06:45] LABS: Basophils # (Auto) 0.02 K/mcL (0.00-0.30); Basophils % (Auto) 0.3 % (0.0-2.0); Eosinophils # (Auto) 0.46 K/mcL (0.00-0.70); Eosinophils % (Auto) 7.5 % (0.0-7.0); Hemoglobin 10.5 g/dL (11.2-15.7); Lymphocytes # (Auto) 1.27 K/mcL (1.50-4.80); Lymphocytes % (Auto) 20.7 % (15.5-49.0); Mean Cell Volume 95.4 fL (80.0-100.0); Mean Corpuscular HGB Conc 31.8 g/dL (31.0-36.0); Mean Platelet Volume 10.8 fL (7.4-10.4); Monocytes # (Auto) 0.35 K/mcL (0.10-0.90); Monocytes % (Auto) 5.7 % (1.0-12.0); Neutrophils % (Auto) 65.6 % (38.0-78.0); Platelet Count 189 K/mcL (140-440); RBC 3.46 M/mcL (3.59-5.38); Red Cell Distribution Width 13.4 % (11.5-14.5); WBC 6.1 K/mcL (4.5-11.0)
[2022-08-06 07:04] LABS: ALT/SGPT 9 U/L (<40); AST/SGOT 15 U/L (<32); Albumin/Globulin Ratio 1.2 (1.0-2.3); Alkaline Phosphatase 34 U/L (39-117); Bilirubin,Direct < 0.2 mg/dL (0-0.3); Bilirubin,Total < 0.2 mg/dL (0.1-1.0); Blood Urea Nitrogen 9 mg/dL (6-20); Calcium 8.8 mg/dL (8.6-10.4); Carbon Dioxide 26 mmol/L (22-30); Chloride 106 mmol/L (96-108); Globulin 2.5 gm/dL (2.2-3.7); Glomerular Filtration Rate 102; Glucose 101 mg/dL (70-105); Lactate Dehydrogenase 189 U/L (135-225); Triglycerides 157 mg/dL (<150); Uric Acid 1.3 mg/dL (2.5-8.0)
[2022-08-06] MEDS: PANTOPRAZOLE 40 MG VIAL IV SCH ×2 (08:10→17:01)
[2022-08-06] MEDS: ENOXAPARIN 40 MG/0.4 ML SYRINGE SQ SCH (09:05)
[2022-08-06] MEDS: METHYLNALTREXONE BROMIDE 12 MG/0.6 ML SYRINGE SQ SCH (14:19)
--- NOTE | 2022-08-06 14:47 | General Surgery Progress Note ---
SUBJECTIVE Subjective Patient information: Note initiated : 08/06/22 at 2:42 pm Service Date, if different from initiated Date: [] Patient: Kimmie Morrow 56 y/o F admitted on 07/31/22 for gastric outlet obstruction EGD. Chief Complaint: [] Principal diagnosis: Gastric outlet obstruction; gastroparesis, Interval history: Patient is doing well. She has been taking liquids for about 12 hours and has not had any nausea or vomiting. She is having flatus but no bowel movement. White blood count 6.1, hemoglobin 10.5, hematocrit 33, potassium 4.5, BUN 9, creatinine 0.6. Constitutional Vitals: Vital Signs Temp Pulse Resp BP Pulse Ox O2 Del Method O2 Flow Rate 98.6 F 48 L 18 122/75 98 1 08/06/22 12:00 08/06/22 12:00 08/06/22 07:41 08/06/22 12:00 08/06/22 12:00 08/06/22 12:00 08/02/22 18:34 Period Temp Pulse Resp BP Sys/Burnham Pulse Ox O2 Del Method O2 Flow Rate Last 24 Hr 97.6 F-99.0 F 48-97 16-20 107-127/56-75 94-98 Room Air-Room Air Intake and Output 08/06/22 08/06/22 08/06/22 05:59 13:59 21:59 Intake Total 1982 Output Total 1999 Intake & Output: Intake & Output 08/06/22 08/06/22 08/06/22 05:59 13:59 21:59 Intake Total 1982 Output Total 1999 Intake: IV 1383 Sodium Chloride 0.9% 1,000 ml @ 983 100 mls/hr IV .Q10H [facility] Rx#: [id number] Intralipid 20% 250 ml @ 25 mls/ 250 hr IV TuThSa@1600 [facility] Rx#: [id number] Oral 600 Output: Void Amount 1999 Other: Urine Appearance Clear Urine Color Pale Neck Neck exam: Present normal inspection; Absent tenderness Respiratory Respiratory exam: Present CTAB Cardiovascular Cardiovascular exam: Present normal rate and rhythm, RRR, +S1 and +S2; Absent JVD GI/Abdominal GI/Abdominal exam: Present normal bowel sounds; Absent distended or guarding Extremities Exam Extremities exam: Present neurovascular intact Neurological Exam Neurological exam: Present oriented X3 and reflexes normal Psychiatric Psychiatric exam: Present anxious A/P Assessment and plan (1) Duodenal obstruction: Status: Acute (2) Unintentional weight loss: Status: Acute (3) Protein calorie malnutrition: Status: Acute (4) Gastric outlet obstruction: Status: Acute (5) Gastroparesis: Status: Acute Plan Start RELISTOR daily to block narcotic induced ileus Advance to full liquid diet 2 view abdominal x-ray in the morning Time Spent With Patient Time: Total time spent is greater than 50% in coordination of care (as documented) at patient's floor/unit and/or counseling patient:
[2022-08-06] MEDS ORDERED: POTASSIUM CHLORIDE IV SCH (15:00)
[2022-08-06] MEDS ORDERED: MAGNESIUM SULFATE IV SCH (15:00)
[2022-08-06] MEDS ORDERED: CALCIUM GLUCONATE IV SCH (15:00)
[2022-08-06] MEDS ORDERED: [UNRECOGNIZED DRUG - OTHER] IV SCH (15:00)
--- NOTE | 2022-08-06 15:31 | General Surgery Progress Note ---
SUBJECTIVE Subjective Patient information: Note initiated : 08/06/22 at 3:30 pm Service Date, if different from initiated Date: [08/05/2022] Patient: Kimmie Morrow 56 y/o F admitted on 07/31/22 for gastric outlet obstruction EGD. Chief Complaint: [] Principal diagnosis: Gastric outlet obstruction; gastroparesis, Interval history: Patient continues to do well. She has tolerated having her nasogastric tube clamped and the tube is discontinued. She is having flatus but no bowel movement so far. She will be started on clear liquids. Her oral oxycodone will be added for better pain management. She is advised that diet will be advanced slowly. Constitutional Vitals: Vital Signs Temp Pulse Resp BP Pulse Ox O2 Del Method O2 Flow Rate 98.6 F 48 L 18 122/75 98 1 08/06/22 12:00 08/06/22 12:00 08/06/22 07:41 08/06/22 12:00 08/06/22 12:00 08/06/22 12:00 08/02/22 18:34 Period Temp Pulse Resp BP Sys/Burnham Pulse Ox O2 Del Method O2 Flow Rate Last 24 Hr 97.6 F-99.0 F 48-97 16-20 107-127/56-75 94-98 Room Air-Room Air Intake and Output 08/06/22 08/06/22 08/06/22 05:59 13:59 21:59 Intake Total 1982 1000 Output Total 1999 1000 Intake & Output: Intake & Output 08/06/22 08/06/22 08/06/22 05:59 13:59 21:59 Intake Total 1982 1000 Output Total 1999 1000 Intake: IV 1383 1000 Sodium Chloride 0.9% 1,000 ml @ 983 1000 100 mls/hr IV .Q10H [facility] Rx#: [id number] Intralipid 20% 250 ml @ 25 mls/ 250 hr IV TuThSa@1600 [facility] Rx#: [id number] Oral 600 Output: Void Amount 1999 Other: Urine Appearance Clear Urine Color Pale Neck Neck exam: Present normal inspection Respiratory Respiratory exam: Present normal respiratory exam and CTAB Cardiovascular Cardiovascular exam: Present normal rate and rhythm, RRR, +S1 and +S2; Absent JVD GI/Abdominal GI/Abdominal exam: Present normal bowel sounds and soft; Absent distended or tenderness Extremities Exam Extremities exam: Present normal inspection and neurovascular intact Neurological Exam Neurological exam: Present oriented X3 and reflexes normal Psychiatric Psychiatric exam: Present anxious A/P Assessment and plan (1) Duodenal obstruction: Status: Acute (2) Unintentional weight loss: Status: Acute (3) Protein calorie malnutrition: Status: Acute (4) Gastric outlet obstruction: Status: Acute (5) Gastroparesis: Status: Acute Plan Discontinue nasogastric tube Start clear liquids Oxycodone to be given p.o. Time Spent With Patient Time: Total time spent is greater than 50% in coordination of care (as documented) at patient's floor/unit and/or counseling patient:
[2022-08-06] MEDS: diphenhydrAMINE 50 MG/ML VIAL IV SCH (20:28)
[2022-08-07] MEDS: 0.9 % SODIUM CHLORIDE 1,000 ML IV SCH ×5 (00:04→21:41)
[2022-08-07] MEDS: ACETAMINOPHEN 750 MG/75 ML BAG IV SCH ×4 (00:05→17:12)
[2022-08-07] MEDS: METOCLOPRAMIDE 10 MG/2 ML VIAL IV SCH ×4 (00:06→17:09)
[2022-08-07] MEDS: HYDROmorphone 1 MG/ML SYRINGE IV PRN ×8 (00:06→19:26)
[2022-08-07] MEDS: 0.9 % SODIUM CHLORIDE 10 ML SYRINGE IV SCH ×3 (00:09→21:06)
[2022-08-07] MEDS: INSULIN LISPRO 1 UNIT/0.01 ML UNIT SQ SCH ×4 (00:17→17:22)
[2022-08-07] MEDS: oxyCODONE HCL 5 MG TABLET PO PRN ×4 (04:13→21:05)
[2022-08-07] MEDS: PROMETHAZINE 25 MG/ML VIAL IV PRN (05:28)
[2022-08-07 06:28] LABS: Basophils # (Auto) 0.03 K/mcL (0.00-0.30); Basophils % (Auto) 0.6 % (0.0-2.0); Eosinophils # (Auto) 0.44 K/mcL (0.00-0.70); Eosinophils % (Auto) 8.6 % (0.0-7.0); Hemoglobin 9.4 g/dL (11.2-15.7); Lymphocytes % (Auto) 23.6 % (15.5-49.0); Mean Cell Volume 94.8 fL (80.0-100.0); Mean Corpuscular HGB Conc 32.4 g/dL (31.0-36.0); Mean Platelet Volume 10.9 fL (7.4-10.4); Monocytes # (Auto) 0.51 K/mcL (0.10-0.90); Neutrophils % (Auto) 56.8 % (38.0-78.0); Platelet Count 187 K/mcL (140-440); RBC 3.06 M/mcL (3.59-5.38); Red Cell Distribution Width 13.5 % (11.5-14.5); WBC 5.1 K/mcL (4.5-11.0)
[2022-08-07 07:02] LABS: ALT/SGPT 11 U/L (<40); AST/SGOT 23 U/L (<32); Albumin/Globulin Ratio 1.3 (1.0-2.3); Alkaline Phosphatase 36 U/L (39-117); Bilirubin,Direct < 0.2 mg/dL (0-0.3); Bilirubin,Total 0.2 mg/dL (0.1-1.0); Blood Urea Nitrogen 7 mg/dL (6-20); Calcium 8.6 mg/dL (8.6-10.4); Carbon Dioxide 24 mmol/L (22-30); Chloride 107 mmol/L (96-108); Globulin 2.3 gm/dL (2.2-3.7); Glomerular Filtration Rate 108; Glucose 100 mg/dL (70-105); Lactate Dehydrogenase 170 U/L (135-225); Phosphorous 3.9 mg/dL (2.5-4.5); Triglycerides 132 mg/dL (<150); Uric Acid 1.2 mg/dL (2.5-8.0)
[2022-08-07] MEDS: PANTOPRAZOLE 40 MG VIAL IV SCH ×2 (07:36→16:17)
[2022-08-07] MEDS: ENOXAPARIN 40 MG/0.4 ML SYRINGE SQ SCH (08:22)
[2022-08-07] MEDS: METHYLNALTREXONE BROMIDE 12 MG/0.6 ML SYRINGE SQ SCH (08:24)
--- NOTE | 2022-08-07 08:28 | XRay Report ---
HISTORY: Follow-up ileus, gastric outlet obstruction FINDINGS: Supine and erect views were obtained. The stomach and small intestine are decompressed. There is a moderate amount of retained contrast in the large intestine from the cecum to the rectum. Large intestine is normal in caliber and there is a small amount of stool within it. The quantity of barium in the large intestine has not changed significantly since the prior x-ray done on 07/31/22. Since that time, the patient had abdominal surgery. There is a row surgical skin dorie in the midline of the abdomen and a row of anastomotic sutures laterally in the left mid abdomen. There are also clips in the gallbladder fossa. No free intra-abdominal air is present. No soft tissue mass is detected. IMPRESSION: No evidence of ileus or bowel obstruction Slow transit time in the large intestine with residual contrast in the colon since 07/31/22 Interpreted and Authenticated by: Addison Chaves 08/07/22
[2022-08-07] MEDS: METHOCARBAMOL 1,000 MG/10 ML VIAL IV PRN (14:14)
[2022-08-07] MEDS ORDERED: POTASSIUM CHLORIDE IV SCH (15:00)
[2022-08-07] MEDS ORDERED: [UNRECOGNIZED DRUG - OTHER] IV SCH (15:00)
[2022-08-07] MEDS ORDERED: MAGNESIUM SULFATE IV SCH (15:00)
[2022-08-07] MEDS ORDERED: CALCIUM GLUCONATE IV SCH (15:00)
[2022-08-07] MEDS: FAT EMULSION 20% 250 ML IV SCH (16:06)
--- NOTE | 2022-08-07 16:59 | General Surgery Progress Note ---
SUBJECTIVE Subjective Patient information: Note initiated : 08/07/22 at 4:55 pm Service Date, if different from initiated Date: [] Patient: Kimmie Morrow 56 y/o F admitted on 07/31/22 for gastric outlet obstruction EGD. Chief Complaint: [] Principal diagnosis: Gastric outlet obstruction; gastroparesis, Interval history: Patient is doing well. She had multiple bowel movements yesterday and today. She denies nausea with her full liquid diet. Her abdomen is soft. Her stomach is no longer distended. She does not complain of any abdominal pain Constitutional Vitals: Vital Signs Temp Pulse Resp BP Pulse Ox O2 Del Method O2 Flow Rate 98.0 F 90 22 115/62 96 1 08/07/22 12:00 08/07/22 12:00 08/07/22 12:00 08/07/22 12:00 08/07/22 12:00 08/07/22 12:00 08/02/22 18:34 Period Temp Pulse Resp BP Sys/Burnham Pulse Ox O2 Del Method O2 Flow Rate Last 24 Hr 98.0 F-99.0 F 64-90 22-24 107-125/55-62 96-97 Room Air-Room Air Intake and Output 08/07/22 08/07/22 08/07/22 05:59 13:59 21:59 Intake Total 1860 1075 1320 Output Total 3500 700 Balance -1106 561 8479 Weight 114 lb Patient Weight 08/08/22 05:59 Weight 114 lb Intake & Output: Intake & Output 08/07/22 08/07/22 08/07/22 05:59 13:59 21:59 Intake Total 1860 1075 1320 Output Total 3500 700 Balance -8655 878 2615 Weight 114 lb Intake: IV 1150 1075 1320 Sodium Chloride 0.9% 1,000 ml @ 1000 1000 100 mls/hr IV .Q10H [facility] Rx#: [id number] Calcium Gluconate 13.95 Meq 1320 Magnesium Sulfate 16.24 Meq Potassium Chloride 30 Meq Infuvite Adult 10 ml In Clinimix 5%-20% Solution 2,000 ml @ 60 mls/hr IV DAILY@1500 [facility] Rx#:[id number] Oral 710 Output: Void Amount 3500 700 Other: Urine Appearance Clear Clear Urine Color Pale Pale Stool Size Moderate Stool Color Brown Stool Consistency Watery Loose # Voids 1 # Bowel Movements 2 Eye Eye exam: Present normal appearance and PERRL Pupils: Present normal accommodation ENT ENT exam: Present mucous membranes moist Neck Neck exam: Present normal inspection Respiratory Respiratory exam: Present normal respiratory exam Cardiovascular Cardiovascular exam: Present normal rate and rhythm, RRR, +S1 and +S2; Absent JVD GI/Abdominal GI/Abdominal exam: Present normal bowel sounds and soft; Absent tenderness Extremities Exam Extremities exam: Present full ROM and neurovascular intact A/P Assessment and plan (1) Duodenal obstruction: Status: Acute (2) Unintentional weight loss: Status: Acute (3) Protein calorie malnutrition: Status: Acute (4) Gastric outlet obstruction: Status: Acute (5) Gastroparesis: Status: Acute Plan Patient is doing well. Her diet is advanced to soft. If she remains stable and does not have nausea she will be discharged home tomorrow TPN will be tapered Sepsis Sepsis Identified: No Time Spent With Patient Time: Total time spent is greater than 50% in coordination of care (as documented) at patient's floor/unit and/or counseling patient:
[2022-08-07] MEDS: diphenhydrAMINE 50 MG/ML VIAL IV SCH (21:04)
[2022-08-07] MEDS: LORazepam 2 MG/ML VIAL IV PRN (22:21)
[2022-08-08] MEDS: INSULIN LISPRO 1 UNIT/0.01 ML UNIT SQ SCH ×3 (00:25→11:37)
[2022-08-08] MEDS: HYDROmorphone 1 MG/ML SYRINGE IV PRN ×4 (00:25→12:58)
[2022-08-08] MEDS: METOCLOPRAMIDE 10 MG/2 ML VIAL IV SCH ×3 (00:25→11:29)
[2022-08-08] MEDS: ACETAMINOPHEN 750 MG/75 ML BAG IV SCH ×3 (00:28→11:30)
[2022-08-08] MEDS: 0.9 % SODIUM CHLORIDE 1,000 ML IV SCH ×3 (01:26→12:20)
[2022-08-08] MEDS: oxyCODONE HCL 5 MG TABLET PO PRN ×2 (02:03→11:27)
[2022-08-08 07:49] LABS: ALT/SGPT 11 U/L (<40); AST/SGOT 22 U/L (<32); Albumin 2.9 gm/dL (3.2-5.2); Albumin/Globulin Ratio 1.2 (1.0-2.3); Alkaline Phosphatase 41 U/L (39-117); Bilirubin,Direct < 0.2 mg/dL (0-0.3); Bilirubin,Total < 0.2 mg/dL (0.1-1.0); Blood Urea Nitrogen 9 mg/dL (6-20); Calcium 8.7 mg/dL (8.6-10.4); Carbon Dioxide 26 mmol/L (22-30); Chloride 105 mmol/L (96-108); Globulin 2.4 gm/dL (2.2-3.7); Glomerular Filtration Rate 102; Glucose 101 mg/dL (70-105); Lactate Dehydrogenase 170 U/L (135-225); Phosphorous 4.1 mg/dL (2.5-4.5); Triglycerides 172 mg/dL (<150); Uric Acid 1.4 mg/dL (2.5-8.0)
[2022-08-08] MEDS: PANTOPRAZOLE 40 MG VIAL IV SCH (08:10)
[2022-08-08] MEDS: 0.9 % SODIUM CHLORIDE 10 ML SYRINGE IV SCH (09:44)
[2022-08-08] MEDS: ENOXAPARIN 40 MG/0.4 ML SYRINGE SQ SCH (09:47)
[2022-08-08] MEDS: METHYLNALTREXONE BROMIDE 12 MG/0.6 ML SYRINGE SQ SCH (09:49)
[2022-08-08] MEDS ORDERED: CALCIUM GLUCONATE IV SCH (09:54)
[2022-08-08] MEDS ORDERED: [UNRECOGNIZED DRUG - OTHER] IV SCH (09:54)
[2022-08-08] MEDS ORDERED: POTASSIUM CHLORIDE IV SCH (09:54)
[2022-08-08] MEDS ORDERED: MAGNESIUM SULFATE IV SCH (09:54)
--- NOTE | 2022-08-08 12:36 | Discharge Summary ---
Discharge Provider Provider IMPORTANT FOLLOW-UP INFORMATION FOR PCP: Patient information: Note initiated : 08/08/22 at 12:22 pm Service Date, if different from initiated Date: [] Patient: Kimmie Morrow 56 y/o F admitted on 07/31/22 for gastric outlet obstruction EGD. Chief Complaint: [] Date of admission: 07/31/22 14:52 Discharge date: 08/08/22 Primary care physician: Shakila Crockett RN Admitting clinician: Mariana Hill Attending physician on admission: Mariana Hill Attending physician on discharge: Mariana Hill Discharging clinician: Mariana Hill COURSE Hospital Course Hospital course: 56-year-old female seen in the office for recurrent postprandial nausea and vomiting with greater than 60 pound weight loss. Patient had gastric emptying study which showed severe delay in gastric emptying. An upper GI showed delayed emptying also. CT showed dilated stomach and duodenum with decompressed distal bowel. Patient had diagnosis of gastric outlet obstruction probably due to SMA syndrome. She was admitted acutely because of recurrent nausea vomiting and developing dehydration. EGD was performed on 01 August and it showed a large gastric bile pool and dilated proximal duodenum. There was obvious hypoperistalsis of the stomach but the duodenum had vigorous activity. She was explored around 02 August. She had a dilated stomach with normal bowel otherwise. A retrocolic gastrojejunostomy was performed. She was started on TPN and after return of intestinal activity her diet was slowly advanced. She is now tolerating a soft GI diet without any pain nausea or vomiting. She has not had any difficulty with her bowel movements. Because she has been on long- term opiates she was given 3 doses of Relistor to supplement return of increased activity. She is clinically stable at this time and is ready for discharge home. 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 Secondary discharge diagnosis: Primary gastroparesis Severe weight loss due to protein calorie malnutrition Prior history of pulmonary embolism History of atrial fibrillation Long-term opiate use Prior history of non-Hodgkin's lymphoma Bipolar disorder Chronic pain syndrome Chronic obstructive lung disease Reason for admission: Gastric outlet obstruction with recurrent nausea vomiting Procedures: Esophagogastroduodenoscopy 01 August 2020 Retrocolic gastrojejunostomy 02 August 2020 Pertinent studies/significant findings: None Complications: None Time Spent with Patient Time attestation: Total time spent providing and/or coordinating discharge services: Time spent: Less than 30 minutes Physical Examination Vital Signs Vital signs: Temp Pulse Resp BP Pulse Ox O2 Del Method O2 Flow Rate 98.5 F 72 16 105/79 95 1 08/08/22 12:00 08/08/22 03:14 08/08/22 12:00 08/08/22 12:00 08/08/22 12:00 08/08/22 12:00 08/02/22 18:34 General physical appearance General physical exam: no distress, moderate pain, cachectic and chronically ill Eyes Eye exam: PERRL and normal ocular movement ENT ENT exam: normal mucosa, no hearing loss and other (Edentulous) Head Head exam IM: Present atraumatic, normal inspection and normocephalic Neck Neck exam: no masses, no bruits, trachea midline, no lymphadenopathy and no venous distension Cardiovascular Cardiovascular exam IM: Present normal rate and rhythm, RRR, +S1 and +S2; Absent JVD Respiratory Respiratory exam: normal expansion, normal respiratory effort and clear to auscultation Abdomen Abdomen: Present soft, non tender, bowel sounds (Active bowel sounds) and surgical scars (Healing surgical scar); Absent distended Integumentary Integumentary: Present no rash, no growths and no abnormal pigmentation Neurologic Neurologic: Present normal coordination and normal sensation Musculoskeletal Musculoskeletal: Present normal gait and normal posture Psychiatric Psychiatric: Present oriented to time, oriented to person, oriented to place and memory intact Discharge Plan Patient/Caregiver Discharge Instructions Activity: increase activity as tolerated Diet: Dysphagia Level 6 Soft & Bite-Sized Foods Prescriptions: No Action Yupelri 175 mcg/3 mL solution for nebulization 175 mcg inhalation QDAY Qty: 90 0RF Rx Instructions: Need follow up appt prior to any more refills oxycodone-acetaminophen 10-325 mg tablet 1 tab PO TID PRN (Reason: Pain) Eliquis 5 mg tablet 5 mg PO BID levothyroxine 100 mcg tablet 100 mcg PO QDAY metoclopramide HCl [Reglan] 10 mg tablet 10 mg PO QAC Qty: 90 0RF Rx Instructions: administer 30 minutes before meals omeprazole 20 MG capsule 20 mg PO BIDAC topiramate 25 mg tablet 1 - 4 tab PO BID albuterol sulfate 90 mcg/actuation HFA aerosol inhaler 2 puff INHALATION Q6HP PRN (Reason: dyspnea) eszopiclone 1 mg tablet 1 tab PO HS fluoxetine 40 mg capsule 2 cap PO QDAY zolpidem 10 mg tablet 1 tab PO HS naloxone 4 mg/actuation spray,non-aerosol 1 spray intranasal QDAY scopolamine base 1 mg over 3 days patch 3 day 1 patch transdermal Q72H Qty: 24 0RF promethazine 25 mg suppository 25 mg [place] Q6H PRN (Reason: nausea and vomiting) Qty: 12 2RF Xtampza ER 18 mg PO BID atorvastatin 40 mg Tablet 40 mg PO QDAY Prescription drug monitoring program results: PDMP not reviewed Follow Up Plan Follow up with: Mariana Hill MD [Physician] - (Office visit in 2 weeks) Patient Disposition: Home, Self-Care Plan of Treatment: Sure you take the metoclopramide 4 times daily. Eliquis therapy as before admission May resume Eliquis today Prognosis: Good Rehab Potential: Good I certify that the patient requires SNF services: No Overall status at discharge: patient is progressing back to baseline Discharge Orders: Discharge Order (Routine); Ordered 08/08/22 Ordered By: Mariana Hill Pending Pending Pending: Resuscitation Status Resuscitate (Full Code) Diet GI Soft/Transitional Start Moira Sep 1604 Benzocaine (Benzocaine 1 [place] Bottle) 1 spray TOPICAL PRN PRN PRN Reason: Pain Last Admin: 07/31/22 17:19 Dose: 1 spray Documented By: THERESEEHL Diagnostic Test (Pha) (Accu-Chek 1 Each Strip) 1 each FS Q6 LAKESHIA Last Admin: 08/08/22 11:33 Dose: 1 each Documented By: Admin: 08/08/22 05:35 Dose: 1 each Documented By: Admin: 08/08/22 00:24 Dose: 1 each Documented By: Admin: 08/07/22 17:19 Dose: 1 each Documented By: Admin: 08/07/22 11:40 Dose: 1 each Documented By: Admin: 08/07/22 05:29 Dose: 1 each Documented By: Admin: 08/07/22 00:17 Dose: 1 each Documented By: Admin: 08/06/22 18:22 Dose: 1 each Documented By: Admin: 08/06/22 12:36 Dose: 1 each Documented By: Admin: 08/06/22 05:17 Dose: 1 each Documented By: Admin: 08/06/22 00:38 Dose: 1 each Documented By: Admin: 08/05/22 17:13 Dose: 1 each Documented By: Admin: 08/05/22 11:54 Dose: 1 each Documented By: Admin: 08/05/22 05:49 Dose: 1 each Documented By: Admin: 08/05/22 00:33 Dose: 1 each Documented By: Admin: 08/04/22 17:41 Dose: 1 each Documented By: Admin: 08/04/22 12:21 Dose: 1 each Documented By: Admin: 08/04/22 05:17 Dose: 1 each Documented By: Admin: 08/03/22 23:08 Dose: 1 each Documented By: Admin: 08/03/22 17:13 Dose: 1 each Documented By: Admin: 08/03/22 12:08 Dose: 1 each Documented By: Admin: 08/03/22 05:26 Dose: 1 each Documented By: Admin: 08/03/22 00:24 Dose: 1 each Documented By: DIANNE Diphenhydramine HCl (Diphenhydramine 50 Mg/Ml Vial) 50 mg IV QHS [facility] Admin: 08/07/22 21:04 Dose: 50 mg Documented By: Admin: 08/06/22 20:28 Dose: 50 mg Documented By: Admin: 08/05/22 20:13 Dose: 50 mg Documented By: Admin: 08/04/22 19:57 Dose: 50 mg Documented By: Admin: 08/03/22 21:06 Dose: 50 mg Documented By: ROCIO Enoxaparin Sodium (Enoxaparin 40 Mg/0.4 Ml Syringe) 40 mg SQ DAILY [facility] Admin: 08/08/22 09:47 Dose: 40 mg Documented By: Admin: 08/07/22 08:22 Dose: 40 mg Documented By: Admin: 08/06/22 09:05 Dose: 40 mg Documented By: Admin: 08/05/22 08:05 Dose: 40 mg Documented By: Admin: 08/04/22 07:52 Dose: 40 mg Documented By: Admin: 08/03/22 08:18 Dose: 40 mg Documented By: RUBEN Fentanyl (Fentanyl 100 Mcg/2 Ml Vial) 25 mcg IV Q2HP PRN; Protocol PRN Reason: Per Pain Protocol Last Admin: 08/02/22 14:09 Dose: 25 mcg Documented By: CHRISTINE Heparin Sodium (Porcine) (Heparin Flush 10 Units/Ml 5 Ml Syringe) 2 ml IV Q12 [facility] Last Admin: 08/08/22 09:44 Dose: 2 ml Documented By: Admin: 08/07/22 21:05 Dose: 2 ml Documented By: Admin: 08/07/22 08:19 Dose: 2 ml Documented By: Admin: 08/07/22 00:09 Dose: 2 ml Documented By: Admin: 08/06/22 09:27 Dose: Not Given Documented By: Admin: 08/06/22 00:21 Dose: 2 ml Documented By: Admin: 08/05/22 11:31 Dose: 2 ml Documented By: Admin: 08/04/22 19:59 Dose: 2 ml Documented By: Admin: 08/04/22 13:25 Dose: 2 ml Documented By: Admin: 08/03/22 21:06 Dose: 2 ml Documented By: Admin: 08/03/22 08:18 Dose: 2 ml Documented By: Admin: 08/02/22 22:34 Dose: 2 ml Documented By: DIANNE Hydromorphone HCl (Hydromorphone 1 Mg/Ml Syringe) 1 mg IV Q2HP PRN; Protocol PRN Reason: Per Pain Protocol Last Admin: 08/08/22 08:09 Dose: 1 mg Documented By: Admin: 08/08/22 03:07 Dose: 1 mg Documented By: Admin: 08/08/22 00:25 Dose: 1 mg Documented By: Admin: 08/07/22 19:26 Dose: 1 mg Documented By: Admin: 08/07/22 15:33 Dose: 1 mg Documented By: Admin: 08/07/22 12:47 Dose: 1 mg Documented By: Admin: 08/07/22 08:11 Dose: 1 mg Documented By: Admin: 08/07/22 05:28 Dose: 1 mg Documented By: Admin: 08/07/22 02:29 Dose: 1 mg Documented By: Admin: 08/07/22 00:06 Dose: 1 mg Documented By: Admin: 08/06/22 21:43 Dose: 1 mg Documented By: Admin: 08/06/22 18:58 Dose: 1 mg Documented By: Admin: 08/06/22 16:04 Dose: 1 mg Documented By: Admin: 08/06/22 12:04 Dose: 1 mg Documented By: Admin: 08/06/22 07:53 Dose: 1 mg Documented By: Admin: 08/06/22 05:13 Dose: 1 mg Documented By: Admin: 08/06/22 02:21 Dose: 1 mg Documented By: Admin: 08/06/22 00:21 Dose: 1 mg Documented By: Admin: 08/05/22 22:26 Dose: 1 mg Documented By: Admin: 08/05/22 20:13 Dose: 1 mg Documented By: Admin: 08/05/22 17:37 Dose: 1 mg Documented By: Admin: 08/05/22 15:15 Dose: 1 mg Documented By: Admin: 08/05/22 12:44 Dose: 1 mg Documented By: Admin: 08/05/22 10:24 Dose: 1 mg Documented By: Admin: 08/05/22 08:06 Dose: 1 mg Documented By: Admin: 08/05/22 05:40 Dose: 1 mg Documented By: Admin: 08/05/22 03:17 Dose: 1 mg Documented By: Admin: 08/05/22 00:41 Dose: 1 mg Documented By: Admin: 08/04/22 22:33 Dose: 1 mg Documented By: Admin: 08/04/22 19:57 Dose: 1 mg Documented By: Admin: 08/04/22 17:19 Dose: 1 mg Documented By: MARK Sodium Chloride (Sodium Chloride 0.9%) 1,000 mls @ 100 mls/hr IV .Q10H [facility] Admin: 08/08/22 12:20 Dose: Not Given Documented By: Admin: 08/08/22 09:50 Dose: 100 mls/hr Documented By: Infusion: 08/08/22 07:41 Dose: 100 mls/hr Documented By: Admin: 08/08/22 01:26 Dose: Not Given Documented By: Admin: 08/07/22 21:41 Dose: 100 mls/hr Documented By: Infusion: 08/07/22 20:41 Dose: 100 mls/hr Documented By: Admin: 08/07/22 16:12 Dose: Not Given Documented By: Admin: 08/07/22 10:41 Dose: 100 mls/hr Documented By: Infusion: 08/07/22 10:04 Dose: 100 mls/hr Documented By: Admin: 08/07/22 07:38 Dose: Not Given Documented By: Admin: 08/07/22 00:04 Dose: 100 mls/hr Documented By: Infusion: 08/06/22 22:10 Dose: 100 mls/hr Documented By: Admin: 08/06/22 12:10 Dose: 100 mls/hr Documented By: Infusion: 08/06/22 10:25 Dose: 0 mls/hr Documented By: Admin: 08/06/22 00:25 Dose: 100 mls/hr Documented By: Infusion: 08/06/22 00:25 Dose: 100 mls/hr Documented By: Admin: 08/05/22 14:35 Dose: 100 mls/hr Documented By: Infusion: 08/05/22 13:22 Dose: 100 mls/hr Documented By: Admin: 08/05/22 03:22 Dose: 100 mls/hr Documented By: Infusion: 08/05/22 03:22 Dose: 100 mls/hr Documented By: Admin: 08/04/22 18:03 Dose: 100 mls/hr Documented By: Infusion: 08/04/22 17:53 Dose: 100 mls/hr Documented By: Admin: 08/04/22 07:53 Dose: 100 mls/hr Documented By: Infusion: 08/04/22 07:06 Dose: 100 mls/hr Documented By: Admin: 08/03/22 21:06 Dose: 100 mls/hr Documented By: Infusion: 08/03/22 19:21 Dose: 100 mls/hr Documented By: Admin: 08/03/22 12:17 Dose: Not Given Documented By: Admin: 08/03/22 09:21 Dose: 100 mls/hr Documented By: Infusion: 08/03/22 09:21 Dose: 100 mls/hr Documented By: Admin: 08/02/22 23:35 Dose: 100 mls/hr Documented By: Infusion: 08/02/22 23:35 Dose: 100 mls/hr Documented By: Admin: 08/02/22 16:58 Dose: Not Given Documented By: Admin: 08/02/22 13:35 Dose: 100 mls/hr Documented By: Infusion: 08/02/22 12:00 Dose: 0 mls/hr Documented By: Admin: 08/02/22 06:26 Dose: Not Given Documented By: Admin: 08/02/22 00:50 Dose: 100 mls/hr Documented By: Infusion: 08/01/22 23:04 Dose: 100 mls/hr Documented By: Admin: 08/01/22 13:04 Dose: 100 mls/hr Documented By: Infusion: 08/01/22 13:04 Dose: 100 mls/hr Documented By: Admin: 08/01/22 10:06 Dose: Not Given Documented By: Admin: 08/01/22 03:07 Dose: 100 mls/hr Documented By: Infusion: 08/01/22 02:19 Dose: 100 mls/hr Documented By: Admin: 07/31/22 16:19 Dose: 100 mls/hr Documented By: CHRISTINE Acetaminophen (Ofirmev) 750 mg in 75 mls @ 150 mls/hr IV Q6H LAKESHIA; Protocol Last Infusion: 08/08/22 12:00 Dose: 0 mls/hr Documented By: Admin: 08/08/22 11:30 Dose: 150 mls/hr Documented By: Infusion: 08/08/22 06:00 Dose: 0 mls/hr Documented By: Admin: 08/08/22 05:29 Dose: 150 mls/hr Documented By: Infusion: 08/08/22 00:58 Dose: 0 mls/hr Documented By: Admin: 08/08/22 00:28 Dose: 150 mls/hr Documented By: Infusion: 08/07/22 17:45 Dose: 0 mls/hr Documented By: Admin: 08/07/22 17:12 Dose: 150 mls/hr Documented By: Infusion: 08/07/22 12:20 Dose: 0 mls/hr Documented By: Admin: 08/07/22 11:47 Dose: 150 mls/hr Documented By: Infusion: 08/07/22 05:56 Dose: 0 mls/hr Documented By: Admin: 08/07/22 05:26 Dose: 150 mls/hr Documented By: Infusion: 08/07/22 00:35 Dose: 0 mls/hr Documented By: Admin: 08/07/22 00:05 Dose: 150 mls/hr Documented By: Admin: 08/06/22 18:29 Dose: Not Given Documented By: Infusion: 08/06/22 14:50 Dose: 0 mls/hr Documented By: Admin: 08/06/22 14:20 Dose: 150 mls/hr Documented By: Infusion: 08/06/22 05:45 Dose: 0 mls/hr Documented By: Admin: 08/06/22 05:15 Dose: 150 mls/hr Documented By: Infusion: 08/06/22 02:00 Dose: 0 mls/hr Documented By: Admin: 08/06/22 00:23 Dose: 150 mls/hr Documented By: Infusion: 08/05/22 18:35 Dose: 0 mls/hr Documented By: Admin: 08/05/22 18:03 Dose: 150 mls/hr Documented By: Infusion: 08/05/22 17:16 Dose: 0 mls/hr Documented By: Admin: 08/05/22 11:28 Dose: 150 mls/hr Documented By: Infusion: 08/05/22 06:10 Dose: 0 mls/hr Documented By: Admin: 08/05/22 05:38 Dose: 150 mls/hr Documented By: Infusion: 08/05/22 00:52 Dose: 0 mls/hr Documented By: Admin: 08/05/22 00:22 Dose: 150 mls/hr Documented By: Infusion: 08/04/22 18:09 Dose: 0 mls/hr Documented By: Admin: 08/04/22 17:20 Dose: 150 mls/hr Documented By: Infusion: 08/04/22 13:24 Dose: 0 mls/hr Documented By: Admin: 08/04/22 12:19 Dose: 150 mls/hr Documented By: Infusion: 08/04/22 06:11 Dose: 0 mls/hr Documented By: Admin: 08/04/22 05:30 Dose: 150 mls/hr Documented By: Infusion: 08/04/22 00:26 Dose: 0 mls/hr Documented By: Admin: 08/03/22 23:18 Dose: 150 mls/hr Documented By: Infusion: 08/03/22 17:43 Dose: 0 mls/hr Documented By: Admin: 08/03/22 17:13 Dose: 150 mls/hr Documented By: Infusion: 08/03/22 12:30 Dose: 0 mls/hr Documented By: Admin: 08/03/22 11:56 Dose: 150 mls/hr Documented By: RUBEN Calcium Gluconate 13.95 meq/Magnesium Sulfate 16.24 meq/Potassium Chloride 30 meq/Multivitamins/Minerals 10 ml/Potassium Phosphate 20 meq/Amino Acids 2,063.5455 mls @ 30 mls/hr IV DAILY@1500 LAKESHIA Last Admin: 08/08/22 10:46 Dose: 30 mls/hr Documented By: SHALOM Insulin Human Lispro (Insulin Lispro 1 Unit/0.01 Ml Unit) 0 unit SQ Q6 LAKESHIA; Protocol Last Admin: 08/08/22 11:37 Dose: Not Given Documented By: Admin: 08/08/22 05:35 Dose: Not Given Documented By: Admin: 08/08/22 00:25 Dose: Not Given Documented By: Admin: 08/07/22 17:22 Dose: Not Given Documented By: Admin: 08/07/22 11:51 Dose: Not Given Documented By: Admin: 08/07/22 06:13 Dose: Not Given Documented By: Admin: 08/07/22 00:17 Dose: Not Given Documented By: Admin: 08/06/22 18:10 Dose: Not Given Documented By: Admin: 08/06/22 12:39 Dose: Not Given Documented By: Admin: 08/06/22 05:30 Dose: Not Given Documented By: Admin: 08/06/22 00:40 Dose: Not Given Documented By: Admin: 08/05/22 17:17 Dose: Not Given Documented By: Admin: 08/05/22 11:55 Dose: Not Given Documented By: Admin: 08/05/22 05:55 Dose: Not Given Documented By: Admin: 08/05/22 00:42 Dose: Not Given Documented By: Admin: 08/04/22 18:05 Dose: Not Given Documented By: Admin: 08/04/22 12:24 Dose: Not Given Documented By: Admin: 08/04/22 05:18 Dose: Not Given Documented By: Admin: 08/03/22 23:08 Dose: Not Given Documented By: Admin: 08/03/22 17:13 Dose: Not Given Documented By: Admin: 08/03/22 12:08 Dose: Not Given Documented By: Admin: 08/03/22 05:27 Dose: Not Given Documented By: Admin: 08/03/22 00:24 Dose: Not Given Documented By: DIANNE Lorazepam (Lorazepam 2 Mg/Ml Vial) 1 mg IV Q6HP PRN PRN Reason: ANXIETY/SEDATION Last Admin: 08/07/22 22:21 Dose: 1 mg Documented By: Admin: 08/01/22 05:47 Dose: 1 mg Documented By: Admin: 07/31/22 17:43 Dose: 1 mg Documented By: CHRISTINE Methocarbamol (Methocarbamol 1,000 Mg/10 Ml Vial) 750 mg IV Q6HP PRN PRN Reason: Muscle Spasm Last Admin: 08/07/22 14:14 Dose: 750 mg Documented By: Admin: 08/06/22 21:42 Dose: 750 mg Documented By: Admin: 08/06/22 12:04 Dose: 750 mg Documented By: Admin: 08/06/22 05:13 Dose: 750 mg Documented By: Admin: 08/06/22 00:21 Dose: 750 mg Documented By: Admin: 08/05/22 11:54 Dose: 750 mg Documented By: [email or web address] Admin: 08/05/22 05:38 Dose: 750 mg Documented By: Admin: 08/05/22 00:25 Dose: 750 mg Documented By: Admin: 08/04/22 18:48 Dose: 750 mg Documented By: Admin: 08/04/22 12:18 Dose: 750 mg Documented By: Admin: 08/04/22 00:59 Dose: 750 mg Documented By: Admin: 08/03/22 17:39 Dose: 750 mg Documented By: RUBEN Metoclopramide HCl (Metoclopramide 10 Mg/2 Ml Vial) 10 mg IV Q6 LAKESHIA [facility] Admin: 08/08/22 11:29 Dose: 10 mg Documented By: Admin: 08/08/22 05:29 Dose: 10 mg Documented By: Admin: 08/08/22 00:25 Dose: 10 mg Documented By: Admin: 08/07/22 17:09 Dose: 10 mg Documented By: Admin: 08/07/22 11:47 Dose: 10 mg Documented By: Admin: 08/07/22 05:28 Dose: 10 mg Documented By: Admin: 08/07/22 00:06 Dose: 10 mg Documented By: Admin: 08/06/22 17:54 Dose: 10 mg Documented By: Admin: 08/06/22 14:18 Dose: 10 mg Documented By: Admin: 08/06/22 05:13 Dose: 10 mg Documented By: Admin: 08/06/22 00:21 Dose: 10 mg Documented By: Admin: 08/05/22 17:37 Dose: 10 mg Documented By: Admin: 08/05/22 11:30 Dose: 10 mg Documented By: Admin: 08/05/22 05:49 Dose: 10 mg Documented By: Admin: 08/05/22 00:26 Dose: 10 mg Documented By: Admin: 08/04/22 18:09 Dose: 10 mg Documented By: Admin: 08/04/22 12:17 Dose: 10 mg Documented By: Admin: 08/04/22 05:30 Dose: 10 mg Documented By: Admin: 08/03/22 23:18 Dose: 10 mg Documented By: Admin: 08/03/22 17:39 Dose: 10 mg Documented By: Admin: 08/03/22 12:15 Dose: 10 mg Documented By: Admin: 08/03/22 05:18 Dose: 10 mg Documented By: Admin: 08/03/22 00:19 Dose: 10 mg Documented By: Admin: 08/02/22 17:09 Dose: 10 mg Documented By: Admin: 08/02/22 13:29 Dose: Not Given Documented By: Admin: 08/02/22 05:20 Dose: Not Given Documented By: Admin: 08/02/22 00:52 Dose: Not Given Documented By: Admin: 08/01/22 18:15 Dose: Not Given Documented By: Admin: 08/01/22 12:11 Dose: Not Given Documented By: Admin: 08/01/22 05:49 Dose: Not Given Documented By: Admin: 08/01/22 02:49 Dose: Not Given Documented By: Admin: 07/31/22 17:42 Dose: 10 mg Documented By: CHRISTINE Ondansetron HCl (Ondansetron 4 Mg/2 Ml Vial) 4 mg IV Q6HP PRN PRN Reason: Nausea And Vomiting Last Admin: 08/02/22 00:52 Dose: 4 mg Documented By: Admin: 08/01/22 09:52 Dose: 4 mg Documented By: Admin: 07/31/22 21:35 Dose: 4 mg Documented By: DIANNE Oxycodone HCl (Oxycodone Hcl 5 Mg Tablet) 10 mg PO Q4HP PRN; Protocol PRN Reason: Per Pain Protocol Last Admin: 08/08/22 11:27 Dose: 10 mg Documented By: Admin: 08/08/22 02:03 Dose: 10 mg Documented By: Admin: 08/07/22 21:05 Dose: 10 mg Documented By: Admin: 08/07/22 17:11 Dose: 10 mg Documented By: Admin: 08/07/22 10:35 Dose: 10 mg Documented By: Admin: 08/07/22 04:13 Dose: 10 mg Documented By: Admin: 08/06/22 20:28 Dose: 10 mg Documented By: Admin: 08/06/22 14:21 Dose: 10 mg Documented By: Admin: 08/06/22 09:41 Dose: 10 mg Documented By: Admin: 08/06/22 03:20 Dose: 10 mg Documented By: Admin: 08/05/22 19:49 Dose: 10 mg Documented By: Admin: 08/05/22 14:34 Dose: 10 mg Documented By: [email or web address] Pantoprazole Sodium (Pantoprazole 40 Mg Vial) 40 mg IV BIDAC LAKESHIA Last Admin: 08/08/22 08:10 Dose: 40 mg Documented By: Admin: 08/07/22 16:17 Dose: 40 mg Documented By: Admin: 08/07/22 07:36 Dose: 40 mg Documented By: Admin: 08/06/22 17:01 Dose: 40 mg Documented By: Admin: 08/06/22 08:10 Dose: 40 mg Documented By: Admin: 08/05/22 17:37 Dose: 40 mg Documented By: Admin: 08/05/22 07:55 Dose: 40 mg Documented By: Admin: 08/04/22 17:19 Dose: 40 mg Documented By: Admin: 08/04/22 07:51 Dose: 40 mg Documented By: Admin: 08/03/22 16:01 Dose: 40 mg Documented By: Admin: 08/03/22 06:42 Dose: 40 mg Documented By: Admin: 08/02/22 17:09 Dose: 40 mg Documented By: Admin: 08/02/22 06:33 Dose: 40 mg Documented By: Admin: 08/01/22 17:52 Dose: 40 mg Documented By: Admin: 08/01/22 07:25 Dose: 40 mg Documented By: Admin: 07/31/22 17:42 Dose: 40 mg Documented By: CHRISTINE Promethazine HCl (Promethazine 25 Mg/Ml Vial) 12.5 mg IV Q6HP PRN PRN Reason: Nausea And Vomiting Last Admin: 08/07/22 05:28 Dose: 12.5 mg Documented By: Admin: 08/06/22 21:43 Dose: 12.5 mg Documented By: Admin: 08/06/22 05:13 Dose: 12.5 mg Documented By: Admin: 08/06/22 00:20 Dose: 12.5 mg Documented By: Admin: 08/05/22 05:38 Dose: 12.5 mg Documented By: Admin: 08/05/22 00:26 Dose: 12.5 mg Documented By: Admin: 08/04/22 18:48 Dose: 12.5 mg Documented By: Admin: 08/04/22 02:30 Dose: 12.5 mg Documented By: Admin: 08/03/22 19:51 Dose: 12.5 mg Documented By: Admin: 08/03/22 13:30 Dose: 12.5 mg Documented By: Admin: 08/03/22 02:35 Dose: 12.5 mg Documented By: Admin: 08/02/22 20:23 Dose: 12.5 mg Documented By: Admin: 08/02/22 14:08 Dose: 12.5 mg Documented By: Admin: 08/02/22 02:45 Dose: 12.5 mg Documented By: Admin: 08/01/22 13:04 Dose: 12.5 mg Documented By: RUBEN Sodium Chloride (0.9 % Sodium Chloride 10 Ml Syringe) 10 ml IV Q12 LAKESHIA Last Admin: 08/08/22 09:44 Dose: 10 ml Documented By: Admin: 08/07/22 21:06 Dose: 10 ml Documented By: Admin: 08/07/22 08:17 Dose: 10 ml Documented By: Admin: 08/07/22 00:09 Dose: 10 ml Documented By: Admin: 08/06/22 07:50 Dose: 10 ml Documented By: Admin: 08/06/22 00:22 Dose: 10 ml Documented By: Admin: 08/05/22 11:32 Dose: 10 ml Documented By: [email or web address] Admin: 08/04/22 19:59 Dose: 10 ml Documented By: Admin: 08/04/22 11:02 Dose: 10 ml Documented By: Admin: 08/03/22 21:06 Dose: 10 ml Documented By: Admin: 08/03/22 08:25 Dose: 10 ml Documented By: Admin: 08/02/22 22:35 Dose: 10 ml Documented By: DIANNE Sodium Chloride (0.9 % Sodium Chloride 10 Ml Syringe) 10 ml IV UD PRN PRN Reason: FLUSH Last Admin: 08/06/22 17:05 Dose: 10 ml Documented By: [email or web address] Shift Summary 08/08/22 04:20 Shift Summary by Eli Juárez Primary Diagnosis: Gastric outlet obstruction Registration Status: 07/31 - M/S IP Date of Surgery (if applicable): 08/01 EGD finding: Gastroparesis, Major bile gastritis, Superior Mesenteric Artery (SMA) Syndrome - causes compression of duodenum blocking gastric emptying. 08/02 - laparotomy w/ retrocolic gastrojejunostomy Pertinent Medical Dx/Issue(s): COPD, current smoker, jail opioid use, cardiac stent 2010, s/p resection of stomach, gastroparesis, splenic mass, bipolar 1 disorder, protein calorie malnutrition Vital Signs with Trends: VSS on RA. Neuro: A&Ox4 Ambulation status: Independent. Up to bathroom frequently for urine voiding Diet: GI soft. Accu-cheks Q6. TPN @60mL/hr, lacquer mixer to taper down dose today. Pain management (acute vs. chronic): Scheduled - Skyler Elizabeth. PRN's - Dilaudid 1mg IV prn given approx q3hrs this shift, Oxycodone 10mg 2 tabs prn, Robaxin prn, Phenergan Q6hr prn. Lab/Rad (abnormal, trends): WBC 5.1, H&H 9.4&29.0 Urinary output greater than 30mL/hr? Yes, voiding frequently this shift Date of last BM: 08/07/2022 Lines/Tubes: NS @100mL/hr into 4 lumen central line RIJ. Skin/Wound: Abd midline incision intact w/ dorie & Tegaderm. Tegaderm replaced on 08/07/2022 Recommendations/questions for MD: Discharge Plan (needs, disposition, etc): To return home when medically cleared, possibly 08/08 Initialized on 08/08/22 04:20 - END OF NOTE
[2022-08-08 16:17] LABS: Basophils # (Auto) 0.02 K/mcL (0.00-0.30); Basophils % (Auto) 0.4 % (0.0-2.0); Eosinophils # (Auto) 0.48 K/mcL (0.00-0.70); Eosinophils % (Auto) 10.3 % (0.0-7.0); Hematocrit 29.7 % (34.1-44.9); Hemoglobin 9.4 g/dL (11.2-15.7); Lymphocytes # (Auto) 1.39 K/mcL (1.50-4.80); Lymphocytes % (Auto) 29.8 % (15.5-49.0); Mean Cell Volume 98.7 fL (80.0-100.0); Mean Corpuscular HGB Conc 31.6 g/dL (31.0-36.0); Mean Platelet Volume 11.1 fL (8.8-12.5); Monocytes # (Auto) 0.47 K/mcL (0.10-0.90); Monocytes % (Auto) 10.1 % (1.0-12.0); Neutrophils % (Auto) 48.8 % (38.0-78.0); Platelet Count 207 K/mcL (140-440); RBC 3.01 M/mcL (3.59-5.38); Red Cell Distribution Width 14.4 % (11.5-14.5); WBC 4.7 K/mcL (4.5-11.0)
--- NOTE | 2022-08-26 01:58 | EGD Procedure Note ---
DATE OF PROCEDURE: 08/01/2022 PREOPERATIVE DIAGNOSIS: Gastroparesis with superior mesenteric artery syndrome and weight loss. POSTOPERATIVE DIAGNOSIS: Gastroparesis, major bile gastritis and superior mesenteric artery syndrome. PROCEDURE: Esophagogastroduodenoscopy. FINDINGS: Dilated hypoperistaltic stomach with retained large bile gastric pool, normal duodenum peristalsis with moderate stenosis of the third portion of the duodenum, but without total obstruction. DESCRIPTION OF PROCEDURE: Under general anesthesia, the patient turned to the left lateral decubitus position. Bite block was placed. Timeout procedure was carried out as per protocol. Scope was introduced. The esophagus was normal throughout its length. Upon entering the stomach, there was a very large gastric bile pool. This was suctioned. There was a very minimal peristalsis of the entire body of the stomach. Irrigation was carried out to help dilute the bile, so that a good view of the mucosa could be seen. There was moderate inflammation of the stomach, which was probably due to the large volume of retained bile. Pylorus opened. Duodenum showed active peristalsis without a lot of bile. A third portion of the duodenum showed mild stenosis, but I was able to push past this into the fourth portion and that appeared to be normal. Scope was pulled back. A retroflex view was done. The stomach was then maximally insufflated and it was noted that it had minimal peristalsis. Air was suctioned from the stomach and the scope was removed. The patient tolerated the procedure well. She was awakened and transferred to the floor in satisfactory condition. LCS:man Job ID: [id number] Doc ID: [id number] Mariana Hill M.D.
--- NOTE | 2022-08-26 09:39 | Operative Note ---
DATE OF OPERATION: 08/02/2022 DATE OF PROCEDURE: 08/02/2022 PREOPERATIVE DIAGNOSES: 1. Gastric outlet obstruction. 2. Gastroparesis. 3. Weight loss. POSTOPERATIVE DIAGNOSES: 1. Gastric outlet obstruction. 2. Gastroparesis. 3. Weight loss. PROCEDURE: Retrocolic gastrojejunostomy. SURGEON: Mariana Hill M.D. FINDINGS: Dilated stomach and proximal duodenum. DESCRIPTION OF PROCEDURE: Under general anesthesia, the patient's abdomen was prepped and draped in a sterile field. Timeout procedure was carried out as per protocol. Upper midline incision was made. Exploration revealed that the body of the stomach was thickened and stomach was dilated and somewhat flaccid. Pylorus appeared to be unremarkable and the first portion of the duodenum was dilated, but the palpable second portion was unremarkable. Examination of the rest of the abdomen was unremarkable. The bowel was evaluated from the ligament of Treitz down to the ileocecal valve, and did not have any abnormality noted. Colon was normal. There was a paucity of mesenteric fat due to her extreme weight loss. A loop of jejunum was chosen and was placed through a rent in the colonic mesentery to place a retrocolic. This was then sutured to the dependent portion of the stomach using 2-0 Prolene. An opening was made in the gastric wall and in the jejunum. A REUBEN 55 stapler was placed. The stapler was fired with the effect of the anastomosis between the stomach and jejunum. The opening in the stomach and jejunum was then closed with a TA 60 stapler. The anastomotic staple line was then oversewn using running 2-0 Prolene. The mesentery of the colon was then sutured circumferentially to the wall of the stomach, so that the entire anastomosis was retrocolic and made free without the potential for constriction of the afferent or efferent loops. Nasogastric tube was then planted in the stomach. It was positioned slightly above the anastomosis. Irrigation was carried out. The abdomen was then closed after verifying sponge, needle, and instrument counts were correct. The fascia was closed with running #1 Prolene. Skin and subcutaneous tissue was closed with a 2-0 Vicryl. Skin was closed with dorie. Tegaderm dressing was placed. The patient tolerated the procedure well. She was awakened and transferred to the postanesthetic care unit in satisfactory condition. LCS:teagan Job ID: [id number] Doc ID: [id number] Mariana Hill M.D.
== END 2022-08-08 13:50 | disposition home or self-care (01) | DRG 393 ==
LOC: MEDSUR 14:52
PROVIDERS: ADMIT Family Medicine Adult Medicine; ATTEND Family Medicine Adult Medicine